=== PATIENT | female | born 1975 | race Caucasian/White ===

== ENCOUNTER 2016-07-06 14:49 | Emergency (ER) | payer MEDICARE, MEDICAID ==
[~2016-07-06] VITALS: Ht 157.5 cm; Wt 67.6 kg
[~2016-07-06 14:49] MED LIST: ULTRAM50 MG PO
[2016-07-06] MEDS ORDERED: FLUOXETINE HCL40 MG PO (14:57)
[2016-07-06] MEDS ORDERED: VALACYCLOVIR H500 M1 PO (14:57)
[2016-07-06 15:31] LABS: HEMOGLOBIN 11.9 g/dL (12.2-16.2); LYMPH # 1.5 K/mm3 (0.7-4.5); LYMPH % 21.1 % (10-50.0)
--- OUTSIDE RECORDS SUMMARY | 2016-07-06 16:18 | External Medical Summary Rpt ---
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 MG 06 TA 12 BL 0 ET OX 00 03 03 12 30 CV 83 SH Ac YC 60 -1 -1 0. S 46 EA ti OD 34 1- 1- 00 PH 61 RE ve ON 99 20 20 0 AR R E 12 10 10 MA G HC 1 CY A L # 15 06 MG 12 0 TA BL ET VA 00 09 02 02 30 30 CV 51 VE Ac LT 17 -0 -2 .0 S 48 RA ti RE 30 4- 6- 00 PH 52 X ve X 93 20 20 AR II 50 30 09 10 MA I 0 8 CY WI MG LL #5 IA CA [address] 7 J ET LE 00 10 02 03 30 30 CV 51 SH Ac VO 37 -3 -2 .0 S 18 EA ti TH 81 0- 6- 00 PH 66 RE ve YR 80 20 20 AR R OX 50 09 10 MA G IN 1 CY A E 75 #5 43 MC 7 G TA BL ET CL 00 02 02 00 12 30 CV 82 SH Ac ON 09 -1 -2 0. S 97 EA ti AZ 30 1 6- 00 PH 26 RE ve EP 83 20 20 0 AR R AM 30 10 10 MA G 1 1 CY A MG #6 12 TA 0 BL ET OX 00 02 02 00 12 30 CV 82 SH Ac YC 60 -1 -2 0. S 97 EA ti OD 34 1- 6- 00 PH 25 RE ve ON 99 20 20 0 AR R E 12 10 10 MA G HC 1 CY A L 15 #6 12 MG 0 TA BL ET FL 00 09 02 03 30 30 CV 51 SH Ac UO 09 -0 -2 .0 S 10 EA ti XE 37 4- 6- 00 PH 18 RE ve TI 19 20 20 AR R NE 85 09 10 MA G 6 CY A HC L #5 40 43 7 MG CA PS UL E FL 00 09 01 02 30 30 CV 51 SH Ac UO 09 -0 -2 .0 S 10 EA ti XE 37 4- 8- 00 PH 18 RE ve TI 19 20 20 AR R NE 85 09 10 MA G 6 CY A HC L #5 40 43 7 MG CA PS UL E CL 00 01 00 12 30 CV 82 SH Ac ON 09 -1 -2 0. S 42 EA ti AZ 30 1- 8- 00 PH 71 RE ve EP 83 20 20 0 AR R AM 30 10 10 MA G 1 1 CY A MG #6 12 TA 0 BL ET 10 01 01 00 20 10 CV 51 SH Ac 12 -1 -2 .0 S 85 EA ti 20 1- 8- 00 PH 42 RE ve 65 20 20 AR R 02 10 10 MA G 0 CY A #5 43 7 LE 00 10 01 02 30 30 CV 51 SH Ac VO 37 -3 -2 .0 S 18 EA ti TH 81 0- 8- 00 PH 66 RE ve YR 80 20 20 AR R OX 50 09 10 MA G IN 1 CY A E 75 #5 43 MC 7 G TA BL ET OX 00 01 01 00 12 30 CV 82 SH Ac YC 60 -1 -2 0. S 42 EA ti OD 34 1- 8- 00 PH 72 RE ve ON 99 20 20 0 AR R E 12 10 10 MA G HC 1 CY A L 15 #6 12 MG 0 TA BL ET 67 01 01 00 7. 7 CV 51 SH Ac 70 -1 -2 00 S 85 EA ti 70 1- 8- 0 PH 41 RE ve 32 20 20 AR R 00 10 10 MA G 7 CY A #5 43 7 VA 00 09 01 01 30 30 CV 51 VE Ac LT 17 -0 -2 .0 S 48 RA ti RE 30 4- 8- 00 PH 52 X ve X 93 20 20 AR II 50 30 09 10 MA I 0 8 CY WI MG LL #5 IA CA [address] 7 J ET VA 00 09 12 00 30 30 CV 51 VE Ac LT 17 -0 -1 .0 S 48 RA ti RE 30 4- 7- 00 PH 52 X ve X 93 20 20 AR II 50 30 09 09 MA I 0 8 CY WI MG LL #5 IA CA [address] 7 J ET LE 00 10 12 01 30 30 CV 51 SH Ac VO 37 -3 -1 .0 S 18 EA ti TH 81 0- 7- 00 PH 66 RE ve YR 80 20 20 AR R OX 50 09 09 MA G IN 1 CY A E 75 #5 43 MC 7 G TA BL ET FL 00 09 12 01 30 30 CV 51 SH Ac UO 09 -0 -1 .0 S 10 EA ti XE 37 4- 7- 00 PH 18 RE ve TI 19 20 20 AR R NE 85 09 09 MA G 6 CY A HC L #5 40 43 7 MG CA PS UL E CL 00 12 12 00 12 30 CV 81 SH Ac ON 09 -1 -1 0. S 93 EA ti AZ 30 0- 7- 00 PH 55 RE ve EP 83 20 20 0 AR R AM 30 09 09 MA G 1 1 CY A MG #6 12 TA 0 BL ET OX 00 12 12 00 12 30 CV 81 SH Ac YC 60 -1 -1 0. S 93 EA ti OD 34 0- 7- 00 PH 56 RE ve ON 99 20 20 0 AR R E 12 09 09 MA G HC 1 CY A L 15 #6 12 MG 0 TA BL ET FL 00 09 11 00 30 30 CV 51 SH Ac UO 09 -0 -1 .0 S 10 EA ti XE 37 4- 9- 00 PH 18 RE ve TI 19 20 20 AR R NE 85 09 09 MA G 6 CY A HC L #5 40 43 7 MG CA PS UL E OX 00 11 11 00 12 30 CV 81 SH Ac YC 60 -1 -1 0. S 44 EA ti OD 34 0- 9- 00 PH 34 RE ve ON 99 20 20 0 AR R E 12 09 09 MA G HC 1 CY A L 15 #6 12 MG 0 TA BL ET CL 00 11 11 00 12 30 CV 81 SH Ac ON 09 -1 -1 0. S 44 EA ti AZ 30 0- 9- 00 PH 35 RE ve EP 83 20 20 0 AR R AM 30 09 09 MA G 1 1 CY A MG #6 12 TA 0 BL ET LE 00 10 11 00 30 30 CV 51 SH Ac VO 37 -3 -1 .0 S 18 EA ti TH 81 0- 9- 00 PH 66 RE ve YR 80 20 20 AR R OX 50 09 09 MA G IN 1 CY A E 75 #5 43 MC 7 G TA BL ET VA 00 07 11 04 [address] Ac LT 17 -0 -1 .0 S 88 ER ti RE 30 6- 9- 00 PH 43 NE ve X 93 20 20 AR BE 50 30 09 09 MA RG [address] #5 EV CA [address] 7 B ET DI 00 10 11 00 12 30 CV 81 SH Ac AZ 37 -3 -0 0. S 27 EA ti EP 80 0- 5- 00 PH 07 RE ve AM 47 20 20 0 AR R 70 09 09 MA G 10 1 CY A MG #6 12 TA 0 BL ET 00 10 11 00 12 30 CV 81 SH Ac 59 -3 -0 0. S 27 EA ti 10 0- 5- 00 PH 08 RE ve 82 20 20 0 AR R 50 09 09 MA G 1 CY A #6 12 0 FL 00 08 10 01 [address] Ac UO 09 -3 -2 .0 S 40 ER ti XE 37 1- 2- 00 PH 89 NE ve TI 19 20 20 AR BE NE 85 09 09 MA RG [address] L #5 EV 40 43 EN 7 B MG CA PS UL E VA 00 07 10 03 [address] Ac LT 17 -0 -2 .0 S 88 ER ti RE 30 6- 2- 00 PH 43 NE ve X 93 20 20 AR BE 50 30 09 09 MA RG [address] #5 EV CA [address] 7 B ET 00 10 10 00 12 30 CV 80 SH Ac 59 -0 -0 0. S 79 EA ti 10 2- 8- 00 PH 56 RE ve 82 20 20 0 AR R 50 09 09 MA G 1 CY A #6 12 0 AZ 59 10 10 00 6. 5 CV 80 SH Ac IT 76 -0 -0 00 S 79 EA ti HR 23 2- 8- 0 PH 58 RE ve OM 06 20 20 AR R YC 00 09 09 MA G IN 1 CY A 25 #6 0 12 MG 0 TA BL ET 66 10 10 00 20 10 CV 80 SH Ac 99 -0 -0 .0 S 79 EA ti 30 2- 8- 00 PH 59 RE ve 53 20 20 AR R 40 09 09 MA G 2 CY A #6 12 0 DI 00 10 10 00 12 30 CV 80 SH Ac AZ 37 -0 -0 0. S 79 EA ti EP 80 2- 8- 00 PH 57 RE ve AM 47 20 20 0 AR R 70 09 09 MA G 10 1 CY A MG #6 12 TA 0 BL ET LE 00 07 10 02 [address] Ac VO 37 -2 -0 .0 S 07 ER ti TH 81 5- 8- 00 PH 25 NE ve YR 80 20 20 AR BE OX 50 09 09 MA RG IN [address] 75 #5 EV 43 EN MC 7 B G TA BL ET LE 00 07 09 01 [address] Ac VO 37 -2 -1 .0 S 07 ER ti TH 81 5- 0- 00 PH 25 NE ve YR 80 20 20 AR BE OX 50 09 09 MA RG IN [address] 75 #5 EV 43 EN MC 7 B G TA BL ET 00 09 09 00 12 30 CV 50 SH Ac 59 -0 -1 0. S 47 EA ti 10 4- 0- 00 PH 77 RE ve 82 20 20 0 AR R 50 09 09 MA G 1 CY A #5 43 7 FL 00 08 09 00 [address] Ac UO 09 -3 -1 .0 S 40 ER ti XE 37 1- 0- 00 PH 89 NE ve TI 19 20 20 AR BE NE 85 09 09 MA RG [address] L #5 EV 40 43 EN 7 B MG CA PS UL E VA 00 07 09 02 [address] Ac LT 17 -0 -1 .0 S 88 ER ti RE 30 6- 0- 00 PH 43 NE ve X 93 20 20 AR BE 50 30 09 09 MA RG [address] #5 EV CA [address] 7 B ET DI 00 09 09 00 [address] Ac AZ 37 -0 -1 0. S 47 ER ti EP 80 4- 0- 00 PH 79 NE ve AM 47 20 20 0 AR BE 70 09 09 MA RG [address] MG #5 EV 43 EN TA 7 B BL ET 00 08 08 00 12 30 CV 50 SH Ac 59 -0 -2 0. S 16 EA ti 10 3- 7- 00 PH 57 RE ve 82 20 20 0 AR R 50 09 09 MA G 1 CY A #5 43 7 FL 00 01 08 06 [address] Ac UO 09 -2 -1 .0 S 17 ER ti XE 37 1- 3- 00 PH 54 NE ve TI 19 20 20 AR BE NE 85 09 09 MA RG [address] L #5 EV 40 43 EN 7 B MG CA PS UL E LE 00 07 08 00 [address] Ac VO 37 -2 -1 .0 S 07 ER ti TH 81 5- 3- 00 PH 25 NE ve YR 80 20 20 AR BE OX 50 09 09 MA RG IN [address] 75 #5 EV 43 EN MC 7 B G TA BL ET DI 00 08 08 00 [address] Ac AZ 37 -0 -1 .0 S 15 ER ti EP 80 3- 3- 00 PH 58 NE ve AM 47 20 20 AR BE 70 09 09 MA RG [address] MG #5 EV 43 EN TA 7 B BL ET VA 00 07 08 01 [address] Ac LT 17 -0 -1 .0 S 88 ER ti RE 30 6- 3- 00 PH 43 NE ve X 93 20 20 AR BE 50 30 09 09 MA RG [address] #5 EV CA [address] 7 B ET VA 00 07 07 00 [address] Ac LT 17 -0 -1 .0 S 88 ER ti RE 30 6- 6- 00 PH 43 NE ve X 93 20 20 AR BE 50 30 09 09 MA RG [address] #5 EV CA [address] 7 B ET DI 00 07 07 00 [address] Ac AZ 37 -0 -1 .0 S 86 ER ti EP 80 3- 6- 00 PH 31 NE ve AM 47 20 20 AR BE 70 09 09 MA RG [address] MG #5 EV 43 EN TA 7 B BL ET 00 07 07 00 18 6 CV 49 STEPHEN Ac 59 -0 -1 .0 S 90 NS ti 10 7- 6- 00 PH 46 EN ve 82 20 20 AR 40 09 09 MA KE 1 CY ND AL #5 L 43 E 7 LE 00 03 07 03 [address] Ac VO 37 -2 -0 .0 S 81 ER ti TH 81 3- 2- 00 PH 62 NE ve YR 80 20 20 AR BE OX 50 09 09 MA RG IN [address] 75 #5 EV 43 EN MC 7 B G TA BL ET FL 00 01 07 05 [address] Ac UO 09 -2 -0 .0 S 17 ER ti XE 37 1- 2- 00 PH 54 NE ve TI 19 20 20 AR BE NE 85 09 09 MA RG [address] L #5 EV 40 43 EN 7 B MG CA PS UL E DI 00 05 06 01 [address] Ac AZ 37 -0 -1 .0 S 27 ER ti EP 80 4- 8- 00 PH 40 NE ve AM 47 20 20 AR BE 70 09 09 MA RG [address] MG #5 EV 43 EN TA 7 B BL ET VA 00 03 06 02 [address] Ac LT 17 -3 -1 .0 S 90 ER ti RE 30 1 8- PH 49 NE ve X 93 20 20 AR BE 50 30 09 09 MA RG [address] #5 EV CA [address] 7 B ET FL 00 01 06 04 [address] Ac UO 09 -2 -0 .0 S 17 ER ti XE 37 1- 4- 00 PH 54 NE ve TI 19 20 20 AR BE NE 85 09 09 MA RG [address] L #5 EV 40 43 EN 7 B MG CA PS UL E LE 00 03 06 02 [address] Ac VO 37 -2 -0 .0 S 81 ER ti TH 81 3- 4- 00 PH 62 NE ve YR 80 20 20 AR BE OX 50 09 09 MA RG IN [address] 75 #5 EV 43 EN MC 7 B G TA BL ET NE 00 05 05 00 [address] Ac OM 78 -0 -2 .0 S 27 ER ti ET 11 - 1- 00 PH 39 NE ve STEPHEN 83 20 20 AR BE ZI 00 09 09 MA RG NE [address] 25 #5 EV 43 EN MG 7 B TA BL ET DI 00 05 05 00 [address] Ac AZ 37 -0 -2 .0 S 27 ER ti EP 80 4- 1- 00 PH 40 NE ve AM 47 20 20 AR BE 70 09 09 MA RG [address] MG #5 EV 43 EN TA 7 B BL ET FL 00 01 05 03 [address] Ac UO 09 -2 -0 .0 S 17 ER ti XE 37 1- 7- 00 PH 54 NE ve TI 19 20 20 AR BE NE 85 09 09 MA RG [address] L #5 EV 40 43 EN 7 B MG CA PS UL E VA 00 03 05 01 [address] Ac LT 17 -3 -0 .0 S 90 ER ti RE 30 1 7- 00 PH 49 NE ve X 93 20 20 AR BE 50 30 09 09 MA RG [address] #5 EV CA [address] 7 B ET LE 00 03 05 01 [address] Ac VO 37 -2 -0 .0 S 81 ER ti TH 81 3- 7- 00 PH 62 NE ve YR 80 20 20 AR BE OX 50 09 09 MA RG IN [address] 75 #5 EV 43 EN MC 7 B G TA BL ET DI 00 04 04 00 [address] Ac AZ 37 -0 -2 .0 S 96 ER ti EP 80 6- 3- 00 PH 48 NE ve AM 47 20 20 AR BE 70 09 09 MA RG [address] MG #5 EV 43 EN TA 7 B BL ET FL 00 01 04 02 [address] Ac UO 09 -2 -0 .0 S 17 ER ti XE 37 1- 9- 00 PH 54 NE ve TI 19 20 20 AR BE NE 85 09 09 MA RG [address] L #5 EV 40 43 EN 7 B MG CA PS UL E PH 65 03 04 00 9. [address] Ac EN 16 -2 -0 00 S 83 ER ti AZ 20 3- 9- 0 PH 27 NE ve OP 52 20 20 AR BE YR 01 09 09 MA RG ID [address] E #5 EV 20 43 EN 0 7 B MG TA B OV 51 03 04 00 59 2 CV 48 PA Ac ID 67 -3 -0 .0 S 89 TE ti E 25 0- 9- 00 PH 57 L ve 0. 27 20 20 AR 5% 60 09 09 MA RA 4 CY L LO TI #5 ON 43 7 VA 00 03 04 00 [address] Ac LT 17 -3 -0 .0 S 90 ER ti RE 30 1- 9- 00 PH 49 NE ve X 93 20 20 AR BE 50 30 09 09 MA RG [address] #5 EV CA [address] 7 B ET LE 00 03 04 00 [address] Ac VO 37 -2 -0 .0 S 81 ER ti TH 81 3- 9- 00 PH 62 NE ve YR 80 20 20 AR BE OX 50 09 09 MA RG IN [address] 75 #5 EV 43 EN MC 7 B G TA BL ET VA 00 09 03 05 [address] Ac LT 17 -0 -1 .0 S 08 ER ti RE 30 9- 2- PH 78 NE ve X 93 20 20 AR BE 50 30 08 09 MA RG [address] #5 EV CA [address] 7 B ET DI 00 03 03 00 [address] Ac AZ 37 -0 -1 .0 S 63 ER ti EP 80 6- 2- 00 PH 21 NE ve AM 47 20 20 AR BE 70 09 09 MA RG [address] MG #5 EV 43 EN TA 7 B BL ET FL 00 01 02 01 [address] Ac UO 09 -2 -2 .0 S 17 ER ti XE 37 1- 6- PH 54 NE ve TI 19 20 20 AR BE NE 85 09 09 MA RG [address] L #5 EV 40 43 EN 7 B MG CA PS UL E LE 00 09 02 05 [address] Ac VO 37 -0 -2 .0 S 95 ER ti TH 81 9- 6- 00 PH 24 NE ve YR 80 20 20 AR BE OX 50 08 09 MA RG IN [address] 75 #5 EV 43 EN MC 7 B G TA BL ET DI 00 01 02 01 [address] Ac AZ 37 -0 -1 .0 S 03 ER ti EP 80 7- 2- 00 PH 90 NE ve AM 47 20 20 AR BE 70 09 09 MA RG [address] MG #5 EV 43 EN TA 7 B BL ET VA 00 09 02 04 [address] Ac LT 17 -0 -1 .0 S 08 ER ti RE 30 9- 2- 00 PH 78 NE ve X 93 20 20 AR BE 50 30 08 09 MA RG [address] #5 EV CA [address] 7 B ET LE 00 09 01 04 [address] Ac VO 37 -0 -3 .0 S 95 ER ti TH 81 9- 0- 00 PH 24 NE ve YR 80 20 20 AR BE OX 50 08 09 MA RG IN [address] 75 #5 EV 43 EN MC 7 B G TA BL ET FL 00 01 01 00 [address] Ac UO 09 -2 -3 .0 S 17 ER ti XE 37 1- 0- 00 PH 54 NE ve TI 19 20 20 AR BE NE 85 09 09 MA RG [address] L #5 EV 40 43 EN 7 B MG CA PS UL E LO 00 01 01 00 [address] Ac RA 78 -0 -1 .0 S 03 ER ti TA 15 7- 5- 00 PH 74 NE ve DI 07 20 20 AR BE NE 70 09 09 MA RG [address] #5 EV MG 43 EN 7 B TA BL ET VA 00 09 01 03 [address] Ac LT 17 -0 -1 .0 S 08 ER ti RE 30 9- 5- 00 PH 78 NE ve X 93 20 20 AR BE 50 30 08 09 MA RG [address] #5 EV CA [address] 7 B ET DI 00 01 01 00 [address] Ac AZ 37 -0 -1 .0 S 03 ER ti EP 80 7- 5- 00 PH 90 NE ve AM 47 20 20 AR BE 70 09 09 MA RG [address] MG #5 EV 43 EN TA 7 B BL ET FL 00 12 01 00 [address] Ac UO 09 -2 -0 .0 S 90 ER ti XE 37 3- 1- 00 PH 90 NE ve TI 19 20 20 AR BE NE 85 08 09 MA RG [address] L #5 EV 40 43 EN 7 B MG CA PS UL E LE 00 09 01 03 [address] Ac VO 37 -0 -0 .0 S 95 ER ti TH 81 9- 1- 00 PH 24 NE ve YR 80 20 20 AR BE OX 50 08 09 MA RG IN [address] 75 #5 EV 43 EN MC 7 B G TA BL ET FL 68 12 12 00 1[address] Ac UC 46 -1 -1 00 S 79 ER ti ON 20 2- 8- 0 PH 75 NE ve AZ 10 20 20 AR BE OL 34 08 08 MA RG E [address] 0 #5 EV MG 43 EN 7 B TA BL ET DI 00 12 12 00 [address] Ac AZ 37 -0 -1 .0 S 74 ER ti EP 80 8- 8- 00 PH 48 NE ve AM 47 20 20 AR BE 70 08 08 MA RG [address] MG #5 EV 43 EN TA 7 B BL ET CE 00 12 12 00 [address] Ac PH 09 -0 -1 .0 S 74 ER ti AL 33 8- 8- 00 PH 47 NE ve EX 14 20 20 AR BE IN 50 08 08 MA RG [address] 0 #5 EV MG 43 EN 7 B CA PS UL E VA 00 09 12 02 [address] Ac LT 17 -0 -0 .0 S 08 ER ti RE 30 9- 4- 00 PH 78 NE ve X 93 20 20 AR BE 50 30 08 08 MA RG [address] #5 EV CA [address] 7 B ET FL 00 09 11 02 [address] Ac UO 09 -2 -2 .0 S 95 ER ti XE 37 0- 0- 00 PH 25 NE ve TI 19 20 20 AR BE NE 85 08 08 MA RG [address] L #5 EV 40 43 EN 7 B MG CA PS UL E DI 00 11 11 00 [address] Ac AZ 37 -0 -2 .0 S 43 ER ti EP 80 6- 0- 00 PH 78 NE ve AM 47 20 20 AR BE 70 08 08 MA RG [address] MG #5 EV 43 EN TA 7 B BL ET LE 00 09 11 02 [address] Ac VO 37 -0 -2 .0 S 95 ER ti TH 81 9- 0- 00 PH 24 NE ve YR 80 20 20 AR BE OX 50 08 08 MA RG IN [address] 75 #5 EV 43 EN MC 7 B G TA BL ET FL 00 09 11 01 [address] Ac UO 09 -2 -0 .0 S 95 ER ti XE 37 0- 7- 00 PH 25 NE ve TI 19 20 20 AR BE NE 85 08 08 MA RG [address] L #5 EV 40 43 EN 7 B MG CA PS UL E VA 00 09 11 01 [address] Ac LT 17 -0 -0 .0 S 08 ER ti RE 30 9- 7- 00 PH 78 NE ve X 93 20 20 AR BE 50 30 08 08 MA RG [address] #5 EV CA [address] 7 B ET LE 00 09 11 01 [address] Ac VO 37 -0 -0 .0 S 95 ER ti TH 81 9- 7- 00 PH 24 NE ve YR 80 20 20 AR BE OX 50 08 08 MA RG IN [address] 75 #5 EV 43 EN MC 7 B G TA BL ET DI 00 09 10 01 [address] Ac AZ 37 -0 -2 .0 S 84 ER ti EP 80 9- 3- 00 PH 25 NE ve AM 47 20 20 AR BE 70 08 08 MA RG [address] MG #5 EV 43 EN TA 7 B BL ET FL 00 09 10 00 [address] Ac UO 09 -2 -0 .0 S 95 ER ti XE 37 0- 9- 00 PH 25 NE ve TI 19 20 20 AR BE NE 85 08 08 MA RG [address] L #5 EV 40 43 EN 7 B MG CA PS UL E LE 00 09 10 00 [address] Ac VO 37 -0 -0 .0 S 95 ER ti TH 81 9- 9- 00 PH 24 NE ve YR 80 20 20 AR BE OX 50 08 08 MA RG IN [address] 75 #5 EV 43 EN MC 7 B G TA BL ET VA 00 09 10 00 [address] Ac LT 17 -0 -0 .0 S 08 ER ti RE 30 9- 9- 00 PH 78 NE ve X 93 20 20 AR BE 50 30 08 08 MA RG [address] #5 EV CA [address] 7 B ET DI 00 09 09 00 [address] Ac AZ 37 -0 -2 .0 S 84 ER ti EP 80 9- 6- 00 PH 25 NE ve AM 47 20 20 AR BE 70 08 08 MA RG [address] MG #5 EV 43 EN TA 7 B BL ET VA 00 07 09 01 30 30 CV 46 PA Ac LT 17 -2 -1 .0 S 44 TE ti RE 30 9- 1- 00 PH 20 L ve X 93 20 20 AR 50 30 08 08 MA RA 0 8 CY L MG #[address] 7 ET LE 00 08 08 00 30 30 CV 46 PA Ac VO 37 -1 -2 .0 S 61 TE ti TH 81 8- 8- 00 PH 58 L ve YR 80 20 20 AR OX 50 08 08 MA RA IN 1 CY L E 75 #5 43 MC 7 G TA BL ET FL 00 01 08 05 30 30 CV 44 QU Ac UO 09 -2 -2 .0 S 67 AT ti XE 37 9- 8- 00 PH 34 KE ve TI 19 20 20 AR ME NE 85 08 08 MA YE 6 CY R HC BR L #5 AD [address] MG A CA PS UL E VA 00 07 08 00 30 30 CV 46 PA Ac LT 17 -2 -1 .0 S 44 TE ti RE 30 9- 4- 00 PH 20 L ve X 93 20 20 AR 50 30 08 08 MA RA 0 8 CY L MG #[address] 7 ET LE 00 04 08 01 30 30 CV 45 PA Ac VO 37 -3 -0 .0 S 63 TE ti TH 81 0- 1- 00 PH 26 L ve YR 80 20 20 AR OX 50 08 08 MA RA IN 1 CY L E 75 #5 43 MC 7 G TA BL ET FL 00 01 08 04 30 30 CV 44 QU Ac UO 09 -2 -0 .0 S 67 AT ti XE 37 9- 1- 00 PH 34 KE ve TI 19 20 20 AR ME NE 85 08 08 MA YE 6 CY R HC BR L #5 AD [address] MG A CA PS UL E FL 00 01 07 03 30 30 CV 44 QU Ac UO 09 -2 -0 .0 S 67 AT ti XE 37 9- 3- 00 PH 34 KE ve TI 19 20 20 AR ME NE 85 08 08 MA YE 6 CY R HC BR L #5 AD [address] MG A CA PS UL E VA 00 06 07 00 30 30 CV 46 QU Ac LT 17 -1 -0 .0 S 05 AT ti RE 30 5- 3- 00 PH 75 KE ve X 93 20 20 AR ME 50 30 08 08 MA YE 0 8 CY R MG BR #5 AD CA [address] ET A DI 00 06 07 00 60 30 SA 69 No Ac AZ 59 -2 -0 .0 VE 83 t ti EP 15 5- 3- 00 22 Av ve AM 62 20 20 DI ai 01 08 08 SC la 10 0 OU bl NT e MG DR TA UG BL S ET 00 05 06 00 60 30 SA 69 No Ac 40 -2 -0 .0 VE 54 t ti 60 3- 5- 00 86 Av ve 58 20 20 DI ai 20 08 08 SC la 1 OU bl NT e DR UG S VA 00 05 06 00 30 30 CV 45 QU Ac LT 17 -2 -0 .0 S 85 AT ti RE 30 2- 5- 00 PH 36 KE ve X 93 20 20 AR ME 50 30 08 08 MA YE 0 8 CY R MG BR #5 AD CA [address] ET A DI 00 05 06 00 60 30 CV 45 PA Ac AZ 37 -2 -0 .0 S 90 TE ti EP 80 3- 5- 00 PH 01 L ve AM 47 20 20 AR 70 08 08 MA RA 10 1 CY L MG #5 43 TA 7 BL ET AZ 59 05 05 00 6. 1 CV 45 No Ac IT 76 -0 -2 00 S 69 t ti HR 23 6- 2- 0 PH 17 Av ve OM 06 20 20 AR ai YC 00 08 08 MA la IN 1 CY bl e 25 #5 0 43 MG 7 TA BL ET FL 00 01 05 02 30 30 CV 44 No Ac UO 09 -2 -2 .0 S 67 t ti XE 37 9- 2- 00 PH 34 Av ve TI 19 20 20 AR ai NE 85 08 08 MA la 6 CY bl HC e L #5 40 43 7 MG CA PS UL E FL 68 05 05 00 1. 1 CV 45 No Ac UC 46 -0 -2 00 S 69 t ti ON 20 6- 2- 0 PH 18 Av ve AZ 10 20 20 AR ai OL 34 08 08 MA la E 0 CY bl 15 e 0 #5 MG 43 7 TA BL ET VA 00 04 05 00 30 30 CV 45 No Ac LT 17 -2 -0 .0 S 53 t ti RE 30 1- 8- 00 PH 96 Av ve X 93 20 20 AR ai 50 30 08 08 MA la 0 8 CY bl MG e #[address] 7 ET DI 00 04 05 00 80 27 SA 69 No Ac AZ 59 -2 -0 .0 VE 32 t ti EP 15 9- 8- 00 65 Av ve AM 62 20 20 DI ai 01 08 08 SC la 10 0 OU bl NT e MG TA UG BL S ET LE 00 04 05 00 30 30 CV 45 No Ac VO 37 -3 -0 .0 S 63 t ti TH 81 0- 8- 00 PH 26 Av ve YR 80 20 20 AR ai OX 50 08 08 MA la IN 1 CY bl E e 75 #5 43 MC 7 G TA BL ET 00 04 05 00 55 28 SA 69 No Ac 40 -2 -0 .0 VE 32 t ti 60 9- 8- 00 66 Av ve 58 20 20 DI ai 20 08 08 SC la 1 OU bl NT e DR UG S LE 00 01 04 02 30 30 CV 44 No Ac VO 37 -0 -2 .0 S 65 t ti TH 81 7- 4- 00 PH 24 Av ve YR 80 20 20 AR ai OX 90 08 08 MA la IN 1 CY bl E e 10 #5 0 43 MC 7 G TA BL ET DI 00 04 04 00 90 30 SA 69 No Ac AZ 59 -0 -1 .0 VE 11 t ti EP 15 3- 0- 00 19 Av ve AM 62 20 20 DI ai 01 08 08 SC la 10 0 OU bl NT e MG DR TA UG BL S ET 00 04 04 00 55 28 SA 69 No Ac 40 -0 -1 .0 VE 11 t ti 60 3- 0- 00 18 Av ve 58 20 20 DI ai 20 08 08 SC la 1 OU bl NT e DR UG S VA 00 03 04 00 30 30 CV 45 No Ac LT 17 -2 -1 .0 S 24 t ti RE 30 2- 0- 00 PH 42 Av ve X 93 20 20 AR ai 50 30 08 08 MA la 0 8 CY bl MG e #[address] 7 ET LE 00 01 04 01 30 30 CV 44 No Ac VO 37 -0 -0 .0 S 65 t ti TH 81 7- 7- 00 PH 24 Av ve YR 80 20 20 AR ai OX 90 08 08 MA la IN 1 CY bl E e 10 #5 0 43 MC 7 G TA BL ET FL 00 01 04 01 30 30 CV 44 No Ac UO 09 -2 -0 .0 S 67 t ti XE 37 9- 7- 00 PH 34 Av ve TI 19 20 20 AR ai NE 85 08 08 MA la 6 CY bl HC e L #5 40 43 7 MG CA PS UL E DI 00 02 04 01 90 30 SA 68 No Ac AZ 59 -0 -0 .0 VE 61 t ti EP 15 5- 7- 00 42 Av ve AM 62 20 20 DI ai 01 08 08 SC la 10 0 OU bl NT e MG DR TA UG BL S ET OV 51 02 04 00 59 1 CV 45 No Ac ID 67 -2 -0 .0 S 00 t ti E 25 8- 7- 00 PH 36 Av ve 0. 27 20 20 AR ai 5% 60 08 08 MA la 4 CY bl LO e TI #5 ON 43 7 LE 00 01 03 00 30 30 CV 44 No Ac VO 37 -0 -2 .0 S 65 t ti TH 81 7- 6- 00 PH 24 Av ve YR 80 20 20 AR ai OX 90 08 08 MA la IN 1 CY bl E e 10 #5 0 43 MC 7 G TA BL ET FL 00 01 03 00 30 30 CV 44 No Ac UO 09 -2 -2 .0 S 67 t ti XE 37 9- 6- 00 PH 34 Av ve TI 19 20 20 AR ai NE 85 08 08 MA la 6 CY bl HC e L #5 40 43 7 MG CA PS UL E DI 00 02 03 00 90 30 SA 68 No Ac AZ 59 -0 -2 .0 VE 61 t ti EP 15 5- 6- 00 42 Av ve AM 62 20 20 DI ai 01 08 08 SC la 10 0 OU bl NT e MG DR TA UG BL S ET 00 02 03 00 55 28 SA 68 No Ac 40 -0 -2 .0 VE 61 t ti 60 5- 6- 00 41 Av ve 58 20 20 DI ai 20 08 08 SC la 1 OU bl NT e DR UG S VA 00 02 03 00 30 30 CV 44 No Ac LT 17 -1 -2 .0 S 90 t ti RE 30 9- 6- 00 PH 48 Av ve X 93 20 20 AR ai 50 30 08 08 MA la 0 8 CY bl MG e #[address] ET VA 00 03 00 30 30 CV 44 No Ac LT 17 -2 -2 .0 S 60 t ti RE 30 2- 5- 00 PH 59 Av ve X 93 20 20 AR ai 50 30 08 08 MA la 0 8 CY bl MG e #[address] ET AZ 59 01 03 00 6. 5 CV 44 No Ac IT 76 -2 -2 00 S 60 t ti HR 23 2- 5- 0 PH 58 Av ve OM 06 20 20 AR ai YC 00 08 08 MA la IN 1 CY bl e 25 #5 0 43 MG 7 TA BL ET Immunization Name Date Route CVX Reacti Commen Provid Is Given on t er Refuse d TDAP ST. No VACCIN 2014 ELIZAB E 7 ETH YRS/> ERICK IM Procedures Procedure DOS Code Location Performer Comment MAMMOGRAP [address] HY 5 ARLENE ARLENE BILATERAL FT FT [facility] US BREAST 90667 RADIOLOGY REINOSO UNI REAL 5 NAHOMY TIME ASSOCIATE WITH S OF [facility] IMAGE LIMITED TDAP [address] VACCINE 7 5 ARLENE JACOBS YRS/> IM ERICK ERICK SIMPLE 53869 [facility] REPAIR 5 EMERGENCY EMERGENCY SCALP/NEC K/AX/TRACY PHYSICIAN PHYSICIAN T/TRUNK S S 2.5CM/< INCISION [address] & 5 ARLENE JACOBS DRAINAGE ERICK ERICK ABSCESS SIMPLE/SI NGLE NEEDLE [address] EMG EA 5 ARLENE JACOBS EXTREMTY MED CTR MED CTR W/PARASPI BOAT GARNISHER ST BOAT GARNISHER ST NL AREA COMPLETE NERVE [address] ST [place] DEVIN CONDUCTIO 5 ARLENE N STUDIES 9-10 PHYSICIAN STUDIES S WRIST L3908 [facility] HAND 5 LTH LTH ORTHOSIS ORTHOPAED ORTHOPAED EXT IC CTR IC CTR CONTROL COCK-UP PREFAB NONEMERGE A0100 LKLP CAC BENNETTS NCY 3 INC TRANSPORT TRANSPORT REGION 9 ATFORMERLY [facility] CO ATION; L TAXI COLLECTIO 31869 [facility]. N VENOUS 3 [facility]ERMAN ARLENE BLOOD ERICK ERICK VENIPUNCT URE BLOOD 32807 [facility]. COUNT 3 [facility] COMPLETE ERICK ERICK AUTO&AUTO DIFRNTL WBC COLLECTIO 00991 [facility]. N VENOUS 3 [facility] BLOOD ERICK ERICK VENIPUNCT URE HEPATIC 41636 [facility]. FUNCTION 3 [facility] ERICK BLOOD 06558 [facility]. COUNT 3 [facility] COM[facility] ERICK ERICK AUTO&AUTO DIFRNTL WBC IADNA 54491 [facility]. HEPATITIS 3 [facility] C QUANT ERICK ERICK & REVERSE TRANSCRIP TION NONEMERGE A0100 LKLP CAC BENNETTS NCY 3 INC TRANSPORT TRANSPORT REGION 9 ATION CO ATION; L TAXI HEPATIC 94781 [facility] FUNCTION 3 [facility] CENTER COLLECTIO 56587 [facility] VENOUS 3 ARLENE JACOBS BLOOD [facility] MEDICAL VENIPUNCT CENTER CENTER URE BLOOD 54422 [facility] COUNT 3 ARLENE LEYTH COMPLETE [facility] AUTO&AUTO CENTER CENTER DIFRNTL WBC BLOOD 96916 [facility]. COUNT 3 ARLENEROSEMARIE JACOBS COMPLETE ERICK ERICK AUTO&AUTO DIFRNTL WBC COLLECTIO 75330 [facility]. N VENOUS 3 ARLENEROSEMARIE JOLLEYBETH BLOOD ERICK ERICK VENIPUNCT URE HEPATIC 16801 [facility] FUNCTION 3 ARLENEROSEMARIE LEYTH PANEL ERICK ERICK IADNA 32239 [facility] HEPATITIS 3 ARLENE JACOBS C QUANT ERICK ERICK & REVERSE TRANSCRIP TION HEPATIC 75936 [facility] FUNCTION 3 ARLENE JACOBS PANEL FT FT [facility] BLOOD 34729 [facility] COUNT 3 ARLENE LEYTH COMPLETE FT FT AUTO&AUTO [facility] DIFRNTL WBC COLLECTIO 44888 [facility] VENOUS 3 ARLENE JACOBS BLOOD FT FT VENIPUNCT HIMA HIMA URE NONEMERGE A0100 LKLP CAC DIANAS NCY 3 INC TRANSPORT TRANSPORT REGION 9 ATION CO ATION; L TAXI COLLECTIO 12812 [facility] N VENOUS 3 ARLENE JACOBS BLOOD FT FT VENIPUNCT HIMA RABAGO URE NFCT AGNT 46521 [facility] GENOTYP 3 ARLENE HUGGINSZABETH NUCLEIC FT FT ACID [facility] HEPATITIS C VIRUS IADNA 35981 [facility] HEPATITIS 3 ARLENE HUGGINSZABETH C QUANT FT FT & REVERSE HIMA HIMA TRANSCRIP TION LOCM Q9965 DOERGEMarilyn DOMARSR 100-199 3 KIR KIR MG/ML IODINE CONCENTRA TION PER ML INJ J0702 DOERGER DOERGER BETAMETHA 3 KIR KIR SONE ACETATE & PHOSPHATE 3 MG NJX 58324 DOERGEMarilyn DOERGER DX/THER 3 KIR KIR SBST EPIDURAL/ SUBRACH CERV/THOR ACIC FLUOR 74100 DOERGER DOERGER NEEDLE/CA 3 KIR KIR TH SPINE/PAR ASPINAL DX/THER ADDON RADIOLOGI 47534 GRUNKEMEY GRUNKEMEY C 3 ER MAT ER MAT EXAMINATI ON TIBIA & FIBULA 2 VIEWS RADEX 88472 GRUNK[facility]EY GRUNKEMEY SPINE 3 ER MAT ER MAT CERVICAL 2 OR 3 VIEWS RADEX 60301 GRUNKEMEY GRUNKEMEY FOREARM 2 3 ER MAT ER MAT VIEWS COLLECTIO 13794 THE THE N VENOUS [address] [place] [address] VENIPUNCT URE IADNA 57210 THE THE HEPATITIS [address] [place] [address] & REVERSE TRANSCRIP TION COMPREHEN 83092 THE THE SIVE [address] [place] [address] [place] [address] THE THE FREE [address] [place] [address] [place] [address] THE THE THYROID [address] [place] [address] NG HORMONE TSH NONEMERGE A0100 LKLP BENNETTS NCY 2 COMMUNITY TRANSPORT TRANSPORT ACTION ATION CO ATION; L TAXI NONEMERGE A0100 LKLP BENNETTS NCY 2 COMMUNITY TRANSPORT TRANSPORT ACTION [place]ION CO [place]; [place] [address] THE THE ABDOMINAL [address] [place] [address] TIME W/IMAGE LIMITED MRI [address] SPINAL 2 ARLENE ARLENE CANAL ERICK ERICK THORACIC W/O CONTRAST MATRL MRI [address] SPIN[facility] 2 ARLENE ARLENE CANAL ERICK ERICK LUMBAR W/O CONTRAST MATERIAL MRI [address] SPINAL 2 ARLENE ARLENE CANAL ERICK ERICK CERVICAL W/O CONTRAST MATRL INJECTION 30665 BINDU G BINDU G 2 SINGLE/ML T TRIGGER POINT 3/> MUSCLES RADEX 72075 [facility] ANKLE 1 PHYSICIAN PHYSICIAN COMPLETE S S MINIMUM 3 VIEWS RADEX 22771 [facility] FOREARM 2 1 PHYSICIAN PHYSICIAN VIEWS S S RADIOLOGI 06322 [facility] C 1 PHYSICIAN PHYSICIAN EXAMINATI S S ON TIBIA & FIBULA 2 VIEWS RADIOLOGI 28730 [facility] LINDA C 1 PHYSICIAN EXAMINATI S ON TIBIA & FIBULA 2 VIEWS RADEX 09764 [facility] 2 1 PHYSICIAN VIEWS S DUP-SCAN 12701 [facility] XTR VEINS 1 PHYSICIAN S UNILATERA L/LIMITED STUDY SBSQ 81899 [facility] 1 PHYSICIAN II JAM CARE/DAY S 15 MINUTES SBSQ 19755 [facility] 1 PHYSICIAN KRI CARE/DAY S 35 MINUTES REPAIR 01752 [facility] PHYSICIAN N BETTINA SCALP/ARM S /LEG 2.6-7.5 CM INITIAL 20112 [facility] INPATIENT 1 PHYSICIAN II JAM CONSULT S NEW/ESTAB PT 55 MIN ANES 39829 [facility] OPEN/SURG 1 PHYSICIAN S ARTHROSCO PIC PROC KNEE JOINT NOS RADEX 64208 [facility] 2 1 PHYSICIAN VIRGINIA VIEWS S RADIOLOGI 46258 [facility] C 1 PHYSICIAN SEA EXAMINATI S ON CHEST SINGLE VIEW FRONTAL RADEX 28183 [facility] ANKLE 1 PHYSICIAN SEA COMPLETE S MINIMUM 3 [place] [address] [facility] RADIAL&UL 1 PHYSICIAN N BETTINA MAYA SHAFT S FX W/FIXJ RADIUS&UL NA ARTHRT 20340 [facility] KNE 1 PHYSICIAN N BETTINA W/EXPL S DRG/RMVL FB RADIOLOGI 64052 [facility] C 1 PHYSICIAN SEA EXAMINATI S ON TIBIA & FIBULA 2 VIEWS REPAIR 15204 [facility] COMPLEX 1 PHYSICIAN N BETTINA SCALP/ARM S /LEG EA ADDL 5 CM/< [place] [address] [facility] ABDOMEN & 1 PHYSICIAN SEA PELVIS S W/CONTRAS T MATERIAL CT LUMBAR 82550 [facility] SPINE 1 PHYSICIAN SEA W/O S CONTRAST MATERIAL RADEX 89645 [facility] ELBOW 2 1 PHYSICIAN PHYSICIAN VIEWS S S AMB A0431 [facility]ICE 1 CONVNTION HELICOPTE HELICOPTE AIR SRVC RS INC RS INC TRANSP[place] [address] [place] [address] [facility] HEAD/BRAI 1 PHYSICIAN SEA N W/O S CONTRAST MATERIAL RADIOLOGI 48116 [facility] 1 PHYSICIAN KALEN EXAMINATI S ON CHEST SINGLE VIEW FRONTAL CT THORAX 18341 [facility] 1 PHYSICIAN [place] [address] [facility] THORACIC 1 PHYSICIAN SEA SPINE W/O S CONTRAST MATERIAL RADIOLOGI 08220 [facility] 1 PHYSICIAN SEA EXAMINATI S ON KNEE 1/2 VIEWS RADIOLOGI 35127 [facility] 1 PHYSICIAN SEA EXAMINATI [place] [address] [place] [address] [facility] CERVICAL 1 PHYSICIAN SEA SPINE W/O S CONTRAST MATERIAL RADEX 03679 [facility] FOREARM 2 1 PHYSICIAN SEA VIEWS S RADEX 58587 [facility] WRIST 1 PHYSICIAN SEA COMPLETE S MINIMUM 3 VIEWS INITIAL 68058 [facility] INPATIENT 1 PHYSICIAN KRI CONSULT S NEW/ESTAB PT 55 MIN RADIOLOGI 89505 [facility] 1 PHYSICIAN KALEN EXAMINATI S ON PELVIS 1/2 VIEWS AFO TIB L2116 [facility] FX 1 PROSTH PROSTH ORTHOTIC ORTHO ORTHO RIGID CTRINC CTRINC PRFAB W/FIT & ADJ ADD LOW L2840 [facility] NICHOL EXTREM 1 PROSTH PROSTH ORTHOTIC ORTHO ORTHO TIB CTRINC CTRINC LENGTH SOCK FX/= EA SBSQ 28103 [facility] 1 PHYSICIAN CARE/DAY S 35 MINUTES RADIOLOGI 31998 RADHA SOTO- C EXAM 1 PHYSICIAN CHEST 2 S VIEWS FRONTAL&L ATERAL SBSQ 61928 [facility] 1 PHYSICIAN CARE/DAY S 35 MINUTES DUP-SCAN 53832 [facility] XTR VEINS 1 PHYSICIAN KYLAH COMPLETE S BILATERAL STUDY RADIOLOGI 62082 [facility] 1 PHYSICIAN KALEN EXAMINATI S ON KNEE 1/2 VIEWS SBSQ 03391 [facility] 1 PHYSICIAN KRI CARE/DAY S 35 MINUTES SBSQ 91392 [facility] 1 PHYSICIAN CARE/DAY S 25 MINUTES ANES OPEN 06811 [facility] 1 PHYSICIAN GRE OSTEOTOMY S /OSTEOPLA STY TIBIA&/FI BULA TX TIBL 44667 [facility] SHFT FX 1 PHYSICIAN N BETTINA IMED S IMPLT W/WO SCREWS&/C ERCLA OPEN 7936 [facility] 1 Y Y FRACTURE [facility] INC. INC. TIBIA&FIB W/INTERNA L FIX RADIOLOGI 13235 [facility] 1 PHYSICIAN KALNE EXAMINATI S ON TIBIA & FIBULA [address] LUMBAR 45402 [facility] SPINE 1 PHYSICIAN ASKILL W/O S MAR CONTRAST MATERIAL RADIOLOGI 43611 [facility] 1 PHYSICIAN RAL EXAMINATI S ON TIBIA & [place] [address] [place] [address] [facility] ABDOMEN & 1 PHYSICIAN RAL PELVIS S W/CONTRAS T MATERIAL AMB A0431 [facility] 1 Y Y [facility] AIR SRVC INC [place] TRAN[place] [address] [place] [address] [facility] CERVICAL 1 PHYSICIAN ASKILL SPINE W/O S MAR CONTRAST MATERIAL RADIOLOGI 41287 [facility] C 1 PHYSICIAN RAL EXAMINATI S ON KNEE 1/[address] [place] [address] [facility] THORACIC 1 PHYSICIAN ASKILL SPINE W/O S MAR CONTRAST MATERIAL CT THORAX 84693 [facility] 1 PHYSICIAN RAL W/CONTRAS S T MATERIAL RADIOLOGI 42658 [facility] C 1 PHYSICIAN RAL EXAMINATI [place] [address] [facility] HEAD/BRAI 1 PHYSICIAN ASKILL N W/O S MAR CONTRAST MATERIAL RADEX 90575 [facility] ANKLE 1 PHYSICIAN RAL COMPLETE S MINIMUM 3 VIEWS RADEX 61132 [facility] SHOULDER 1 PHYSICIAN RAL COMPLETE S MINIMUM 2 VIEWS INITIAL 83175 [facility] 1 PHYSICIAN KATIE CARE/DAY S 70 MINUTES AMBULANCE A0429 [facility] 1 LINNETTE ANGLIN S FIRE DIS FIRE DIS EMERGENCY TRANSPORT GROUND A0425 [facility] 1 LINNETTE ANGLIN PER FIRE DIS FIRE DIS STATUTE MILE GROUND A0425 [facility] MILEAGE 1 FIRE DEPT FIRE DEPT PER STATUTE AMBULANCE AMBULANCE MILE AMB A0427 [facility] SERVICE 1 FIRE DEPT FIRE DEPT ALS EMERGENCY AMBULANCE AMBULANCE TRANSPORT LEVEL 1 INJECTION 39626 WILLIE RUANO G 1 LINWOOD RUANO MD [place] [address] RADIOLOGY JOPPA HEAD/BRAI 0 DEVIN N W/O ASSOCIATE CONTRAST S PSC MATERIAL THERAPEUT 46288 [facility] IC 0 [facility] TIC/DX INJECTION SUBQ/IM IM ADM 57936 [facility] PRQ ID 0 [facility] NJXS 1 VACCINE GROUND A0425 RO RO MILEAGE 0 CO CO PER AMBULANCE AMBULANCE STATUTE TAXIN TAXIN MILE RADEX 32192 RADIOLOGY JOPPA SPINE 0 DEVIN CERVICAL ASSOCIATE 4 OR 5 S PSC VIEWS AMBULANCE A0429 [place] SERVICE 0 CO CO BLS AMBULANCE AMBULANCE EMERGENCY TAXIN TAXIN TRANSPORT RADEX 01927 [place] CHARISSA, FOOT 0 MEDICAL [place] COMPLETE IMAGING MINIMUM 3 ASSOCIATE VIEWS S RADEX 14322 ANDR[facility]J ANDRZEJ ANKLE 0 [facility] COMPLETE INC INC MINIMUM 3 VIEWS RADEX 12267 RADIOLOGY HENRRY, ANKLE 0 MIGUE M COMPLETE ASSOCIATE MINIMUM 3 S PSC VIEWS INJECTION 48397 WILLIE RUANO, 0 Melissa RUANO SINGLE/ML MD WING T TRIGGER POINT 3/> MUSCLES THERAPEUT 83405 WILLIE RUANO IC 0 Melissa RUANO MD TIC/DX INJECTION SUBQ/IM INJECTION 84174 Augustus JAMES G A [facility] C [facility] NRV INJECTION 71618 WILLIE RUANO 9 Melissa RUANO MD C [facility] NRV ARTHROCEN 19111 LISA JAMES 9 Melissa RUANO ASPIR&/IN MD WING J MAJOR JT/BURSA W/O US INJECTION 23229 WILLIE RUANO, Melissa MORSE SINGLE/ML MD WING T TRIGGER POINT 3/> MUSCLES INJECTION 65054 WILLIE RUANO, DAVIDETI [facility] C [facility] NRV INJECTION 69854 Nicki JAMES G A ANESTHETI [facility] C [facility] NRV INJECTION 07913 Nicki JAMES G A SINGLE/ML MD WING T TRIGGER POINT 3/> MUSCLES NJX 28614 SHEYLA STAPLETON, ANES&/STR 9 Nguyen. NANE-MARIE Negron D JT NRV MDPLC CRV/THRC 1 LVL NJX 64540 SHEYLA STAPLETON, ANES&/STR 9 Nguyen. ANNE-MARIE Guardado JT NRV MDPLC CRV/THRC EA LVL FLUOR 63614 SHEYLA STAPLETON, NEEDLE/CA 9 E. ANNE-MARIE Negron TH MDPLC SPINE/PAR ASPINAL DX/THER ADDON FLUOR 09644 SHEYLA STAPLETON, NEEDLE/CA 9 E. ANNE-MARIE Negron TH MDPLC SPINE/PAR ASPINAL DX/THER ADDON DSTRJ 41182 HIRAL SEBASTIAN 9 Nguyen. ANNE-MARIE Negron PVRT MDPLC FACET JT NRV CRV/THRC 1 LVL DSTRJ 81574 HIRAL SEBASTIAN 9 Nguyen. ANNE-MARIE Negron PVRT MDPLC FACET JT NRV CRV/THRC EA LVL DSTRJ 49444 HIRAL SEBASTIAN 9 Nguyen. ANNE-MARIE Negron PVRT MDPLC FACET JT NRV CRV/THRC EA LVL DSTRJ 08139 HIRAL SEBASTIAN 9 Nguyen. ANNE-MARIE Negron PVRT MDPLC FACET JT NRV CRV/THRC 1 LVL INJECTION 41859 SHEYLA STAPLETON, 9 Ely Negron ANESTHETI MDPLC C [facility] NRV MODERATE 21786 JOY SEBASTIANATJ 9 Ely Negron SAME MDPLC PHYS/QHP 5/>YRS INIT 30 MIN MODERATE 46777 JOY SEBASTIANATLaura 9 Nguyen. ANNE-MARIE Negron SAME MDPLC PHYS/QHP EACH ADDL 15 MIN FLUOR 47786 SHEYLA STAPLETON, NEEDLE/CA 9 Nguyen. ANNE-MARIE KO Jamil TH MDPLC SPINE/PAR ASPINAL DX/THER ADDON FLUOR 37548 SHEYLA STAPLETON, NEEDLE/CA 9 Ely KO Jamil TH MDPLC SPINE/PAR ASPINAL DX/THER ADDON MODERATE 83535 JOY SEBASTIANATJ 9 Ely KO Jamil SAME MDPLC PHYS/QHP 5/>YRS INIT 30 MIN INJECTION 37229 SHEYLA STAPLETON 9 Ely Negron ANESTHETI MDPLC C [facility] NRV NJX 95503 ANN SEBASTIAN&/STR 9 Ely Guardado JT NRV MDPLC CRV/THRC EA LVL NJX 37005 ANN SEBASTIAN&/STR 9 Ely Guardado JT NRV MDPLC CRV/THRC 1 LVL BLOOD 71250 [facility] COUNT 9 MEDICAL G, SUE COMPLETE GROUP B AUTO&[place]BC NJX 32131 ANN RIVERA&/STR 9 Ely SanchezT NRV MDPLC CRV/THRC EA LVL MODERATE 60538 RADHA RIVERA 9 Ely Cedillo SAME MDPLC PHYS/QHP 5/>YRS INIT 30 MIN NJX 35332 ANN RIVERA&/STR 9 Ely Guardado JT NRV MDPLC CRV/THRC 1 LVL FLUOR 69024 LAMONTE RIVERA/CA 9 Ely EDGAR MDPLC SPINE/PAR ASPINAL DX/THER ADDON RADEX 10321 ANDRZEJ DONNELLY SPINE 9 [facility] THORACIC INC INC 3 VIEWS RADEX 42601 [place], SPINE 9 MEDICAL CHRISTINE Powell LUMBOSACR IMAGING AL ASSOCIATE MINIMUM 4 S VIEWS DSTRJ 91518 HIRAL SEBASTIAN 8 Ely Negron PVRT MDPLC FACET JT NRV CRV/THRC 1 LVL DSTRJ 97331 HIRAL SEBASTIAN 8 Ely Negron PVRT MDPLC FACET JT NRV CRV/THRC EA LVL FLUOR 18078 SHEYLA STAPLETON, NEEDLE/CA 8 Ely Negron TH MDPLC SPINE/PAR ASPINAL DX/THER ADDON BLOOD 24327 [facility]AUTO MEDICALCE MEDICALCE [place] [address] [facility] THYROID 8 [facility] STIMULATI NG MEDICALCE MEDICAL[place] [address] [facility] FREE [facility] THYROXINE MEDICALCE [place] NJX [address]69 VÍCTOR SEBASTIANS&/STR 8 Ely Guardado JT NRV MDPLC CRV/THRC EA LVL NJX 07301 VÍCTOR SEBASTIANS&/STR 8 Ely Guardado JT NRV MDPLC CRV/THRC 1 LVL FLUOR 47495 SHEYLA STAPLETON NEEDLE/CA 8 Ely Negron TH MDPLC SPINE/PAR ASPINAL DX/THER ADDON FLUOR 46805 SHEYLA XIE NEEDLE/CA 8 Ely EDGAR MDPLC SPINE/PAR ASPINAL DX/THER ADDON NJX 29692 ANN RIVERA&/STR 8 Ely SanchezT NRV MDPLC CRV/THRC 1 LVL NJX 34688 ANN RIVERA&/STR 8 Ely Guardado JT NRV MDPLC CRV/THRC EA LVL DSTRJ 74825 HIRAL RIVERA 8 Ely CARRION Nguyen PVRT MDPLC FACET JT NRV CRV/THRC EA LVL DSTRJ 49823 HIRAL RIVERA 8 NguyenNichole ANNE-MARIE CARRION Nguyen PVRT MDPLC FACET JT NRV CRV/THRC 1 LVL FLUOR 59434 SHEYAL XIE NEEDLE/CA 8 NguyenNichole ANNE-MARIE CARRION E TH MDPLC SPINE/PAR ASPINAL DX/THER ADDON RADIOLOGI 11915 [facility] C EXAM 8 [facility] CHEST 2 EAST EAST VIEWS FRONTAL&L [place]TERAL NJX 50180 SHEYLA STAPLETON, ANES&/STR 8 Ely Guardado JT NRV MDPLC CRV/THRC 1 LVL NJX 35864 SHEYLA STAPLETON, ANES&/STR 8 Ely Guardado JT NRV MDPLC CRV/THRC EA LVL FLUOR 50576 SHEYLA SAMPSONON, NEEDLE/CA 8 Ely KO T TH MDPLC SPINE/PAR ASPINAL DX/THER ADDON FLUOR 53657 SHEYLA STAPLETON, NEEDLE/CA 8 NguyenNichole ANNE-MARIE KO T TH MDPLC SPINE/PAR ASPINAL DX/THER [place]ON NJX 32473 SHEYLA SAMPSONON, ANES&/STR 8 Ely Guardado JT NRV MDPLC CRV/THRC [place] LVL NJX 65164 SHEYLA STAPLETON, ANES&/STR 8 Ely Guardado JT NRV MDPLC CRV/THRC 1 LVL RADEX 55564 [place] BAL[place], NASAL 8 MEDICAL CHRISTINE P BONES IMAGING COMPLETE ASSOCIATE MINIMUM 3 S VIEWS COLLECTIO 48622 Larry DRUMMOND VENOUS 8 MEDICAL VIRAL B[place] [address] THYROID 8 ARLENE JACOBS STIMULATI NG MEDICALCE MEDICALCE HORMONE NTER NTER TSH RADEX 13734 [place], SHOULDER 8 MEDICAL CHRITSINE P COMPLETE IMAGING MINIMUM 2 ASSOCIATE VIEWS S ORTHOPANT 99068 GRZEGORZ LEDESMA, OGRAM 8 CARMEN Powell IMAGING ASSOCIATE S RADEX 68679 ANDRZEJ DONNELLY SPINE 8 [facility] CERVICAL INC INC 6 OR MORE VIEWS Encounters Encounter Start End Date Code Location Performer Type Date OFFICE 23452 [facility] 7 7 A[place]ENE T VISIT 15 PHYSICIAN MINUTES [facility]OSPITAL [facility] - 7 7 [facility] T EMERGENCY 39444 THE 7 7 [facility] T VISIT LOW/MODER SEVERITY OFFICE 63867 [facility] 7 7 ARLENE T VISIT 25 PHYSICIAN MINUTES OFFICE 30376 [facility] 6 6 ARLENE ALEX T VISIT 15 PHYSICIAN MINUTES OFFICE 00675 [facility] 6 6 ARLENE T VISIT 25 PHYSICIAN MINUTES S EMERGENCY 71059 TAMMI MCCRAY 6 6 EMERGENCY [facility] VISIT PHYSICIAN MODERATE S SEVERITY [facility]OSPITAL ST - 5 5 [facility] HIMA EMERGENCY 79513 [facility] 5 5 ARLENE [facility] VISIT MODERATE SEVERITY [facility] - 5 5 [facility] 39437 . 5 5 ARLENE [facility] VISIT MODERATE SEVERITY HOSPITAL ST[facility] 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 - 3 [facility] - 3 3 [facility] ST - 3 3 [facility] OFFICE 18991 LARYUSSLER SCHUSSLER OUTPATIEN 3 3 THO THO T VISIT [address] - 3 3 [facility] ST - 3 3 [facility] OFFICE 40256 STEPHANIE GEORGELER OUTPATIEN 3 3 THO THO T VISIT [address] - 3 3 [facility] OFF[facility] 18767 [facility] 3 3 DI MAR MAURICIO MAR T VISIT 25 MINUTES OFFICE 97367 GRUNKEMEY GR[facility]EY [facility] 3 3 ER MAT ER [facility] 45 MINUTES HOSPITAL THE - 2 2 [facility] - 2 2 [facility] - 2 2 [facility] 38910 [facility] 2 2 [facility] T VISIT MODERATE SEVERITY OFFICE 08900 BINDU G BINDU G OUTPATIEN 2 2 T VISIT 25 MINUTES OFFICE 89734 BINDU G BINDU G OUTPATIEN 1 1 T VISIT 25 MINUTES OFFICE 47576 [facility] 1 Y T VISIT HOSP[facility] 10 [facility] - 1 [facility] OFFICE 34581 BINDU Torres OUTPATIEN 1 1 T VISIT 15 MINUTES EMERGENCY 80991 [facility] 1 1 PHYSICIAN [facility]USA [facility] S T VISIT HIGH/URGE NT SEVERITY OFFICE 27701 [facility] 1 1 Y T VISIT HOSPITAL 10 [facility] 39475 EMERGENCY [facility] 1 1 CARE BETTINA [facility] PHYS T VISIT [facility] HIGH/URGE NT SEVERITY OFFICE 67771 WILLIE Torres [facility] 1 1 Jamil RUANO VISIT MD WING 15 MINUTES HOSPITAL UNIVERSIT - 1 1 Y INPATIENT HOSPITAL INC. EMERGENCY 06803 EMERGENCY [facility] DEPT 1 1 CARE VISIT PHYS [facility] SEVERITY& THREAT [facility] ST - 0 0 [facility] EMERG[facility] 28031 [facility] ADAM 0 0 [facility] T VISIT HIGH/URGE NT SEVERITY OFFICE 45829 WILLIE Torres OUTPATIEN 0 0 Jamil RUANO VISIT MD WING 25 MINUTES OFFICE 79919 ZAIDA JAMES 0 0 Melissa RUANO T VISIT MD WING 15 MINUTES HOSPITAL ANDRZEJ - 0 0 [facility] T OFFICE 77950 ZAIDA JAMES 0 0 Melissa RUANO T VISIT MD WING [address] - 0 0 [facility] T EMERGENCY 71473 [facility], 0 0 ARLENE Guardado [facility] MED CTR T VISIT HIGH/URGE NT SEVERITY OFFICE 80902 WILLIE RUANO OUTPATIEN 9 9 Melissa RUANO A T VISIT MD WING 15 MINUTES OFFICE 44409 WILLIE Torres OUTPATIEN 9 9 BINDU, T VISIT [facility] 25 MINUTES OFFICE 19532 WILLIE RUANO OUTPATIEN 9 9 BINDU G A T VISIT [facility] 25 MINUTES OFFICE 68503 [facility] OUTPATIEN 9 9 MEDICAL GSUE T VISIT GROUP B 25 MINUTES OFFICE 43399 [facility] DIANELYS OUTPATI[facility] 9 9 MEDICAL G, SUE T VISIT GROUP B 15 MINUTES HOSPITAL ANDRZEJ - 9 9 [facility] OUTPATIEN INC T OFFICE 70044 ZAIDA SEBASTIAN 9 9 Ely ANNE-MARIE KO T T VISIT MDPLC [address] - 8 8 [place] CERDA T MEDICALCE NTER OFFICE 23558 [facility] 8 8 MEDICAL SUE Torres T VISIT GROUP B 25 MINUTES HOSPITAL [facility] 8 [facility] 99133 ZAIDA SEBASTIAN 8 8 Ely ANNE-MARIE Negron T NEW 30 MDPLC MINUTES EMERGENCY 53063 ANDRZEJ 8 8 [facility] INC T VISIT MODERATE SEVERITY HOSPITAL ANDRZEJ - 8 8 [facility] OUTPATIEN INC T EMERGENCY 99109 ANDRZEJ VALENTINO, 8 8 [facility] T VISIT PROF SERV LOW/MODER SEVERITY OFFICE 24578 [facility] ZAIDA GERBER 8 8 MEDICAL VIRAL T VISIT GROUP 15 MINUTES OFFICE 49698 [facility] ZAIDA [facility] 8 8 MEDICAL VIRAL T VISIT GROUP 25 MINUTES HOSPITAL - 8 8 [facility] 8 [facility] OUTPATIEN INC T OFFICE 87281 [facility] ZAIDA [facility]ER[facility] 8 8 MEDICAL VIRAL T VISIT GROUP 15 MINUTES HOSPITAL [facility] - 8 8 [facility] OUTPATIEN INC T OFFICE 06088 [facility] ZAIDA GERBER 8 8 MEDICAL VIRAL T VISIT GROUP 25 MINUTES
--- OUTSIDE RECORDS SUMMARY | 2016-07-06 16:18 | External Medical Summary Rpt ---
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 27167 WILLIE RUANO IC 0 Melissa RUANO MD TIC/DX INJECTION SUBQ/IM INJECTION 63084 Augustus JAMES G A [facility] NRV INJECTION 24359 WILLIE RUANO 9 Melissa RUANO MD C [facility] NRV ARTHROCEN 46144 LISA JAMES 9 Melissa RUANO ASPIR&/IN MD WING J MAJOR JT/BURSA W/O US INJECTION 36424 WILLIE RUANO, Melissa MORSE SINGLE/ML MD WING T TRIGGER POINT 3/> MUSCLES INJECTION 26548 WILLIE RUANO, DAVIDETI [facility] C [facility] NRV INJECTION 13497 Nicki JAMES G A ANESTHETI [facility] C [facility] NRV INJECTION 70650 Nicki JAMES G A SINGLE/ML MD WING T TRIGGER POINT 3/> MUSCLES NJX 93959 SHEYLA STAPLETON, ANES&/STR 9 Nguyen. ANNE-MARIE Negron D JT NRV MDPLC CRV/THRC 1 LVL NJX 67041 SHEYLA STAPLETON, ANES&/STR 9 Nguyen. ANNE-MARIE Guardado JT NRV MDPLC CRV/THRC EA LVL FLUOR 34158 SHEYLA STAPLETON, NEEDLE/CA 9 E. ANNE-MARIE Negron TH MDPLC SPINE/PAR ASPINAL DX/THER ADDON FLUOR 03741 SHEYLA STAPLETON, NEEDLE/CA 9 E. ANNE-MARIE Negron TH MDPLC SPINE/PAR ASPINAL DX/THER ADDON DSTRJ 60550 HIRAL SEBASTIAN 9 Nguyen. ANN-EMARIE Negron PVRT MDPLC FACET JT NRV CRV/THRC 1 LVL DSTRJ 03383 HIRAL SEBASTIAN 9 Nguyen. ANNE-MARIE Negron PVRT MDPLC FACET JT NRV CRV/THRC EA LVL DSTRJ 25108 HIRAL SEBASTIAN 9 Nguyen. ANNE-MARIE Negron PVRT MDPLC FACET JT NRV CRV/THRC EA LVL DSTRJ 24525 HIRAL SEBASTIAN 9 Nguyen. ANNE-MARIE Negron PVRT MDPLC FACET JT NRV CRV/THRC 1 LVL INJECTION 01417 SHEYLA STAPLETON, 9 Ely Negron ANESTHETI MDPLC C [facility] NRV MODERATE 57895 JOY SEBASTIANATJ 9 Ely Negron SAME MDPLC PHYS/QHP 5/>YRS INIT 30 MIN MODERATE 95284 JOY SEBASTIANATLaura 9 Nguyen. ANNE-MARIE Negron SAME MDPLC PHYS/QHP EACH ADDL 15 MIN FLUOR 27579 SHEYLA STAPLETON, NEEDLE/CA 9 Nguyen. ANNE-MARIE KO Jamil TH MDPLC SPINE/PAR ASPINAL DX/THER ADDON FLUOR 15946 SHEYLA STAPLETON, NEEDLE/CA 9 Ely KO Jamil TH MDPLC SPINE/PAR ASPINAL DX/THER ADDON MODERATE 85846 JOY SEBASTIANATJ 9 Ely KO Jamil SAME MDPLC PHYS/QHP 5/>YRS INIT 30 MIN INJECTION 08190 SHEYLA STAPLETON 9 Ely Negron ANESTHETI MDPLC C [facility] [place]X 70923 ANN SEBASTIAN&/STR 9 Ely Guardado JT NRV MDPLC CRV/THRC EA LVL NJX 11767 ANN SEBASTIAN&/STR 9 Ely Guardado JT NRV MDPLC CRV/THRC 1 LVL BLOOD 43620 [facility] COUNT 9 MEDICAL G, SUE COMPLETE GROUP B AUTO&[place]IFRNTL WBC NJX 87037 ANN RIVERA&/STR 9 Ely SanchezT NRV MDPLC CRV/THRC EA LVL MODERATE 21994 RADHA RIVERA 9 Ely Cedillo SAME MDPLC PHYS/QHP 5/>YRS INIT 30 MIN NJX 36181 ANN RIVERA&/STR 9 Ely Guardado JT NRV MDPLC CRV/THRC 1 LVL FLUOR 84324 LAMONTE RIVERA/CA 9 Ely EDGAR MDPLC SPINE/PAR ASPINAL DX/THER ADDON RADEX 02617 ANDRZEJ DONNELLY SPINE 9 [facility] THORACIC INC INC 3 VIEWS RADEX 67839 [place] BALTAZAR, SPINE 9 MEDICAL CHRISTINE Powell LUMBOSACR IMAGING AL ASSOCIATE MINIMUM 4 S VIEWS DSTRJ 28834 HIRAL SEBASTIAN 8 Ely Negron PVRT MDPLC FACET JT NRV CRV/THRC 1 LVL DSTRJ 55389 HIRAL SEBASTIAN 8 Ely Negron PVRT MDPLC FACET JT NRV CRV/THRC EA LVL FLUOR 42236 SHEYLA STAPLETON, NEEDLE/CA 8 Ely Negron TH MDPLC SPINE/PAR ASPINAL DX/THER ADDON BLOOD 80786 [facility] COUNT 8 [facility] COMPLETE AUTO&AUTO MEDICALCE MEDICAL[place] [address] [facility] THYROID 8 [facility] STIMULATI NG MEDICALCE MEDICAL[place] [address] [facility] FREE 8 [facility] THYROXINE MEDICALCE MEDICALCE [place]TER [place]TER NJX 04330 VÍCTOR SEBASTIANS&/STR 8 Ely Guardado JT NRV MDPLC CRV/THRC EA LVL NJX 87707 VÍCTOR SEBASTIANS&/STR 8 Ely Guardado JT NRV MDPLC CRV/THRC 1 LVL FLUOR 58072 SHEYLA STAPLETON NEEDLE/CA 8 Ely Negron TH MDPLC SPINE/PAR ASPINAL DX/THER ADDON FLUOR 22756 SHEYLA XIE NEEDLE/CA 8 Ely EDGAR MDPLC SPINE/PAR ASPINAL DX/THER ADDON NJX 61486 ANN RIVERA&/STR 8 Ely SanchezT NRV MDPLC CRV/THRC 1 LVL NJX 99292 ANN RIVERA&/STR 8 Ely Guardado JT NRV MDPLC CRV/THRC EA LVL DSTRJ 10974 HIRAL RIVERA 8 Ely CARRION Nguyen PVRT MDPLC FACET JT NRV CRV/THRC EA LVL DSTRJ 01670 HIRAL RIVERA 8 NguyenNichole ANNE-MARIE CARRION Nguyen PVRT MDPLC FACET JT NRV CRV/THRC 1 LVL FLUOR 49503 SHEYLA XIE NEEDLE/CA 8 NguyenNichole ANNE-MARIE CARRION E TH MDPLC SPINE/PAR ASPINAL DX/THER ADDON RADIOLOGI [address] [facility] C EXAM 8 [facility] CHEST 2 EAST EAST VIEWS FRONTAL&[place] NJX 26867 SHEYLA STAPLETON, ANES&/STR 8 Ely Guardado JT NRV MDPLC CRV/THRC 1 LVL NJX 41539 SHEYLA STAPLETON, ANES&/STR 8 Ely Guardado JT NRV MDPLC CRV/THRC EA LVL FLUOR 76936 SHEYLA SAMPSONON, NEEDLE/CA 8 Ely KO T TH MDPLC SPINE/PAR ASPINAL DX/THER ADDON FLUOR 92776 SHEYLA STAPLETON, NEEDLE/CA 8 NguyenNichole ANNE-MARIE KO T TH MDPLC SPINE/PAR ASPINAL DX/[place] NJX 86261 SHEYLA SAMPSONON, ANES&/STR 8 Ely Guardado JT NRV MDPLC CRV/THRC EA LVL NJX 05798 SHEYLA STAPLETON, ANES&/STR 8 Ely Guardado JT NRV MDPLC CRV/THRC 1 LVL RADEX 02485 [place] BALTAZAR, NASAL 8 MEDICAL CHRISTINE P BONES IMAGING COMPLETE ASSOCIATE MINIMUM 3 S VIEWS COLLECTIO 16442 Larry DRUMMOND VENOUS 8 MEDICAL VIR[place] B[place] [address] THYROID 8 [place] JACOBS STIMULATI NG MEDICALCE MEDICALCE HORMONE NTER NTER TSH RADEX 48811 [place] BALTAZAR, SHOULDER 8 MEDICAL CHRISTINE P COMPLETE IMAGING MINIMUM 2 ASSOCIATE VIEWS S ORTHOPANT 56177 GRZEGORZ LEDESMA, OGRAM 8 CARMEN Powell IMAGING ASSOCIATE S RADEX 54220 ANDRZEJ DONNELLY SPINE 8 [facility] CERVICAL INC INC 6 OR MORE VIEWS Encounters Encounter Start End Date Code Location Performer Type Date OFFICE 12830 [facility] 7 7 [place] T VISIT 15 PHYSICIAN MINUTES [facility]OSPITAL [facility] - 7 7 [facility] T EMERGENCY 08053 THE 7 7 [facility] T VISIT LOW/MODER SEVERITY OFFICE 83152 [facility] 7 7 [place] T VISIT 25 PHYSICIAN MINUTES OFFICE 11562 [facility] 6 6 [place] ALEX T VISIT 15 PHYSICIAN MINUTES OFFICE 61164 [facility] 6 6 [place] T VISIT 25 PHYSICIAN MINUTES S EMERGENCY 57567 TAMMI MCCRAY 6 6 EMERGENCY [facility] VISIT PHYSICIAN MODERATE S SEVERITY [facility]PITAL ST - 5 5 [place] [facility] 99916 [facility] 5 5 [place] [facility] VISIT MODERATE SEVERITY [facility] - 5 5 [facility] [facility] . 5 5 [place] [facility] VISIT MODERATE SEVERITY [facility] - 5 5 [place] [facility] - 5 5 [place] [facility] T SMOCKER OFFICE 09869 SHAILA COLLINS [facility] 5 5 H T NEW 30 ORTHOPAE MINUTES EMERGENCY 95853 [facility]BERT PRICE 3 3 MANUEL MANUEL [facility] T VISIT MODERATE SEVERITY OFFICE 09197 STEPHANIE SCHUSSLER OUTPATIEN 3 3 THO THO T VISIT [address] [facility] [address] [facility] [address] - 3 3 [facility] OFFICE 37535 LARYUSSLER SCHUSSLER OUTPATIEN 3 3 THO THO T VISIT [address] - [address] [facility] [address] - 3 3 [facility] OFFICE 44383 STEPHANIE GEORGELER OUTPATIEN 3 3 THO THO T VISIT [address] [facility] 22053 [place] [facility] 3 3 DI MAR MAURICIO MAR T VISIT 25 MINUTES OFFICE 99775 [facility] 3 3 ER MAT ER MAT [facility] 45 MINUTES HOSPITAL THE - 2 2 [facility] - 2 2 [facility]ENC[facility] [address] [facility] MAN[facility]EL 2 [facility] MODERATE SEVERITY OFFICE 02460 B[facility]U G BINDU G OUTPATIEN 2 2 T VISIT 25 MINUTES OFFICE 00267 BINDU G BINDU G OUTPATIEN 1 1 T VISIT 25 MINUTES OFFICE 53441 [facility] 1 1 Y T VISIT HOSPITAL 10 INC. [facility] - [facility] OFF[facility] 08669 BINDU Torres OUTPATIEN 1 1 T VISIT 15 MINUTES EMERGENCY 16572 [facility] 1 1 PHYSICIAN MUSA [facility] S T VISIT HIGH/URGE NT SEVERITY OFFICE 94680 [facility] 1 1 Y T VISIT HOSPITAL 10 INC. [facility]ENC[facility] 02208 [facility] 1 1 CARE BETTINA [facility] PHYS T VISIT [facility] HIGH/URGE NT SEVERITY OFFICE 69548 WILLIE [facility] 1 1 Jamil RUANO VISIT MD WING 15 MINUTES HOSPITAL UNIVERSIT - 1 1 Y INPATIENT HOSPITAL INC. EMERGENCY 93035 EMER[facility]ENCY [facility] DEPT 1 1 CARE VISIT PHYS [facility]IGH [facility] SEVERITY& THREAT [facility] ST - 0 0 [facility] EMERGENCY 81176 [facility] ADAM 0 0 [facility] T VISIT HIGH/URGE NT SEVERITY OFFICE 85620 WILLIE Torres OUTPATIEN 0 0 Jamil RUANO VISIT MD WING 25 MINUTES OFFICE 43653 ZAIDA JAMES 0 0 Melissa RUANO T VISIT MD WING 15 MINUTES HOSPITAL ANDRZEJ - 0 0 [facility] T OFFICE 13619 ZAIDA JAMES 0 0 Melissa RUANO T VISIT MD WING [address] - 0 0 [facility] T EMERGENCY 12012 [facility], 0 0 [place] Guardado [facility] MED CTR T VISIT HIGH/URGE NT SEVERITY OFFICE 49939 WILLIE RUANO OUTPATIEN 9 9 Melissa RUANO A T VISIT MD WING 15 MINUTES OFFICE 50521 WILLIE Torres OUTPATIEN 9 9 BINDU, T VISIT [facility] 25 MINUTES OFFICE 48966 WILLIE RUANO OUTPATIEN 9 9 BINDU G A T VISIT [facility] 25 MINUTES OFFICE 95307 [facility] STERNEBER OUTPATIEN 9 9 MEDICAL GSUE T VISIT GROUP B 25 MINUTES OFFICE 40391 [facility] DIANELYS OUTPATI[facility] 9 9 MEDICAL G, SUE T VISIT GROUP B 15 MINUTES HOSPITAL ANDRZEJ - 9 9 [facility] OUTPATIEN INC T OFFICE 73315 ZAIDA SEBASTIAN 9 9 Ely ANNE-MARIE KO T T VISIT MDPLC [address] - 8 8 [place] CERDA T MEDICALCE NTER OFFICE 18925 [facility] 8 8 MEDICAL SUE Torres T VISIT GROUP B [address] [facility] 8 8 [facility] 41673 ZAIDA SEBASTIAN 8 8 Ely ANNE-MARIE Negron T NEW 30 MDPLC MINUTES EMERGENCY 02508 ANDRZEJ 8 8 [facility] INC T VISIT MODERATE SEVERITY HOSPITAL ANDRZEJ - 8 8 [facility] OUTPATIEN INC T EMERGENCY 50270 ANDRZEJ VALENTINO, 8 8 [facility] T VISIT PROF SERV LOW/MODER SEVERITY OFFICE 45236 [facility] ZAIDA GERBER 8 8 MEDICAL VIRAL T VISIT GROUP 15 MINUTES OFFICE 38192 [facility] ZAIDA [facility]ER[facility] 8 8 MEDICAL VIRAL T VISIT GROUP 25 MINUTES HOSPITAL - 8 8 [place] [facility] OUTPATI[facility] INC T OFFICE 11913 [facility] ZAIDA [facility]ER[facility] 8 8 MEDICAL VIRAL T VISIT GROUP 15 MINUTES HOSPITAL JOAQUIN - 8 8 [facility] OUTPATIEN INC T OFFICE 91058 [facility] ZAIDA GERBER 8 8 MEDICAL VIRAL T VISIT GROUP 25 MINUTES
--- OUTSIDE RECORDS SUMMARY | 2016-07-06 16:28 | External Medical Summary Rpt ---
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 BE OL 34 08 08 MA RG E [address] 0 #5 EV MG 43 EN 7 B TA BL ET CE 00 12 12 00 [address] Ac PH 09 -0 -1 .0 S 74 ER ti AL 33 8- 8- 00 PH 47 NE ve EX 14 20 20 AR BE IN 50 08 08 MA RG [address] 0 #5 EV MG 43 EN 7 B CA PS UL E DI 00 12 12 00 [address] Ac AZ 37 -0 -1 .0 S 74 ER ti EP 80 8- 8- 00 PH 48 NE ve AM 47 20 20 AR BE 70 08 08 MA RG [address] MG #5 EV 43 EN TA 7 B BL ET VA 00 09 12 02 [address] Ac LT 17 -0 -0 .0 S 08 ER ti RE 30 9- 4- 00 PH 78 NE ve X 93 20 20 AR BE 50 30 08 08 MA RG [address] #5 EV CA [address] 7 B ET LE 00 09 11 02 [address] Ac VO 37 -0 -2 .0 S 95 ER ti TH 81 9- 0- 00 PH 24 NE ve YR 80 20 20 AR BE OX 50 08 08 MA RG IN [address] 75 #5 EV 43 EN MC 7 B G TA BL ET DI 00 11 11 00 [address] Ac AZ 37 -0 -2 .0 S 43 ER ti EP 80 6- 0- 00 PH 78 NE ve AM 47 20 20 AR BE 70 08 08 MA RG [address] MG #5 EV 43 EN TA 7 B BL ET FL 00 09 11 02 30 [...] MG CA PS UL E DI 00 09 10 01 [address] Ac AZ 37 -0 -2 .0 S 84 ER ti EP 80 9- 3- 00 PH 25 NE ve AM 47 20 20 AR BE 70 08 08 MA RG [address] MG #5 EV 43 EN TA 7 B BL ET VA 00 09 10 00 [address] Ac LT 17 -0 -0 .0 S 08 ER ti RE 30 9- 9- 00 PH 78 NE ve X 93 20 20 AR BE 50 30 08 08 MA RG [address] #5 EV CA [address] 7 B ET LE 00 09 10 00 [address] Ac VO 37 -0 -0 .0 S 95 ER ti TH 81 9- 9- 00 PH 24 NE ve YR 80 20 20 AR BE OX 50 08 08 MA RG IN [address] 75 #5 EV 43 EN MC 7 B G TA BL ET FL 00 09 10 00 [address] Ac UO 09 -2 -0 .0 S 95 ER ti XE 37 0- 9- 00 PH 25 NE ve TI 19 20 20 AR BE NE 85 08 08 MA RG [address] L #5 EV 40 43 EN 7 B MG CA PS UL E DI 00 09 09 00 90 30 [...] [address] ET A FL 00 01 07 03 30 30 CV 44 QU Ac UO 09 -2 -0 .0 S 67 AT ti XE 37 9- 3- 00 PH 34 KE ve TI 19 20 20 AR ME NE 85 08 08 MA YE 6 CY R HC BR L #5 AD [address] MG A CA PS UL E DI 00 06 07 00 60 30 [...] MG #5 43 TA 7 BL ET FL 00 01 05 02 [...] #5 MG 43 7 TA BL ET AZ 59 05 05 00 6. 1 CV 45 No Ac IT 76 -0 -2 00 S 69 t ti HR 23 6- 2- 0 PH 17 Av ve OM 06 20 20 AR ai YC 00 08 08 MA la IN 1 CY bl e 25 #5 0 43 MG 7 TA BL ET VA 00 04 05 00 30 30 CV 45 No Ac LT 17 -2 -0 .0 S 53 t ti RE 30 1- 8- 00 PH 96 Av ve X 93 20 20 AR ai 50 30 08 08 MA la 0 8 CY bl MG e #[address] 7 ET 00 04 05 00 55 28 SA 69 No Ac 40 -2 -0 .0 VE 32 t ti 60 9- 8- 00 66 Av ve 58 20 20 DI ai 20 08 08 SC la 1 OU bl NT e DR UG S DI 00 04 05 00 80 27 SA 69 No Ac AZ 59 -2 -0 .0 VE 32 t ti EP 15 9- 8- 00 65 Av ve AM 62 20 20 DI ai 01 08 08 SC la 10 0 OU bl NT e MG DR TA UG BL S ET LE 00 04 05 00 30 30 CV 45 No Ac VO 37 -3 -0 .0 S 63 t ti TH 81 0- 8- 00 PH 26 Av ve YR 80 20 20 AR ai OX 50 08 08 MA la IN 1 CY bl E e 75 #5 43 MC 7 G TA BL ET LE 00 01 04 02 30 30 CV 44 No Ac VO 37 -0 -2 .0 S 65 t ti TH 81 7- 4- 00 PH 24 Av ve YR 80 20 20 AR ai OX 90 08 08 MA la IN 1 CY bl E e 10 #5 0 43 MC 7 G TA BL ET 00 04 04 00 55 28 SA 69 No Ac 40 -0 -1 .0 VE 11 t ti 60 3- 0- 00 18 Av ve 58 20 20 DI ai 20 08 08 SC la 1 OU bl NT e DR UG S DI 00 04 04 00 90 30 SA 69 No Ac AZ 59 -0 -1 .0 VE 11 t ti EP 15 3- 0- 00 19 Av ve AM 62 20 20 DI ai 01 08 08 SC la 10 0 OU bl NT e MG DR TA UG BL S ET VA 00 03 04 00 30 30 [...] LO e TI #5 ON 43 7 FL 00 01 03 00 30 30 CV 44 No Ac UO 09 -2 -2 .0 S 67 t ti XE 37 9- 6- 00 PH 34 Av ve TI 19 20 20 AR ai NE 85 08 08 MA la 6 CY bl HC e L #5 40 43 7 MG CA PS UL E LE 00 01 03 00 30 30 CV 44 No Ac VO 37 -0 -2 .0 S 65 t ti TH 81 7- 6- 00 PH 24 Av ve YR 80 20 20 AR ai OX 90 08 08 MA la IN 1 CY bl E e 10 #5 0 43 MC 7 G TA BL ET DI 00 02 03 00 90 30 [...] 0 43 MG 7 TA BL ET VA 00 03 00 30 30 CV 44 No Ac LT 17 -2 -2 .0 S 60 t ti RE 30 2- 5- 00 PH 59 Av ve X 93 20 20 AR ai 50 30 08 08 MA la 0 8 CY bl MG e #[address] 7 ET Immunization Name Date Route CVX Reacti Commen Provid Is Given on t er Refuse d TDAP ST. No VACCIN 2014 ELIZAB E 7 ETH YRS/> ERICK IM Procedures Procedure DOS Code Location Performer Comment MAMMOGRAP [address] HY 5 ARLENE ARLENE BILATERAL FT FT [facility] US BREAST 12373 RADIOLOGY REINOSO UNI REAL 5 NAHOMY TIME ASSOCIATE WITH S OF [facility] IMAGE LIMITED SIMPLE [address] REPAIR 5 ARLENEHERVE JACOBS SCALP/NEC ERICK ERICK K/AX/TRACY T/TRUNK 2.5CM/< TDAP 7[address] [facility] VACCINE 7 5 ARLENETRISHA JACOBS YRS/> IM ERICK ERICK INCISION [address] & 5 ARLENE ARLENE DRAINAGE ERICK ERICK ABSCESS SIMPLE/SI NGLE NEEDLE [address] ST ST EMG EA 5 ARLENE JACOBS EXTREMTY MED CTR MED CTR W/PARASPI IN HOME CAREGIVER ST IN HOME CAREGIVER ST NL AREA COMPLETE NERVE 22894 ST [facility] DEVIN CONDUCTIO 5 ARLENE N STUDIES 9-10 PHYSICIAN STUDIES S WRIST L3908 [facility] HAND 5 LTH LTH ORTHOSIS ORTHOPAED ORTHOPAED EXT IC CTR IC CTR CONTROL COCK-UP PREFAB NONEMERGE A0100 LKLP CAC BENNETTS NCY 3 INC TRANSPORT TRANSPORT REGION 9 [facility] ATION; L TAXI COLLECTIO 32298 [facility] N VENOUS 3 [facility] BLOOD ERICK ERICK VENIPUNCT URE BLOOD 40542 [facility]. COUNT 3 [facility] COMPLETE ERICK ERICK AUTO&AUTO DIFRNTL WBC BLOOD 59973 [facility]. COUNT 3 [facility] COMPLETE ERICK ERICK AUTO&AUTO DIFRNTL WBC COLLECTIO 97225 [facility]. N VENOUS 3 [facility] BLOOD ERICK ERICK VENIPUNCT URE IADNA 28634 [facility]. HEPATITIS 3 [facility] C QUANT ERICK ERICK & REVERSE TRANSCRIP TION HEPATIC 96138 [facility]. FUNCTION 3 [facility] PANEL ERICK ERICK NONEMERGE A0100 LKLP CAC BENNETTS NCY 3 INC [facility]SPORT [facility]; L TAXI HEPATIC 71737 [facility] FUNCTION 3 [facility] COLLECTIO 56904 [facility] N VENOUS 3 [facility] 2001 V[facility]CT CENTER CENTER URE BLOOD 26751 [facility] COUNT 3 [facility] 2001 AUTO&AUTO CENTER CENTER DIFRNTL WBC BLOOD 06136 [facility]. COUNT 3 ARLENEROSEMARIE LEYTH COMPLETE ERICK ERICK AUTO&AUTO DIFRNTL WBC COLLECTIO [address] [facility] [address] N VENOUS 3 ARLENEROSEMARIE JOLLEYBETH BLOOD ERICK ERICK VENIPUNCT URE IADNA 94350 [facility]. HEPATITIS 3 ARLENE ARLENE C QUANT ERICK ERICK & REVERSE TRANSCRIP TION HEPATIC 28087 [facility]. FUNCTION 3 ARLENE HUGGINSZABETH PANEL ERICK ERICK HEPATIC 48026 [facility] FUNCTION 3 ARLENE ARLENE PANEL FT FT HIMA HIMA BLOOD 87264 [facility] COUNT 3 ARLENE ARLENE COMPLETE FT FT AUTO&AUTO [facility] DIFRNTL WBC COLLECTIO 11995 [facility]) N VENOUS 3 ARLENE HUGGINSZABETH BLOOD FT FT VENIPUNCT HIMA HIMA URE NONEMERGE A0100 LKLP CAC GADIEL NCY 3 [facility] TRANSPORT TRANSPORT REGION 9 ATION CO ATION; L TAXI COLLECTIO 43425 [facility] N VENOUS 3 ARLENE ARLENE BLOOD FT FT VENIPUNCT HIMA RABAGO URE IADNA 30126 [facility]) HEPATITIS 3 ARLENE ARLENE C QUANT FT FT & REVERSE HIMA HIMA TRANSCRIP TION NFCT AGNT 90875 [facility] GENOTYP 3 ARLENE ARLENE NUCLEIC FT FT ACID HIMA HIMA HEPATITIS C VIRUS LOCM Q9965 TOM SANTOS 100-199 3 KIR KIR MG/ML IODINE CONCENTRA TION PER ML FLUOR 90851 TOM SANTOS NEEDLE/CA 3 KIR KIR TH SPINE/PAR ASPINAL DX/[place] NJX 34558 DOPIPO DOERGER DX/THER 3 KIR KIR SBST EPIDURAL/ SUBRACH CERV/THOR ACIC INJ J0702 DOERGER DOERGER BETAMETHA 3 KIR KIR SONE ACETATE & PHOSPHATE 3 MG RADEX 12533 GRUNKEMEY GRUNKEMEY SPINE 3 ER MAT ER MAT CERVICAL 2 OR 3 VIEWS RADEX 36494 GRUNKEMEY GRUNKEMEY FOREARM 2 3 ER MAT ER MAT VIEWS RADIOLOGI 24269 GRUNKEMEY GRUNKEMEY C 3 ER MAT ER MAT EXAMINATI ON TIBIA & FIBUL[place] 2 [place] [address] [facility] THYROID [address] [place] [address] NG HORMONE TSH IADNA [address] [facility] HEPATITIS [address] [place] [address] & [place] [address] [facility] FREE [address] [place] [address] COLLECTIO 68213 THE THE N VENOUS [address] [place] [address] VENIPUNCT URE COMPREHEN 12448 THE THE SIVE [address] [place] [address] PANEL NONEMERGE A0100 LKLP BENNETTS NCY 2 [facility] TRANSPORT TRANSPORT ACTION ATION CO ATION; L TAXI NONEMERGE A0100 LKLP BENNETTS NCY 2 COMMUNITY TRANSPORT TRANSPORT ACTION [place]; [place] [address] NAZARIO DIOP ABDOMINAL 2 NAL JAM REAL RADIOLOGY TIME INC. W/IMAGE LIMITED MRI 00440 RADIOLOGY WILL SPINAL 2 MAR CANAL ASSOCIATE CERVICAL S OF [facility] W/O CONTRAST MATRL MRI 46870 RADIOLOGY HENRRY SPINAL 2 KYLAH CANAL ASSOCIATE THORACIC S OF NOTH W/O CONTRAST MATRL MRI 12398 RADIOLOGY GILBERT SPINAL 2 KYLAH CANAL ASSOCIATE LUMBAR S OF [facility] W/O CONTRAST MATERIAL INJECTION 60337 BINDU G BINDU G 2 SINGLE/ML T TRIGGER POINT 3/> MUSCLES RADEX 37704 [facility] ANKLE 1 Y Y COMPLETE [facility] MINIMUM 3 INC. INC. VIEWS RADIOLOGI 01787 [facility] 1 Y Y EXAMINATI [facility] ON TIBIA INC. INC. & FIBULA 2 VIEWS RADEX 06009 [facility] 2 1 Y Y VIEWS [facility] INC. INC. RADEX 52141 [facility] FOREARM 2 1 PHYSICIAN VIEWS S RADIOLOGI 39827 [facility] C 1 PHYSICIAN EXAMINATI S ON TIBIA & FIBULA 2 VIEWS DUP-SCAN 84405 [facility] KYLAH XTR VEINS 1 PHYSICIAN S UNILATERA L/LIMITED STUDY SBSQ 99628 [facility] 1 PHYSICIAN II JAM CARE/DAY S 15 MINUTES SBSQ 20731 [facility] 1 PHYSICIAN KRI CARE/DAY S 35 MINUTES INITIAL 11521 [facility] INPATIENT 1 PHYSICIAN II JAM CONSULT S NEW/ESTAB PT 55 MIN REPAIR 38483 [facility] COMPLEX 1 PHYSICIAN N BETTINA SCALP/ARM S /LEG 2.6-7.5 CM REPAIR 13503 [facility] COMPLEX 1 PHYSICIAN N BETTINA SCALP/ARM S /LEG EA ADDL 5 CM/< ANES 45869 [facility] OPEN/SURG 1 PHYSICIAN S ARTHROSCO PIC PROC KNEE JOINT NOS RADIOLOGI 88377 [facility] C 1 PHYSICIAN SEA EXAMINATI S ON TIBIA & FIBULA 2 VIEWS RADEX 36291 [facility] 2 1 PHYSICIAN VIRGINIA VIEWS S RADEX 19434 [facility] ANKLE 1 PHYSICIAN SEA COMPLETE S MINIMUM 3 VIEWS RADIOLOGI 01616 [facility] C 1 PHYSICIAN SEA EXAMINATI S [place] [address] [facility] RADIAL&UL 1 PHYSICIAN N BETTINA MAYA SHAFT S FX W/FIXJ RADIUS&UL NA ARTHRT 61962 [facility] PHYSICIAN N BETTINA W/EXPL S DRG/RMVL FB RADIOLOGI 66207 [facility] C 1 PHYSICIAN KALEN EXAMINATI S ON CHEST SINGLE VIEW FRONTAL CT THORAX 66820 [facility] 1 PHYSICIAN [place] [address] [facility] HEAD/BRAI 1 PHYSICIAN SEA N W/O S CONTRAST MATERIAL RADEX 50821 [facility] WRIST 1 PHYSICIAN SEA COMPLETE S MINIMUM 3 VIEWS RADEX 79066 [facility] FOREARM 2 1 PHYSICIAN SEA VIEWS S RADIOLOGI 63463 [facility] C 1 PHYSICIAN SEA EXAMINATI S ON KNEE 1/[address] [place] [address] [facility] THORACIC 1 PHYSICIAN SEA SPINE W/O S CONTRAST MATERIAL CT LUMBAR 63734 [facility] SPINE 1 PHYSICIAN SEA W/[place] [address] [facility] CERVICAL 1 PHYSICIAN SEA SPINE W/O S CONTRAST MATERIAL RADIOLOGI 76703 [facility] C 1 PHYSICIAN SEA EXAMINATI S ON FEMUR 2 VIEWS RADIOLOGI 7[address]87 [facility] 1 PHYSICIAN KALEN EXAMINATI S ON PELVIS 1/2 VIEWS RADEX 85862 [facility] ELBOW 2 1 PHYSICIAN PHYSICIAN VIEWS S S AMB A0431 [facility] 1 CONVNTION HELICOPTE HELICOPTE AIR SRVC RS INC RS INC TRANSPORT [address] INITIAL 65734 [facility] INPATIENT 1 PHYSICIAN KRI CONSULT S NEW/ESTAB [place] [address] [place] [address] [facility] ABDOMEN & 1 PHYSICIAN SEA PELVIS S W/CONTRAS T MATERIAL AFO TIB L2116 [facility] FX 1 [facility]OST[facility]THOTIC ORTHO ORTHO RIGID CTRINC CTRINC PRFAB W/FIT & ADJ ADD LOW L2840 [facility]ICH[facility] EXTREM 1 PROSTH PROSTH ORTHOTIC ORTHO ORTHO TIB CTRINC CTRINC LENGTH SOCK FX/= EA SBSQ 63483 [facility] 1 PHYSICIAN CARE/DAY S 35 MINUTES SBSQ 45795 [facility] 1 PHYSICIAN CARE/DAY S 35 MINUTES RADIOLOGI 03956 [facility] SOTO- C EXAM 1 PHYSICIAN CHEST 2 S VIEWS FRONTAL&L ATERAL DUP-SCAN 49164 [facility] XTR VEINS 1 PHYSICIAN KYLAH COMPLETE S BILATERAL STUDY RADIOLOGI [address] [facility] 1 PHYSICIAN KALEN EXAMINATI S ON KNEE 1/2 VIEWS SBSQ 99615 [facility] 1 PHYSICIAN KRI CARE/DAY S 35 MINUTES RADIOLOGI [address] [facility] 1 PHYSICIAN KALEN EXAMINATI S ON TIBIA & FIBULA 2 VIEWS SBSQ 04140 [facility] 1 PHYSICIAN CARE/DAY S 25 MINUTES ANES OPEN 89657 [facility] 1 PHYSICIAN GRE OSTEOTOMY S /OSTEOPLA STY TIBIA&/FI BULA OPEN 7936 [facility] 1 Y Y FRACTURE [facility] INC. INC. TIBIA&FIB W/INTERNA L FIX TX TIBL 70214 [facility] SHFT FX 1 PHYSICIAN N BETTINA IMED S IMPLT W/WO SCREWS&/C ERCLA RADIOLOGI 47520 [facility] 1 PHYSICIAN RAL EXAMINATI [place] [address] [facility] HEAD/BRAI 1 PHYSICIAN ASKILL N W/O S MAR CONTRAST MATERIAL CT THORAX 24469 [facility] 1 PHYSICIAN RAL W/CONTRAS S T MATERIAL RADIOLOGI 25034 [facility] 1 PHYSICIAN RAL EXAMINATI S ON KNEE 1/[address] [place] [address] [facility] THORACIC 1 PHYSICIAN ASKILL SPINE W/O S MAR CONTRAST MATERIAL RADIOLOGI 24796 [facility] [place] 1 PHYSICIAN RAL EXAMINATI S ON TIBIA & FIBULA 2 VIEWS RADEX 37235 [facility] 1 PHYSICIAN RAL COMPLETE S MINIMUM 2 VIEWS AMB A0431 [facility] 1 Y Y [facility] TRANSPORT [address] INITIAL 69136 [facility] 1 PHYSICIAN KATIE CARE/DAY S [address] LUMBAR 08302 [facility] SPINE 1 PHYSICIAN ASKILL W/O S MAR CONTRAST MATERIAL RADEX 93940 [facility] ANKLE 1 PHYSICIAN RAL COMPLETE [place] [address] [place] [address] [facility] CERVICAL 1 PHYSICIAN ASKILL SPINE W/[place] [address] [facility] ABDOMEN & 1 PHYSICIAN RAL PELVIS S W/CONTRAS T MATERIAL GROUND A0425 [facility] 1 LINNETTE ANGLIN PER FIRE DIS FIRE DIS STATUTE MILE AMBULANCE A0429 [facility] 1 LINNETTE ANGLIN BLS FIRE DIS FIRE DIS EMERGENCY TRANSPORT GROUND A0425 [facility] MILEAGE 1 FIRE DEPT FIRE DEPT PER STATUTE AMBULANCE AMBULANCE MILE AMB A0427 [facility] SERVICE 1 FIRE DEPT FIRE DEPT ALS EMERGENCY AMBULANCE AMBULANCE TRANSPORT LEVEL 1 INJECTION 78362 WILLIE RUANO G 1 LINWOOD RUANO MD C [facility] NRV AMBULANCE A0429 RO RO SERVICE 0 CO CO BLS AMBULANCE AMBULANCE EMERGENCY TAXIN TAXIN TRANSPORT GROUND A0425 RO RO MILEAGE 0 CO CO PER AMBULANCE AMBULANCE STATUTE TAXIN TAXIN MILE RADEX 60030 [facility]) SPINE 0 [facility] 4 OR 5 VIEWS THERAPEUT 53272 [facility] IC 0 [facility] TIC/DX INJECTION SUBQ/[place] [address] [facility] HEAD/BRAI 0 [facility] W/O [facility] CONTRAST MATERIAL IM ADM 39175 [facility] PRQ ID 0 [facility] SUBQ/[facility] NJXS 1 VACCINE RADEX 71886 [place] CHARISSA, FOOT 0 MEDICAL [facility] COMPLETE IMAGING MINIMUM 3 ASSOCIATE VIEWS S RADEX 75887 [facility] CHARISSA, ANKLE 0 MEDICAL [place] COMPLETE IMAGING MINIMUM 3 ASSOCIATE VIEWS S RADEX 54910 RADIOLOGY HENRRY, ANKLE 0 MIGUE M COMPLETE ASSOCIATE MINIMUM 3 S PSC VIEWS INJECTION 38170 WILLIE RUANO, 0 Melissa RUANO SINGLE/ML MD WING T TRIGGER POINT 3/> MUSCLES THERAPEUT 88009 WILLIE RUANO IC 0 Melissa RUANO MD TIC/DX INJECTION SUBQ/IM INJECTION 95020 WILLIE RUANO, 0 Melissa RUANO MD C [facility] NRV INJECTION 39375 WILLIE RUANO, 9 Melissa RUANO MD C [facility] NRV ARTHROCEN 21220 LISA JAMES 9 Melissa RUANO ASPIR&/IN MD WING J MAJOR JT/BURSA W/O US INJECTION 69045 WILLIE RUANO, Melissa MORSE SINGLE/ML MD WING T TRIGGER POINT 3/> MUSCLES INJECTION 78058 LINWOOD TRUJILLO MD C [facility] NRV INJECTION 94795 Nicki JAMES G A ANESTHEMA WING C [facility] NRV INJECTION 82248 Nicki JAMES G A SINGLE/ML MD WNIG T TRIGGER POINT 3/> MUSCLES NJX 42877 SHEYLA STAPLETON, ANES&/STR 9 Ely ANNE-MARIE Guardado JT NRV MDPLC CRV/THRC EA LVL NJX 22182 SHEYLA STAPLETON, ANES&/STR 9 Ely ANNE-MARIE Negron D JT NRV MDPLC CRV/THRC 1 LVL FLUOR 41518 SHEYLA STAPLETON, NEEDLE/CA 9 Ely ANNE-MARIE Negron TH MDPLC SPINE/PAR ASPINAL DX/THER ADDON FLUOR 54870 SHEYLA SAMPSONON, NEEDLE/CA 9 Ely ANNE-MARIE Negron TH MDPLC SPINE/PAR ASPINAL DX/THER ADDON DSTRJ 38198 HIRAL SEBASTIAN 9 Ely ANNE-MARIE Negron PVRT MDPLC FACET JT NRV CRV/THRC 1 LVL DSTRJ 54827 HIRAL SEBASTIAN 9 Ely ANNE-MARIE Negron PVRT MDPLC FACET JT NRV CRV/THRC EA LVL DSTRJ 66129 HIRAL SEBASTIAN 9 Ely ANNE-MARIE Negron PVRT MDPLC FACET JT NRV CRV/THRC EA LVL DSTRJ 85931 HIRAL SEBASTIAN 9 Ely ANNE-MARIE Negron PVRT MDPLC FACET JT NRV CRV/THRC 1 LVL MODERATE 04-17-200 34782 JOY SEBASTIANATLaura 9 Nguyen. ANNE-MARIE Negron SAME MDPLC PHYS/QHP 5/>YRS INIT 30 MIN FLUOR 42149 SHEYLA STAPLETON NEEDLE/CA 9 Nguyen. ANNE-MARIE Negron TH MDPLC SPINE/PAR ASPINAL DX/THER ADDON MODERATE 40280 JOY SEBASTIANATLaura 9 Nguyen. ANNE-MARIE Negron SAME MDPLC PHYS/QHP EACH ADDL 15 MIN INJECTION 21583 SHEYLA STAPLETON, 9 Ely Negron ANESTHETI MDPLC C [facility] NRV INJECTION 95852 SHEYLA STAPLETON 9 Ely Negron ANESTHETI MDPLC C [facility] NRV NJX 65704 VÍCTOR SEBASTIANS&/STR 9 Ely Guardado JT NRV MDPLC CRV/THRC EA LVL FLUOR 18076 SHEYLA STAPLETON NEEDLE/CA 9 Ely Negron TH MDPLC SPINE/PAR ASPINAL DX/THER ADDON MODERATE 41771 RADHA SEBASTIAN 9 Ely Negron SAME MDPLC PHYS/QHP 5/>YRS INIT 30 MIN NJX 25938 VÍCTOR SEBASTIANS&/STR 9 Ely Guardado JT NRV MDPLC CRV/THRC 1 LVL BLOOD 61753 [facility] 9 MEDICAL G, SUE COMPLETE GROUP B AUTO&AUTO DIFRNTL WBC NJX 10504 ANN RIVERA&/STR 9 Ely Guardado JT NRV MDPLC CRV/THRC EA LVL NJX 33211 ANN RIVERA&/STR 9 Ely Guardado JT NRV MDPLC CRV/THRC 1 LVL FLUOR 94966 LAMONTE RIVERA/CA 9 Ely EDGAR MDPLC SPINE/PAR ASPINAL DX/THER ADDON MODERATE 13230 RADHA RIVERA 9 Ely Cedillo SAME MDPLC PHYS/QHP 5/>YRS INIT 30 MIN RADEX 70753 ANDRZEJ DONNELLY SPINE 9 [facility] MINIMUM 4 VIEWS RADEX 32608 STEVENALIYAHAbril BALTAZAR, SPINE 9 MEDICAL CHRISTINE Powell THORACIC IMAGING 3 VIEWS ASSOCIATE S DSTRJ 97955 HIRAL SEBASTIAN 8 Ely Negron PVRT MDPLC FACET JT NRV CRV/THRC 1 LVL DSTRJ 16762 HIRAL SEBASTIAN 8 Ely Negron PVRT MDPLC FACET JT NRV CRV/THRC EA LVL FLUOR 48372 HSEYLA STAPLETON, NEEDLE/CA 8 Ely Negron TH MDPLC SPINE/PAR ASPIN[place] [address] [facility] TH[facility]RO[facility] 8 [facility] STIMULATI NG MEDICALCE MEDICAL[place] [address] [facility] NTER NTER BLOOD 9[address]24 [facility] COUNT 8 [facility] COMPLETE AUTO&AUTO MEDICALCE MEDICALCE DIFRNTL NTER NTER WBC FLUOR 59836 SHEYLA STAPLETON, NEEDLE/CA 8 Ely EDGAR MDPLC SPINE/PAR ASPINAL DX/THER ADDON NJX 93837 VÍCTOR SEBASTIANS&/STR 8 Ely Guardado JT NRV MDPLC CRV/THRC [place] LVL NJX 19528 VÍCTOR SEBASTIANS&/STR 8 Ely SanchezT NRV MDPLC CRV/THRC 1 LVL NJX 53855 ANN RIVERA&/STR 8 Ely SanchezT NRV MDPLC CRV/THRC 1 LVL NJX 18643 ANN RIVERA&/STR 8 Ely SanchezT NRV MDPLC CRV/THRC EA LVL FLUOR 39364 SHEYLA XIE NEEDLE/CA 8 Ely ANNE-MARIE CARRION E TH MDPLC SPINE/PAR ASPINAL DX/THER ADDON FLUOR 93389 SHEYLA XIE NEEDLE/CA 8 Ely ANNE-MARIE CARRION E TH MDPLC SPINE/PAR ASPINAL DX/THER ADDON DSTRJ 42648 HIRAL RIVERA 8 Ely ANNE-MARIE CARRION Nguyen PVRT MDPLC FACET JT NRV CRV/THRC EA LVL DSTRJ 97457 HIRAL RIVERA 8 Ely ANNE-MARIE CARRION Nguyen PVRT MDPLC FACET JT NRV CRV/THRC 1 LVL RADIOLOGI 27665 RADIOLOGY LUBBERS, C EXAM 8 YELITZA CHEST 2 ASSOCIATE VIEWS S PSC FRONTAL&L ATERAL NJX 54223 SHEYLA STAPLETON, ANES&/STR 8 Ely ANNE-MARIE Guardado JT NRV MDPLC CRV/THRC 1 LVL NJX 17533 SHEYLA SAMPSONON, ANES&/STR 8 Ely ANNE-MARIE Guardado JT NRV MDPLC CRV/THRC EA LVL FLUOR 33579 SHEYLA SAMPSONON, NEEDLE/CA 8 Ely ANNE-MARIE KO T TH MDPLC SPINE/PAR ASPINAL DX/THER ADDON FLUOR 84305 SHEYLA RISON, NEEDLE/CA 8 Ely ANNE-MARIE KO T TH MDPLC SPINE/PAR ASPINAL DX/[place] NJX 88747 SHEYLA SAMPSONON, ANES&/STR 8 Ely ANNE-MARIE Guardado JT NRV MDPLC CRV/THRC 1 LVL NJX 33357 SHEYLA SAMPSONON, ANES&/STR 8 Ely ANNE-MARIE Guardado JT NRV MDPLC CRV/THRC EA LVL RADEX 95381 GRZEGORZ BALTAZAR, NASAL 8 MEDICAL CHRISTINE P BONES IMAGING COMPLETE ASSOCIATE MINIMUM 3 S VIEWS COLLECTIO 52711 [facility], N VENOUS 8 MEDICAL V[place] [address] THYROID 8 [place] STIMULATI NG MEDICALCE MEDICALCE HORMONE NTER NTER TSH RADEX 17685 ANDRZEJ DONNELLY SHOULDER 8 [facility] COMPLETE INC INC MINIMUM 2 VIEWS ORTHOPANT 57857 ANDRZEJ DONNELLY OGRAM 8 [facility] INC RADEX [address]1518 [place] BALTAZAR, SPINE 8 MEDICAL CHRISTINE P CERVICAL IMAGING 6 OR MORE ASSOCIATE VIEWS S Encounters Encounter Start End Date Code Location Performer Type Date OFFICE 53260 [facility] 7 7 [place] T VISIT 15 PHYSICIAN MINUTES S EMERGENCY 84670 THE 7 7 [facility] T VISIT LOW/MODER SEVERITY HOSPITAL THE - 7 7 [facility] T OFFICE 66538 [facility] 7 7 [place] T VISIT 25 PHYSICIAN MINUTES S OFFICE 80937 [facility] 6 [place] A[facility] T VISIT 15 PHYSICIAN MINUTES S OFFICE [address] [facility] 6 6 [place] T VISIT 25 PHYSICIAN MINUTES S EMERGENCY 53629 [facility] 6 6 EMERGENCY [facility] T VISIT PHYSICIAN MODERATE S SEVERITY [facility] ST - 5 5 [place] [facility] EMERGENCY 28492 [facility] 5 5 [place] [facility] T [facility]ISIT MODERATE [facility]VERITY [facility] 5 5 [place] [facility] 41650 [facility] 5 5 [place] [facility] T VISIT MODERATE [facility]VERITY [facility] - 5 5 [place] [facility] 5 [facility] T IN HOME [facility] OFFICE 62617 [facility] 5 5 LTH T NEW 30 ORTHOPAE MINUTES EMERGENCY 11-03-201 11-03-201 [id number] ALBERT WOOD [address] [facility] T VISIT MODERATE SEVERITY OFFICE 54086 STEPHANIE SCHUSSLER OUTPATIEN 3 3 THO THO T VISIT [address] [facility] 3 [facility] [address] [facility] 08967 LARYUSSJUSTIN GEORGELER OUTPATIEN 3 3 THO THO T VISIT [address] - [address] [facility] 92563 STEPHANIE BARTHUSSLER OUTPATIEN 3 3 THO THO T VISIT [address] [facility] 99079 [facility] 3 3 DI MAR DI MAR T VISIT 25 MINUTES OFFICE 55774 GRUNKEMEY GRUNKEMEY OUTPATIEN 3 3 ER MAT ER MAT T NEW 45 MINUTES HOSPITAL THE - [address] [facility] - [address] [facility] ST[facility] - 2 2 [facility] [address] [facility] 2 2 [facility] T VISIT MODERATE SEVERITY OFFICE 81292 BINDU G BINDU G OUTPATIEN 2 2 T VISIT 25 MINUTES OFFICE 17374 BINDU G BINDU G OUTPATIEN 1 1 T VISIT 25 MINUTES HOSPITAL UNIVERSIT - 1 1 Y [facility] T INC. OFFICE 05849 [facility] 1 1 Y T VISIT HOSPITAL 10 INC. MINUTES OFFICE 62114 BINDU Torres OUTPATIEN 1 1 T VISIT 15 MINUTES EMERGENCY 08199 [facility] [address] [facility] S T VISIT HIGH/URGE NT SEVERITY OFFICE 97073 [facility] 1 1 Y T VISIT HOSPITAL 10 INC. MINUTES HOSPITAL UNIVERSIT - 1 1 Y [facility] T INC. EMERGENCY 14190 EMERGENCY [facility] [address] PHYS T VISIT [facility] HIGH/URGE NT SEVERITY OFFICE 38285 WILLIE Torres [facility] 1 1 Jamil RUANO VISIT MD WING 15 MINUTES HOSPITAL UNIVERSIT - 1 1 Y INPATIENT HOSPITAL INC. EMERGENCY 98870 [facility] 1 1 CARE VISIT PHYS HIGH [facility]& [facility]RE[facility] [facility] 0 0 [facility] T VISIT HIGH/URGE NT SEVERITY [facility]PITAL ST - 0 0 [facility] T OFFICE 79540 WILLIE Torres OUTPATIEN 0 0 Jamil RUANO VISIT MD WING 25 MINUTES OFFICE 83214 ZAIDA JAMES 0 0 Melissa RUANO VISIT MD WING 15 MINUTES HOSPITAL ANDRZEJ - 0 0 [facility] T OFFICE 96994 ZAIDA JAMES 0 0 Melissa RUANO T VISIT MD WING [address] - 0 0 [facility] T EMERGENCY 94800 [facility], 0 0 [facility] T VISIT HIGH/URGE NT SEVERITY OFFICE 54187 WILLIE RUANO OUTPATIEN 9 9 Melissa RUANO A T VISIT [facility] 15 MINUTES OFFICE 47684 WILLIE Torres OUTPATIEN 9 9 BINDU, T VISIT [facility] 25 MINUTES OFFICE 47935 WILLIE RUANO OUTPATIEN 9 9 Melissa RUANO A T VISIT [facility] 25 MINUTES OFFICE 77333 [facility] 9 9 MEDICAL SUE Torres T VISIT GROUP B 25 MINUTES OFFICE 14475 [facility] 9 9 MEDICAL SUE Torres T VISIT GROUP B 15 MINUTES HOSPITAL ANDRZEJ - 9 9 [facility] INC T OFFICE 77938 ZAIDA SEBASTIAN 9 9 Ely KO T T VISIT [facility] [address] - 8 8 [facility] MEDICALCE NTER OFFICE 52800 [facility] 8 8 MEDICAL MelissaSUE T VISIT GROUP B 25 MINUTES [facility] - 8 8 [facility] 30844 ZAIDA SEBASTIAN 8 8 Ely Negron T NEW 30 MDPLC MINUTES EMERGENCY 25310 ANDRZEJ 8 8 [facility] INC T VISIT MODERATE SEVERITY EMERGENCY 83294 ANDRZEJ VALENTINO, [address] [facility] T VISIT PROF SERV LOW/MODER SEVERITY [facility]OSPITAL ANDRZEJ - 8 8 [facility] T OFFICE 67521 [facility] ZAIDA GERBER 8 8 MEDICAL VIRAL T VISIT GROUP 15 MINUTES OFFICE 78064 [facility]ISH[facility] 8 8 MEDICAL VIRAL T VISIT GROUP 25 MINUTES HOSPITAL - 8 8 [facility] 8 8 [facility] T OFFICE 53069 [facility] 8 8 MEDICAL VIRAL T VISIT GROUP 15 MINUTES [facility]OSP[facility] 8 8 [facility] T OFF[facility] 09852 [facility] OUTYURIY 8 8 MEDICAL VIRAL T VISIT GROUP 25 MINUTES
--- OUTSIDE RECORDS SUMMARY | 2016-07-06 16:28 | External Medical Summary Rpt ---
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 S RADEX 93763 RADIOLOGY HENRRY, ANKLE 0 MIGUE M COMPLETE ASSOCIATE MINIMUM 3 S PSC VIEWS INJECTION 95895 WILLIE RUANO, 0 Melissa RUANO SINGLE/ML MD WING T TRIGGER POINT 3/> MUSCLES THERAPEUT 44935 WILLIE RUANO IC 0 Melissa RUANO MD TIC/DX INJECTION SUBQ/IM INJECTION 30036 WILLIE RUANO, 0 Melissa RUANO MD C [facility] NRV INJECTION 96580 WILLIE RUANO, 9 Melissa RUANO MD C [facility] NRV ARTHROCEN 64618 LISA JAMES 9 Melissa RUANO ASPIR&/IN MD WING J MAJOR JT/BURSA W/O US INJECTION 76216 WILLIE RUANO, Melissa MORSE SINGLE/ML MD WING T TRIGGER POINT 3/> MUSCLES INJECTION 43812 LINWOOD TRUJILLO MD C [facility] NRV INJECTION 19251 Nicki JAMES G A ANESTHEMA IWNG C [facility] NRV INJECTION 32920 Nicki JAMES G A SINGLE/ML MD WING T TRIGGER POINT 3/> MUSCLES NJX 51314 SHEYLA STALPETON, ANES&/STR 9 Ely ANNE-MARIE Guardado JT NRV MDPLC CRV/THRC [place] LVL NJX 14201 SHEYLA STAPLETON, ANES&/STR 9 Ely ANNE-MARIE Negron D JT NRV MDPLC CRV/THRC 1 LVL FLUOR 18763 SHEYLA STAPLETON, NEEDLE/CA 9 Ely ANNE-MARIE Negron TH MDPLC SPINE/PAR ASPINAL DX/THER ADDON FLUOR 73098 SHEYLA SAMPSONON, NEEDLE/CA 9 Ely ANNE-MARIE Negron TH MDPLC SPINE/PAR ASPINAL DX/THER ADDON DSTRJ 78812 HIRAL SEBASTIAN 9 Ely ANNE-MARIE Negron PVRT MDPLC FACET JT NRV CRV/THRC 1 LVL DSTRJ 75487 HIRAL SEBASTIAN 9 Ely ANNE-MARIE Negron PVRT MDPLC FACET JT NRV CRV/THRC EA LVL DSTRJ 15543 HIRAL SEBASTIAN 9 Ely ANNE-MARIE Negron PVRT MDPLC FACET JT NRV CRV/THRC EA LVL DSTRJ 23188 HIRAL SEBASTIAN 9 Ely ANNE-MARIE Negron PVRT MDPLC FACET JT NRV CRV/THRC 1 LVL MODERATE 04-17-200 52732 JOY SEBASTIANATLaura 9 Nguyen. ANNE-MARIE Negron SAME MDPLC PHYS/QHP 5/>YRS INIT 30 MIN FLUOR 68732 SHEYLA STAPLETON NEEDLE/CA 9 Nguyen. ANNE-MARIE Negron TH MDPLC SPINE/PAR ASPINAL DX/THER ADDON MODERATE 07660 JOY SEBASTIANATLaura 9 Nguyen. ANNE-MARIE Negron SAME MDPLC PHYS/QHP EACH ADDL 15 MIN INJECTION 39086 SHEYLA STAPLETON, 9 Ely Negron ANESTHETI MDPLC C [facility] NRV INJECTION 26073 SHEYLA STAPLETON 9 Ely Negron ANESTHETI MDPLC C [facility] NRV NJX 95533 VÍCTOR SEBASTIANS&/STR 9 Eyl Guardado JT NRV MDPLC CRV/THRC EA LVL FLUOR 96095 SHEYLA STAPLETON NEEDLE/CA 9 Ely Negron TH MDPLC SPINE/PAR ASPINAL DX/THER ADDON MODERATE 33797 RADHA SEBASTIAN 9 Ely Negron SAME MDPLC PHYS/QHP 5/>YRS INIT 30 MIN NJX 00513 VÍCTOR SEBASTIANS&/STR 9 Ely Guardado JT NRV MDPLC CRV/THRC 1 LVL BLOOD 92401 [facility] COUNT 9 MEDICAL G, SUE COMPLETE GROUP B AUTO&AUTO DIFRNTL WBC NJX 67737 ANN RIVERA&/STR 9 Ely Guardado JT NRV MDPLC CRV/THRC EA LVL NJX 76926 ANN RIVERA&/STR 9 Ely Guardado JT NRV MDPLC CRV/THRC 1 LVL FLUOR 63505 LAMONTE RIVERA/CA 9 Ely EDGAR MDPLC SPINE/PAR ASPINAL DX/THER ADDON MODERATE 88441 RADHA RIVERA 9 Ely Cedillo SAME MDPLC PHYS/QHP 5/>YRS INIT 30 MIN RADEX 36141 ANDRZEJ DONNELLY SPINE 9 [facility] INC AL MINIMUM 4 VIEWS RADEX 64244 STEVENALIYAHAbril BALTAZAR, SPINE 9 MEDICAL CHRISTINE Powell THORACIC IMAGING 3 VIEWS ASSOCIATE S DSTRJ 65049 HIRAL SEBASTIAN 8 Ely Negron PVRT MDPLC FACET JT NRV CRV/THRC 1 LVL DSTRJ 97839 HIRAL SEBASTIAN 8 Ely Negron PVRT MDPLC FACET JT NRV CRV/THRC EA LVL FLUOR 84249 SHEYLA STAPLETON, NEEDLE/CA 8 Ely Negron TH MDPLC SPINE/PAR ASPINAL DX/[place] [address] [facility] THYROID 8 [facility] STIMULAT[facility] NG MEDICALCE MEDICAL[place] [address] [facility] TH[facility]ICALCE NTER NTER BLOOD 26925 [facility] COUNT 8 [facility] COMPLETE AUTO&AUTO MEDICALCE MEDICALCE DIFRNTL NTER NTER WBC FLUOR 02471 SHEYLA STAPLETON, NEEDLE/CA 8 Ely EDGAR MDPLC SPINE/PAR ASPINAL DX/[place] NJX 32482 VÍCTOR SEBASTIANS&/STR 8 Ely Guardado JT NRV MDPLC CRV/THRC EA LVL NJX 30358 VÍCTOR SEBASTIANS&/STR 8 Ely SanchezT NRV MDPLC CRV/THRC 1 LVL NJX 09452 ANN RIVERA&/STR 8 Ely SanchezT NRV MDPLC CRV/THRC 1 LVL NJX 67914 ANN RIVERA&/STR 8 Ely SanchezT NRV MDPLC CRV/THRC EA LVL FLUOR 55800 SHEYLA XIE NEEDLE/CA 8 Ely ANNE-MARIE CARRION E TH MDPLC SPINE/PAR ASPINAL DX/THER ADDON FLUOR 93338 SHEYLA XIE NEEDLE/CA 8 Ely ANNE-MARIE CARRION E TH MDPLC SPINE/PAR ASPINAL DX/THER ADDON DSTRJ 25435 HIRAL RIVERA 8 Ely ANNE-MARIE CARRION Nguyen PVRT MDPLC FACET JT NRV CRV/THRC EA LVL DSTRJ 57719 HIRAL RIVERA 8 Ely ANNE-MARIE CARRION Nguyen PVRT MDPLC FACET JT NRV CRV/THRC 1 LVL RADIOLOGI 49397 RADIOLOGY LUBBERS, C EXAM 8 YELITZA CHEST 2 ASSOCIATE VIEWS S PSC FRONTAL&L ATERAL NJX 65844 SHEYLA STAPLETON, ANES&/STR 8 Ely ANNE-MARIE Guardado JT NRV MDPLC CRV/THRC 1 LVL NJX 21652 SHEYLA SAMPSONON, ANES&/STR 8 Ely ANNE-MARIE Guardado JT NRV MDPLC CRV/THRC EA LVL FLUOR 34784 SHEYLA SAMPSONON, NEEDLE/CA 8 Ely ANNE-MARIE KO T TH MDPLC SPINE/PAR ASPINAL DX/THER ADDON FLUOR 45575 SHEYLA RISON, NEEDLE/CA 8 Ely ANNE-MARIE KO T TH MDPLC SPINE/PAR ASPINAL DX/[place] NJX 53419 SHEYLA SAMPSONON, ANES&/STR 8 Ely ANNE-MARIE Guardado JT NRV MDPLC CRV/THRC 1 LVL NJX 30724 SHEYLA SAMPSONON, ANES&/STR 8 Ely ANNE-MARIE Guardado JT NRV MDPLC CRV/THRC EA LVL RADEX 41590 GRZEGORZ BALTAZAR, NASAL 8 MEDICAL CHRISTINE P BONES IMAGING COMPLETE ASSOCIATE MINIMUM 3 S VIEWS COLLECTIO 72312 [facility], N VENOUS 8 MEDICAL VIRAL [place] [address] THYROID 8 [facility] [facility] STIMULATI NG MEDICALCE MEDICALCE HORMONE NTER NTER TSH RADEX 90170 ANDRZEJ DONNELLY SHOULDER 8 [facility] COMPLETE INC INC MINIMUM 2 VIEWS ORTHOPANT 59480 ANDRZEJ DONNELLY OGRAM 8 [facility] INC INC RADEX 02340 [place] BALTAZAR, SPINE 8 MEDICAL CHRISTINE P CERVICAL IMAGING 6 OR MORE ASSOCIATE VIEWS S Encounters Encounter Start End Date Code Location Performer Type Date OFFICE 86673 [facility] 7 7 [place] T VISIT 15 PHYSICIAN MINUTES S EMERGENCY 85123 [facility] 7 7 [facility] T VISIT LOW/MODER SEVERITY [facility] - 7 7 [facility] T OFFICE 29781 [facility] 7 7 [place] T VISIT 25 PHYSICIAN MINUTES S OFFICE 04504 [facility] 6 [place] ALEX T VISIT 15 PHYSICIAN MINUTES S OFFICE 15109 [facility] 6 6 [place] T VISIT 25 PHYSICIAN MINUTES S EMERGENCY 89235 TAMMI MCCRAY 6 6 EMERGENCY [facility] T VISIT PHYSICIAN MODERATE S SEVERITY [facility] ST - 5 5 [place] [facility] EMERGENCY 65931 [facility] 5 5 [place] [facility] T VISIT MODERATE [facility]VERITY [facility] - 5 5 [facility] 66154 [facility] 5 5 [place] [facility] VISIT MODERATE SEVERITY [facility] - 5 5 [place] - 5 5 [place] [facility] MED CTR T CONTINUOUS IMPROVEMENT INTERN ST OFFICE 81568 SHAILA COLLINS [facility] 5 5 LTH T NEW 30 ORTHOPAE MINUTES EMERGENCY 11-03-201 11-03-201 66841 ALBERT WOOD 3 3 MANUEL MANUEL [facility] T VISIT MODERATE SEVERITY OFFICE 00086 STEPHANIE SCHUSSLER OUTPATIEN 3 3 THO THO T VISIT [address] - [facility] 3 3 [facility] 3 [facility] 61728 LARYUSSJUSTIN GEORGELER OUTPATIEN 3 3 THO THO T VISIT [address] - 3 3 [facility] 89640 STEPHANIE BARTHUSSLER OUTPATIEN 3 3 THO THO T VISIT [address] - 3 3 [facility] 78001 [facility] OUTPSYCHIATRIC 3 3 DI MAR DI MAR T VISIT 25 MINUTES OFFICE 62124 GRUNKEMEY GRUNKEMEY OUTPATIEN 3 3 ER MAT ER MAT T NEW 45 MINUTES HOSPITAL THE - 2 2 [facility] THE - 2 2 [facility] ST. - 2 2 [facility] [address] [facility] MANUEL 2 2 [place] T VISIT MODERATE SEVERITY OFFICE 95760 [facility] G [facility] G OUTPATIEN 2 2 T VISIT 25 MINUTES OFFICE 22086 BINDU G BINDU G OUTPATIEN 1 1 T VISIT 25 MINUTES HOSPITAL UNIVERSIT - 1 1 Y [facility] HOSPITAL T INC. OFFICE 99923 [facility] 1 1 Y T VISIT HOSPITAL 10 INC. MINUTES OFFICE 29055 BINDU Torrse OUTPATIEN 1 1 T VISIT 15 MINUTES EMERGENCY 50532 [facility] 1 1 PHYSICIAN [facility]USA [facility] S T VISIT HIGH/URGE NT SEVERITY OFFICE 42543 [facility] OUTPSYCHIATRIC 1 1 Y T VISIT HOSPITAL 10 INC. MINUTES HOSPITAL UNIVERSIT - 1 1 Y [facility] T INC. EMERGENCY 22557 EMERGENCY [facility] 1 1 CARE BETTINA [facility] PHYS T VISIT [facility] HIGH/URGE NT SEVERITY OFFICE 72380 WILLIE Torres [facility] 1 1 Jamil RUANO VISIT MD WING 15 MINUTES HOSPITAL UNIVERSIT - 1 1 Y INPATIENT HOSPITAL INC. EMERGENCY 87355 EMERGENCY [facility] DEPT 1 1 CARE VISIT PHYS HIGH [facility] SEVERITY& THREAT [facility] EMERGENCY [address] 0 0 [facility] T VISIT HIGH/URGE NT SEVERITY [facility]PITAL ST - 0 0 [facility] T OFFICE 83368 WILLIE Torres OUTPATIEN 0 0 Jamil RUANO VISIT MD WING 25 MINUTES OFFICE 25727 ZAIDA JAMES 0 0 Melissa RUANO VISIT MD WING 15 MINUTES HOSPITAL ANDRZEJ - 0 0 [facility] T OFFICE 88484 ZAIDA JAMES 0 0 Melissa RUANO T VISIT MD WING [address] - 0 0 [facility] T EMERGENCY 96260 [facility], 0 0 [facility] MED CTR T VISIT HIGH/URGE NT SEVERITY OFFICE 09477 WILLIE RUANO OUTPATIEN 9 9 Melissa RUANO A T VISIT [facility] 15 MINUTES OFFICE 09992 WILLIE Torres OUTPATIEN 9 9 BINDU, T VISIT [facility] 25 MINUTES OFFICE 66910 WILLIE RUANO OUTPATIEN 9 9 Melissa RUANO A T VISIT [facility] 25 MINUTES OFFICE 45403 [facility] OUT[facility] 9 9 MEDICAL SUE Torres T VISIT GROUP B 25 MINUTES OFFICE 58193 [facility] 9 9 MEDICAL SUE Torres T VISIT GROUP B 15 MINUTES HOSPITAL ANDRZEJ - 9 9 [facility] OUTPATIEN INC T OFFICE 71543 ZAIDA SEBASTIAN 9 9 Ely KO T T VISIT MDPLC [address] - 8 8 [facility] MED[facility] NTER OFFICE 35444 [facility] 8 8 MEDICAL MelissaSUE T VISIT GROUP B 25 MINUTES HOSPITAL [facility] - 8 8 [facility] 06206 ZAIDA SEBASTIAN 8 8 Ely Negron T NEW 30 MDPLC MINUTES EMERGENCY 08949 ANDRZEJ 8 8 [facility] HOS[facility] INC T VISIT MODERATE SEVERITY EMERGENCY 52319 ANDRZEJ VALENTINO, 8 8 [facility] T VISIT PROF SERV LOW/MODER SEVERITY HOSPITAL ANDRZEJ - 8 8 [facility] OUTPATIEN INC T OFFICE 28979 [facility] ZAIDA GERBER 8 8 MEDICAL VIRAL T VISIT GROUP 15 MINUTES OFFICE 54756 [facility] BUZZ OUTPATISHON 8 8 MEDICAL VIRAL T VISIT GROUP 25 MINUTES HOSPITAL - 8 8 [place] OUT[facility]IEN T [facility] TA[facility] - 8 8 [facility] OUTPATIEN INC T OFFICE 88323 [facility] ZAIDA GERBER 8 8 MEDICAL VIRAL T VISIT GROUP 15 MINUTES HOSPITAL TAFT - 8 8 [facility] OUTPATIEN INC T OFFICE 56165 [facility] BU[facility] OUTYURIY 8 8 MEDICAL VIRAL T VISIT GROUP 25 MINUTES
--- OUTSIDE RECORDS SUMMARY | 2016-07-06 16:30 | External Medical Summary Rpt ---
Demographics Preferred Language Divehi Marital Status Unknown Hinduism Affiliation Unknown Race Unknown Ethnic Group Unknown Author Author , Organization [employer] Address Unknown Phone Unavailable Purpose Continuity of Care Document - through 2016 Immunization No patient found.
--- OUTSIDE RECORDS SUMMARY | 2016-07-06 16:30 | External Medical Summary Rpt ---
Demographics Preferred Language Occitan Marital Status Unknown Sikh Affiliation Unknown Race Unknown Ethnic Group Unknown Author Author , Organization [employer] Address Unknown Phone Unavailable Purpose Continuity of Care Document - through 2016 Immunization No patient found.
--- OUTSIDE RECORDS SUMMARY | 2016-07-06 16:32 | External Medical Summary Rpt ---
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 Jun 17 hils informa informa informa 2013 [#/volu tion in tion in tion in 3:15 PM me] in source source source Blood data data data by Automat ed count Lymphoc 32.3 No % No No Jun 17 ytes informa informa informa 2013 [#/volu tion in tion in tion in 3:15 PM me] in source source source Blood data data data by Automat ed count Monocyt 5.0 No % No No Jun 17 es informa informa informa 2013 [#/volu tion in tion in tion in 3:15 PM me] in source source source Blood data data data by Automat ed count Eos 2.5 No % No No Jun 14 Percent informa informa informa 2013 tion in tion in tion in 3:15 PM source source source data data data Baso 0.6 No % No No Apr 14 Percent informa informa informa 2014 tion in tion in tion in 3:15 PM source source source data data data Neut# 2.2 1.8 - x10(3)/ No No Apr 14 7.7 mcL informa informa 2014 tion in tion in 3:15 PM source source data data Lymph# 1.2 0.6 - x10(3)/ No No Apr 14 4.8 mcL informa informa 2014 tion in tion in 3:15 PM source source data data [place]# 0.2 0.0 - x10(3)/ No No Apr 14 1.3 mcL informa informa 2014 tion in tion in 3:15 PM source source data data Eos# 0.1 0.0 - x10(3)/ No No Apr 14 0.5 mcL informa informa 2013 tion in tion in 3:15 PM source source data data Baso# 0.0 0.0 - x10(3)/ No No Apr 14 0.2 mcL informa informa 2013 tion in tion in 3:15 PM source source data data CBC Observa Value Referen Units Interpr Notes Date tion ce etation Range LEUKOCY 3.7 4.0 - x10(3)/ Low No Apr 14 GHASSAN 11.0 mcL informa 2013 tion in 3:15 PM source data Erythro 4.33 3.80 - x10(6)/ No No Apr 14 cytes 5.10 mcL informa informa 2013 [#/volu tion in tion in 3:15 PM me] in source source Blood data data by Automat ed count Hemoglo 10.4 12.0 - gm/dL Low No Apr 14 bin 15.6 informa 2013 [Mass/v tion in 3:15 PM olume] source in data Blood Hematoc 32.7 35.7 - % Low No Apr 14 rit 45.9 informa 2013 [Volume tion in 3:15 PM source Fractio data n] of Blood by Automat ed count Erythro 75.5 82.5 - fL Low No Apr 14 cyte 99.8 informa 2013 mean tion in 3:15 PM corpusc source ular data volume [Entiti c volume] by Automat ed count Erythro 23.9 27.0 - pg Low No Jun 17 cyte 34.3 informa 2013 mean tion in 3:15 PM corpusc source ular data hemoglo bin [Entiti c mass] by Automat ed count Erythro 31.7 32.1 - gm/dL Low No Jun 17 cyte 35.3 informa 2013 mean tion in 3:15 PM corpusc source ular data hemoglo bin concent ration [Mass/v olume] by Automat ed count Erythro 16.3 11.5 - % High No Jun 17 cyte 15.0 informa 2013 distrib tion in 3:15 PM ution source width data [Ratio] by Automat ed count Platele 235 144 - x10(3)/ No No Jun 14 ts 423 mcL informa informa 2013 [#/volu tion in tion in 3:15 PM me] in source source Blood data data by Automat ed count MPV 7.9 6.8 - fL No No Jun 17 10.8 informa informa 2013 tion in tion in 3:15 PM source source data data Diff Observa Value Referen Units Interpr Notes Date tion ce etation Range Neutrop 3 0 - 10 % No No Feb 28 hils.ba informa informa 2012 nd tion in tion in 11:59 form/10 source source AM 0 data data leukocy ghassan in Blood by Manual count Anisocy Slight No No No No Feb 28 tosis informa informa informa informa 2012 [Presen tion in tion in tion in tion in 11:59 ce] in source source source source AM Blood data data data data Polychr Slight No No No No Feb 28 omasia informa informa informa informa 2012 [Presen tion in tion in tion in tion in 11:59 ce] in source source source source AM Blood data data data data by Light microsc opy Ovalocy Occasio No No No No Feb 28 ghassan nal informa informa informa informa 2012 [Presen tion in tion in tion in tion in 11:59 ce] in source source source source AM Blood data data data data by Light microsc opy Auto Diff Observa Value Referen Units Interpr Notes Date tion ce etation Range Neutrop 59.8 No % No Feb 28 hils informa informa informa 2012 [#/volu tion in tion in tion in 11:59 me] in source source source AM Blood data data data by Automat ed count Lymphoc 30.2 No % No Feb 28 ytes informa informa informa 2012 [#/volu tion in tion in tion in 11:59 me] in source source source AM Blood data data data by Automat ed count Monocyt 8.3 No % No Feb 28 es informa informa informa 2012 [#/volu tion in tion in tion in 11:59 me] in source source source AM Blood data data data by Automat ed count Eos 1.4 No % No Feb 28 Percent informa informa informa 2013 tion in tion in tion in 11:59 source source source AM data data data Baso 0.3 No % No Feb 28 Percent informa informa informa 2013 tion in tion in tion in 11:59 source source source AM data data data Neutrop 2.2 1.8 - x10(3)/ No Feb 28 hils 7.7 mcL informa informa 2012 [#/volu tion in tion in 11:59 me] in source source AM Blood data data Lymphoc 1.1 0.6 - x10(3)/ No Feb 28 ytes 4.8 mcL informa informa 2012 [#/volu tion in tion in 11:59 me] in source source AM Blood data data Monocyt 0.3 0.0 - x10(3)/ No Feb 28 es 1.3 mcL informa informa 2012 [#/volu tion in tion in 11:59 me] in source source AM Blood data data Eosinop 0.1 0.0 - x10(3)/ No Feb 28 hils 0.5 mcL informa informa 2012 [#/volu tion in tion in 11:59 me] in source source AM Blood data data Basophi 0.0 0.0 - x10(3)/ No Feb 28 ls 0.2 mcL informa informa 2012 [#/volu tion in tion in 11:59 me] in source source AM Blood data data CBC Observa Value Referen Units Interpr Notes Date tion ce etation Range LEUKOCY 3.7 4.0 - x10(3)/ Low No Feb 28 GHASSAN 11.0 mcL informa 2012 tion in 11:59 source AM data Erythro 3.79 3.80 - x10(6)/ Low No Feb 28 cytes 5.10 mcL informa 2012 [#/volu tion in 11:59 me] in source AM Blood data by Automat ed count Hemoglo 11.4 12.0 - gm/dL Low No Feb 28 bin 15.6 informa 2013 [Mass/v tion in 11:59 olume] source AM in data Blood Hematoc 34.1 35.7 - % Low No Feb 28 rit 45.9 informa 2012 [Volume tion in 11:59 source AM Fractio data n] of Blood by Automat ed count Erythro 90.0 82.5 - fL No Feb 28 cyte 99.8 informa informa 2013 mean tion in tion in 11:59 corpusc source source AM ular data data volume [Entiti c volume] by Automat ed count Erythro 30.0 27.0 - pg No Feb 28 cyte 34.3 informa informa 2013 mean tion in tion in 11:59 corpusc source source AM ular data data hemoglo bin [Entiti c mass] by Automat ed count Erythro 33.3 32.1 - gm/dL No Feb 28 cyte 35.3 informa informa 2013 mean tion in tion in 11:59 corpusc source source AM ular data data hemoglo bin concent ration [Mass/v olume] by Automat ed count Erythro 14.2 11.5 - % No Feb 28 cyte 15.0 informa informa 2012 distrib tion in tion in 11:59 ution source source AM width data data [Ratio] by Automat ed count Platele 175 144 - x10(3)/ No No Feb 28 ts 423 mcL informa informa 2012 [#/volu tion in tion in 11:59 me] in source source AM Blood data data by Automat ed count Platele 8.3 6.8 - fL No Feb 28 t mean 10.8 informa informa 2013 volume tion in tion in 11:59 [Entiti source source AM c data data volume] in Blood XR CHEST PA AND LATERAL Observa Value Referen Units Interpr Notes Date tion ce etation Range XR No No No No Dec 2 CHEST informa informa informa informa 2013 PA AND tion in tion in tion in tion in 11:51 LATERAL source source source source AM data data data data 02/05/20 13\\.br\\ \\.br\\HI STORY: Cough and congest ion\\.br \\\\.br\\C OMPARIS ON: July 2010\\.b r\\\\.br\\ Lungs are clear. The heart and mediast inum are normal. \\.br\\\\. br\\IMPR ESSION: No active disease . Auto Diff Observa Value Referen Units Interpr Notes Date tion ce etation Range Neutrop 46.4 No % No No Sep 30 hils informa informa informa 2012 [#/volu tion in tion in tion in 2:01 PM me] in source source source Blood data data data by Automat ed count Lymphoc 42.8 No % No No Sep 30 ytes informa informa informa 2012 [#/volu tion in tion in tion in 2:01 PM me] in source source source Blood data data data by Automat ed count Monocyt 8.0 No % No No Sep 30 es informa informa informa 2012 [#/volu tion in tion in tion in 2:01 PM me] in source source source Blood data data data by Automat ed count Eos 2.5 No % No No Sep 30 Percent informa informa informa 2012 tion in tion in tion in 2:01 PM source source source data data data Baso 0.3 No % No No Sep 30 Percent informa informa informa 2012 tion in tion in tion in 2:01 PM source source source data data data Neut# 1.1 1.8 - x10(3)/ Low No Sep 30 7.7 mcL informa 2012 tion in 2:01 PM source data Lymph# 1.0 1.0 - x10(3)/ No No Sep 30 4.8 mcL informa informa 2013 tion in tion in 2:01 PM source source data data [place]# 0.2 0.0 - x10(3)/ No No Sep 30 1.3 mcL informa informa 2013 tion in tion in 2:01 PM source source data data Eos# 0.1 0.1 - x10(3)/ No No Sep 30 0.5 mcL informa informa 2013 tion in tion in 2:01 PM source source data data Baso# 0.0 0.0 - x10(3)/ No No Sep 30 0.2 mcL informa informa 2013 tion in tion in 2:01 PM source source data data Diff Observa Value Referen Units Interpr Notes Date tion ce etation Range Neutrop 2 0 - 10 % No No Sep 30 hils.ba informa informa 2013 nd tion in tion in 2:01 PM form/10 source source 0 data data leukocy ghassan in Blood by Manual count RBC Normal No No No No Sep 30 Morph informa informa informa informa 2013 tion in tion in tion in tion in 2:01 PM source source source source data data data data Aniso Slight No No No No Sep 30 informa informa informa informa 2013 tion in tion in tion in tion in 2:01 PM source source source source data data data data Polychr Slight No No No No Sep 30 om informa informa informa informa 2013 tion in tion in tion in tion in 2:01 PM source source source source data data data data Ovalocy Occasio No No No No Sep 30 te nal informa informa informa informa 2013 tion in tion in tion in tion in 2:01 PM source source source source data data data data Teardro Occasio No No No No Sep 30 p Cell nal informa informa informa informa 2013 tion in tion in tion in tion in 2:01 PM source source source source data data data data CBC Observa Value Referen Units Interpr Notes Date tion ce etation Range LEUKOCY 2.3 4.0 - x10(3)/ Low No Sep 30 GHASSAN 11.0 mcL informa 2012 tion in 1:52 PM source data Erythro 3.65 4.00 - x10(6)/ Low No Sep 30 cytes 5.10 mcL informa 2012 [#/volu tion in 1:52 PM me] in source Blood data by Automat ed count Hemoglo 11.0 12.0 - gm/dL Low No Sep 30 bin 15.7 informa 2012 [Mass/v tion in 1:52 PM olume] source in data Blood Hematoc 33.2 36.0 - % Low No Nov 30 rit 45.9 informa 2012 [Volume tion in 1:52 PM source Fractio data n] of Blood by Automat ed count Erythro 91.1 80.0 - fL No No Dec 03 cyte 95.8 informa informa 2012 mean tion in tion in 1:52 PM corpusc source source ular data data volume [Entiti c volume] by Automat ed count Erythro 30.1 27.0 - pg No No Dec 03 cyte 33.2 informa informa 2012 mean tion in tion in 1:52 PM corpusc source source ular data data hemoglo bin [Entiti c mass] by Automat ed count Erythro 33.1 33.0 - gm/dL No No Dec 03 cyte 36.0 informa informa 2012 mean tion in tion in 1:52 PM corpusc source source ular data data hemoglo bin concent ration [Mass/v olume] by Automat ed count Erythro 17.0 11.5 - % High No Dec 03 cyte 14.5 informa 2012 distrib tion in 1:52 PM ution source width data [Ratio] by Automat ed count Platele 110 150 - x10(3)/ Low No Nov 30 ts 400 mcL informa 2012 [#/volu tion in 1:52 PM me] in source Blood data by Automat ed count MPV 8.2 7.0 - fL No No Dec 03 12.0 informa informa 2012 tion in tion in 1:52 PM source source data data HepC Qnt-[facility] Observa Value Referen Units Interpr Notes Date tion ce etation Range Hepatit <1.6 No log_IU No INTERPR Sep 18 is C informa informa ETIVE 2013 RNA tion in tion in INFORMA 9:59 PM source source TION: data data Hepatit is C Virus RNA\\.br \\Quanti tative Real-Ti me PCR(log IU/mL)\\ .br\\\\.b r\\The quantit ative range of this assay is 1.6 - 7.8 log IU/mL\\. br\\(43- 69,000, 000 IU/mL). \\.br\\Th e limit of detecti on (LOD) of this assay for all\\.br \\genoty pes is 18 IU/mL (1.2 log IU/mL). \\.br\\Th e limit of detecti on (LOD) of this assay for genotyp e I\\.br\\i s 7.1 IU/mL (0.85 log IU/mL). \\.br\\Th tabitha LOD values do not apply to diluted specime ns.\\.br \\An interpr etation of "Not Detecte d" does not rule out the\\.br \\presen ce of PCR inhibit ors in the patient specime n or\\.br\\ hepatit is C virus RNA concent rations below the level of\\.br\\ detecti on of the test. Care should be taken when\\.b r\\inter preting any single viral load determi nation. \\.br\\Th is test should not be used for blood donor screeni ng,\\.br \\associ ated re-entr y protoco ls, or for screeni ng Human Cell,\\. br\\Tiss ues and Cellula r Tissue- Based Product s (HCT/P) . HCV <43 No IU/mL No No Sep 18 IU-[facility] informa informa informa 2012 tion in tion in tion in 9:59 PM source source source data data data HCV RNA Not Not No No No Sep 18 Detecte Detecte informa informa informa 2013 Interpr d d tion in tion in tion in 9:59 PM etation source source source data data data EER HCV See No No No To Sep 18 RNA Note informa informa informa downloa 2013 Quant tion in tion in tion in d an 9:59 PM RT-PCR- source source source enhance [facility] data data data d report for this test go to:\\.br \\https: //erpt. [employer]\\.b r\\UserN allen=8n* YT7\\.br \\Passwo rd=4Ck? !7Kj Auto Diff Observa Value Referen Units Interpr Notes Date tion ce etation Range Neutrop 40.6 No % No No Sep 16 hils informa informa informa 2012 [#/volu tion in tion in tion in 3:00 PM me] in source source source Blood data data data by Automat ed count Lymphoc 49.7 No % No No Sep 16 ytes informa informa informa 2012 [#/volu tion in tion in tion in 3:00 PM me] in source source source Blood data data data by Automat ed count Monocyt 7.1 No % No No Sep 16 es informa informa informa 2012 [#/volu tion in tion in tion in 3:00 PM me] in source source source Blood data data data by Automat ed count Eos 1.9 No % No No Sep 16 Percent informa informa informa 2012 tion in tion in tion in 3:00 PM source source source data data data Baso 0.7 No % No No Sep 16 Percent informa informa informa 2012 tion in tion in tion in 3:00 PM source source source data data data Neut# 0.9 1.8 - x10(3)/ Low No Sep 16 7.7 mcL informa 2012 tion in 3:00 PM source data Lymph# 1.1 0.6 - x10(3)/ No No Sep 16 4.8 mcL informa informa 2012 tion in tion in 3:00 PM source source data data [place]# 0.2 0.0 - x10(3)/ No No Sep 16 1.3 mcL informa informa 2012 tion in tion in 3:00 PM source source data data Eos# 0.0 0.0 - x10(3)/ No No Sep 16 0.5 mcL informa informa 2012 tion in tion in 3:00 PM source source data data Baso# 0.0 0.0 - x10(3)/ No No Sep 16 0.2 mcL informa informa 2012 tion in tion in 3:00 PM source source data data Diff Observa Value Referen Units Interpr Notes Date tion ce etation Range Neutrop 3 0 - 10 % No No Sep 16 hils.ba informa informa 2013 nd tion in tion in 3:00 PM form/10 source source 0 data data leukocy ghassan in Blood by Manual count Atyp 6 0 - 5 % High No Sep 16 Lymph informa 2012 tion in 3:00 PM source data RBC Normal No No No No Sep 16 Morph informa informa informa informa 2013 tion in tion in tion in tion in 3:00 PM source source source source data data data data Aniso Slight No No No No Sep 16 informa informa informa informa 2013 tion in tion in tion in tion in 3:00 PM source source source source data data data data Poik Moderat No No No No Sep 16 e informa informa informa informa 2013 tion in tion in tion in tion in 3:00 PM source source source source data data data data Polychr Slight No No No No Sep 16 om informa informa informa informa 2013 tion in tion in tion in tion in 3:00 PM source source source source data data data data Hypochr Moderat No No No No Sep 16 om e informa informa informa informa 2013 tion in tion in tion in tion in 3:00 PM source source source source data data data data Ovalocy Moderat No No No No Sep 16 te e informa informa informa informa 2013 tion in tion in tion in tion in 3:00 PM source source source source data data data data Hepatic Pa Observa Value Referen Units Interpr Notes Date tion ce etation Range Protein 7.7 6.0 - gm/dL No No Sep 16 8.2 informa informa 2013 [Mass/v tion in tion in 1:21 PM olume] source source in data data Serum or Plasma Albumin 4.3 3.5 - gm/dL No No Sep 16 4.5 informa informa 2013 [Mass/v tion in tion in 1:21 PM olume] source source in data data Serum or Plasma Bilirub 0.0 0.0 - mg/dL No No Sep 16 in.dire 0.4 informa informa 2013 ct tion in tion in 1:21 PM [Mass/v source source olume] data data in Serum or Plasma Bilirub 0.7 0.1 - mg/dL No No Sep 16 in.tota 1.3 informa informa 2013 l tion in tion in 1:21 PM [Mass/v source source olume] data data in Serum or Plasma ASPARTA 39 14 - 36 IU/L High No Sep 16 TE informa 2013 AMINOTR tion in 1:21 PM ANSFERA source SE data Alanine 34 6 - 60 IU/L No No Sep 16 informa informa 2013 aminotr tion in tion in 1:21 PM ansfera source source se data data [Enzyma tic activit y/volum e] in Serum or Plasma Alkalin 107 41 - IU/L No No Sep 16 e 119 informa informa 2013 phospha tion in tion in 1:21 PM tase source source [Enzyma data data tic activit y/volum e] in Serum or Plasma CBC Observa Value Referen Units Interpr Notes Date tion ce etation Range LEUKOCY 2.3 4.0 - x10(3)/ Low No Sep 16 GHASSAN 11.0 mcL informa 2013 tion in 1:13 PM source data Erythro 3.91 3.80 - x10(6)/ No No Sep 16 cytes 5.10 mcL informa informa 2013 [#/volu tion in tion in 1:13 PM me] in source source Blood data data by Automat ed count Hemoglo 11.7 12.0 - gm/dL Low No Sep 16 bin 15.6 informa 2013 [Mass/v tion in 1:13 PM olume] source in data Blood Hematoc 35.3 35.7 - % Low No Sep 16 rit 45.9 informa 2013 [Volume tion in 1:13 PM source Fractio data n] of Blood by Automat ed count Erythro 90.1 82.5 - fL No No Sep 16 cyte 99.8 informa informa 2013 mean tion in tion in 1:13 PM corpusc source source ular data data volume [Entiti c volume] by Automat ed count Erythro 29.9 27.0 - pg No No Sep 16 cyte 34.3 informa informa 2013 mean tion in tion in 1:13 PM corpusc source source ular data data hemoglo bin [Entiti c mass] by Automat ed count Erythro 33.2 32.1 - gm/dL No No Sep 16 cyte 35.3 informa informa 2013 mean tion in tion in 1:13 PM corpusc source source ular data data hemoglo bin concent ration [Mass/v olume] by Automat ed count Erythro 19.0 11.5 - % High No Sep 16 cyte 15.0 informa 2013 distrib tion in 1:13 PM ution source width data [Ratio] by Automat ed count Platele 145 144 - x10(3)/ No No Sep 16 ts 423 mcL informa informa 2012 [#/volu tion in tion in 1:13 PM me] in source source Blood data data by Automat ed count MPV 7.8 6.8 - fL No No Sep 16 10.8 informa informa 2012 tion in tion in 1:13 PM source source data data Auto Diff Observa Value Referen Units Interpr Notes Date tion ce etation Range Neutrop 52.4 No % No No Sep 3 hils informa informa informa 2012 [#/volu tion in tion in tion in 2:19 PM me] in source source source Blood data data data by Automat ed count Lymphoc 37.9 No % No No Sep 3 ytes informa informa informa 2012 [#/volu tion in tion in tion in 2:19 PM me] in source source source Blood data data data by Automat ed count Monocyt 7.6 No % No No Sep 3 es informa informa informa 2012 [#/volu tion in tion in tion in 2:19 PM me] in source source source Blood data data data by Automat ed count Eos 1.7 No % No No Sep 3 Percent informa informa informa 2012 tion in tion in tion in 2:19 PM source source source data data data Baso 0.4 No % No No Sep 3 Percent informa informa informa 2013 tion in tion in tion in 2:19 PM source source source data data data Neut# 1.3 1.8 - x10(3)/ Low No Sep 3 7.7 mcL informa 2012 tion in 2:19 PM source data Lymph# 0.9 0.6 - x10(3)/ No No Sep 3 4.8 mcL informa informa 2013 tion in tion in 2:19 PM source source data data [place]# 0.2 0.0 - x10(3)/ No No Sep 3 1.3 mcL informa informa 2013 tion in tion in 2:19 PM source source data data Eos# 0.0 0.0 - x10(3)/ No No Sep 3 0.5 mcL informa informa 2013 tion in tion in 2:19 PM source source data data Baso# 0.0 0.0 - x10(3)/ No No Sep 3 0.2 mcL informa informa 2013 tion in tion in 2:19 PM source source data data Diff Observa Value Referen Units Interpr Notes Date tion ce etation Range Aniso Slight No No No No Sep 3 informa informa informa informa 2013 tion in tion in tion in tion in 2:19 PM source source source source data data data data Poik Slight No No No No Sep 3 informa informa informa informa 2013 tion in tion in tion in tion in 2:19 PM source source source source data data data data Macrocy Occasio No No No No Sep 3 te nal informa informa informa informa 2013 tion in tion in tion in tion in 2:19 PM source source source source data data data data Ovalocy Occasio No No No No Sep 3 te nal informa informa informa informa 2013 tion in tion in tion in tion in 2:19 PM source source source source data data data data Teardro Occasio No No No No Sep 3 p Cell nal informa informa informa informa 2013 tion in tion in tion in tion in 2:19 PM source source source source data data data data CBC Observa Value Referen Units Interpr Notes Date tion ce etation Range LEUKOCY 2.5 4.0 - x10(3)/ Low No Sep 3 GHASSAN 11.0 mcL informa 2012 tion in 2:19 PM source data Erythro 3.35 3.80 - x10(6)/ Low No Sep 3 cytes 5.10 mcL informa 2013 [#/volu tion in 2:19 PM me] in source Blood data by Automat ed count Hemoglo 10.0 12.0 - gm/dL Low No Sep 3 bin 15.6 informa 2012 [Mass/v tion in 2:19 PM olume] source in data Blood Hematoc 30.0 35.7 - % Low No Sep 3 rit 45.9 informa 2012 [Volume tion in 2:19 PM source Fractio data n] of Blood by Automat ed count Erythro 89.4 82.5 - fL No No Sep 3 cyte 99.8 informa informa 2013 mean tion in tion in 2:19 PM corpusc source source ular data data volume [Entiti c volume] by Automat ed count Erythro 29.8 27.0 - pg No No Sep 3 cyte 34.3 informa informa 2012 mean tion in tion in 2:19 PM corpusc source source ular data data hemoglo bin [Entiti c mass] by Automat ed count Erythro 33.3 32.1 - gm/dL No No Sep 3 cyte 35.3 informa informa 2012 mean tion in tion in 2:19 PM corpusc source source ular data data hemoglo bin concent ration [Mass/v olume] by Automat ed count Erythro 20.2 11.5 - % High No Sep 3 cyte 15.0 informa 2012 distrib tion in 2:19 PM ution source width data [Ratio] by Automat ed count Platele 110 144 - x10(3)/ Low No Sep 3 ts 423 mcL informa 2012 [#/volu tion in 2:19 PM me] in source Blood data by Automat ed count MPV 8.4 6.8 - fL No No Sep 3 10.8 informa informa 2013 tion in tion in 2:19 PM source source data data Hepatic Pa Observa Value Referen Units Interpr Notes Date tion ce etation Range Protein 6.6 6.0 - gm/dL No No Sep 3 8.2 informa informa 2012 [Mass/v tion in tion in 11:03 olume] source source PM in data data Serum or Plasma Albumin 3.8 3.5 - gm/dL No No Sep 3 4.5 informa informa 2012 [Mass/v tion in tion in 11:03 olume] source source PM in data data Serum or Plasma Bilirub 0.4 0.0 - mg/dL No No Sep 3 in.dire 0.4 informa informa 2012 ct tion in tion in 11:03 [Mass/v source source PM olume] data data in Serum or Plasma Bilirub 0.6 0.1 - mg/dL No No Sep 3 in.tota 1.3 informa informa 2012 l tion in tion in 11:03 [Mass/v source source PM olume] data data in Serum or Plasma ASPARTA 33 14 - 36 IU/L No No Sep 3 TE informa informa 2013 AMINOTR tion in tion in 11:03 ANSFERA source source PM SE data data Alanine 36 6 - 60 IU/L No No Sep 3 informa informa 2012 aminotr tion in tion in 11:03 ansfera source source PM se data data [Enzyma tic activit y/volum e] in Serum or Plasma Alkalin 83 41 - IU/L No No Sep 3 e 119 informa informa 2012 phospha tion in tion in 11:03 tase source source PM [Enzyma data data tic activit y/volum e] in Serum or Plasma HepC Qnt-[facility] Observa Value Referen Units Interpr Notes Date tion ce etation Range Hepatit <1.6 No log_IU No INTERPR Oct 31 is C informa informa ETIVE 2013 RNA tion in tion in INFORMA 5:45 PM source source TION: data data Hepatit is C Virus RNA\\.br \\Quanti tative Real-Ti me PCR(log IU/mL)\\ .br\\\\.b r\\The quantit ative range of this assay is 1.6 - 7.8 log IU/mL\\. br\\(43- 69,000, 000 IU/mL). \\.br\\Th e limit of detecti on (LOD) of this assay for all\\.br \\genoty pes is 18 IU/mL (1.2 log IU/mL). \\.br\\Th e limit of detecti on (LOD) of this assay for genotyp e I\\.br\\i s 7.1 IU/mL (0.85 log IU/mL). \\.br\\Th tabitha LOD values do not apply to diluted specime ns.\\.br \\An interpr etation of "Not Detecte d"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
--- OUTSIDE RECORDS SUMMARY | 2016-07-06 16:32 | External Medical Summary Rpt ---
[...] using the Aptima Combo 2 assay from [employer].\\.br \\A negativ e result does not [...] this test were validat ed by [facility] are laborat ory. This assay [...] ed and validat ed by the [facility] are laborat ory. Detaile d [...] in 11:02 source source PM data data Meade# 0.5 0.0 - x10(3)/ No No Oct [...] Date tion ce etation Range Fax to [phone] Hepatit Negativ Negativ No No No Jun [...] (>= 5, Archite ct Anti-HC V). [facility] are Laborat ory recomme nds collect ing a new specime n and testing for Hepatit is C RNA Quantit ative PCR to confirm positiv ity and provide a baselin e viral load for monitor ing treatme nt efficac y. Hemogram Observa Value Referen Units Interpr Notes Date tion ce etation Range Fax to [phone] LEUKOCY 8.0 4.0 - x10(3)/ No No [...] in 9:40 AM source source data data Meade# 0.4 0.0 - x10(3)/ No No Nov [...] x10(3)/ No No Nov 1 GHASSAN 11.0 [facility] informa informa 2014 tion in tion in 9:40 AM source source data data Erythro 4.74 3.80 - x10(6)/ No No Nov 1 cytes 5.10 [facility] informa informa 2014 [#/volu tion in [...] 's informa tion was entered into a [employer]fire system with a\\.br\\t arget\\. br\\due date for [...] Test Kit by RT-PCR. \\.br\\Pe rformed at: [facility]\\.br\\ [facility] e[facility], [address]\\.br \\ [place] [facility] [place] [address] Hep Prf-Ac Observa Value Referen Units Interpr [...] (>= 5, Archite ct Anti-HC V). [facility] are Laborat ory recomme nds [...] in 12:40 source source PM data data Meade# 0.3 0.0 - x10(3)/ No No Mar [...] 9:18 PM RT-PCR- source source source enhance [employer] data data data d report for this test go to:\\.br \\https: //erpt. [employer]\\.b r\\UserN allen=7o= WQ+5\\.b r\\Passw ord=B+f 5*6Kz Hepatic [...] in 3:15 PM source source data data Meade# 0.2 0.0 - x10(3)/ No No Apr [...] in 2:01 PM source source data data Meade# 0.2 0.0 - x10(3)/ No No Sep [...] for this test go to:\\.br \\https: //erpt. [employer]\\.b r\\UserN allen=8n* YT7\\.br \\Passwo rd=4Ck? !7Kj Auto [...] in 3:00 PM source source data data Meade# 0.2 0.0 - x10(3)/ No No Sep [...] in 2:19 PM source source data data Meade# 0.2 0.0 - x10(3)/ No No Sep [...] for this test go to:\\.br \\https: //erpt. [employer]\\.b r\\UserN allen=gJ* 5!7Ka\\. br\\Pass word=Hi 7*?Ya9 Diff [...] in 2:30 PM source source data data Meade# 0.1 0.0 - x10(3)/ No No Aug [...] in 11:01 source source AM data data Meade# 0.2 0.0 - x10(3)/ No No Sep [...] paramet ers were obtaine d in the [facility] ientati on.Exam ination demonst rates no [...] Further assessm ent canbe obtaine d ifini [facility] indicat ed with dedicat ed exam.IM [...] paramet ers were obtaine d in the [facility] axial[facility] ientati on.Ther e is anterio r [...]
--- NOTE | 2016-07-06 16:39 | Emergency Room Report ---
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 N Clinical Suspician of Infection? N Mental Status: 1 - Regular (Normal Baseline) Sepsis Risk:Low Sepsis Risk Have you (or family members/close friends) recently traveled outside the [place]? N If Yes, where/when: Have you had exposure to infectious disease within the past month? N TB? Other? Specify: Source patient, RN notes reviewed, family, RN/MD Exam Limitations no limitations Comment This is a 41-year-old female patient presenting to the emergency room with LEFT face pain and LEFT face swelling since last night. Patient's boyfriend advised that she has been up ALL night, tossing and turning in pain, with her LEFT swelling/face. Patient denies any fever, chills, difficulty swallowing, or any difficulty speaking. Patient is not a diabetic, she is not immunosuppressed. ALLERGIES Coded Allergies: No Known Allergies (07/06/16) Home Medications Reported Medications VALACYCLOVIR HCL (Valacyclovir) 500 MG PO DAILY #30 Fluoxetine Hcl 40 MG PO DAILY #60 History Medical History General CAD? No Angina: No [place]: No Hypertension? No Hyperlipidemia? No CHF? No DVT? No PE? No COPD? No Asthma? No Anemia? No GERD? No Gastric ulcers? No GI Bleed? No Hernia? No Thyroid Problems? No Hypothyroidism? No CVA? No Seizures? No Diabetes? No Renal Insuffiency? No End Stage Renal Disease? No UTI? No Stones? No GB Disease: No Nephritic Syndrome? No Asplenia? No Hepatitis? No Sickle Cell Disease? No Arthritis? No Migraines? No Cataracts? No Glaucoma? No MRSA? No HIV? No TB? No Anxiety? No Depression? Yes Cancer? No More? 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 Physical Exam Vital Signs Vital Signs Date Time Temp Pulse Resp B/P Pulse O2 O2 Flow FiO2 Ox Delivery Rate 07/06 1820 91 18 149/99 100 07/06 1731 87 18 116/74 100 07/06 1450 98.9 91 18 124/80 100 General Appearance normal appearance, WD/WN, moderate distress Ear, Nose, Throat hearing grossly normal, LEFT face swelling, warm, erythematous, tender to touch LEFT maxillary teeth with previous dental work Neck normal inspection, non-tender, supple, full range of motion Respiratory Status Yes: trachea midline, chest symmetrical, non tender chest. No: respiratory distress. Lung Sounds bilateral: normal breath sounds, lungs clear. Cardiovascular normal exam, regular rate/rhythm, no peripheral edema, no gallop, no JVD, no murmur, no rub, normal peripheral pulses Gastrointestinal normal bowel sounds, normal exam, non tender, soft, no organomegaly Extremities non-tender, normal range of motion, normal inspection Neurologic alert, blue crabber II-XII nml as tested, normal exam, oriented x 3 Mental status normal mood/affect Skin warm/dry, LEFT cheek swollen, tender to touch, erythematous, warm, extending into the LEFT lower eyelid Lymphatic no adenopathy Medical Decision Making LABS/Meds/Orders Pt receiving controlled substance in ED? No Comment 18:25-advised patient of results, also the need to consult with the maxillofacial surgeon. 18:35-call initiated with [facility] regarding possible transfer. I have requested to speak to the maxillofacial surgeon security consultant. I was put on hold, dr. [place] mane. 18:45-case d/w Dr Elaine, advised of patient's condition, onset of symptoms, CT scan findings, physical exam, ED course. This patient is not a diabetic and she is not immunosuppressed, based on patient's onset of symptoms, the massive facial surgeon recommended patient to be discharged home tonight on pain medications and antibiotics, and to follow-up with his office tomorrow morning at 9:30 AM. Results/Orders Laboratory Tests 07/06/16 1519: Sodium 142, Potassium 4.7, Chloride 107, Carbon Dioxide 31, BUN 6 L, Creatinine 0.7, Estimated Creat Clear 115, Estimated GFR (MDRD) 93, Glucose 86, Calcium 8.4 L, Total Bilirubin 0.4, AST 33, ALT 46, Alkaline Phosphatase 82, Total Protein 6.8, Albumin 3.0 L, Globulin 3.8 H, Albumin/Globulin Ratio 0.8 L, WBC 7.0, RBC 4.68, Hgb 11.9 L, Hct 38.7, MCV 82.8, RDW 14.6, Plt Count 276, MPV 6.6 L, Gran % 70.7, Gran # 5.0, Lymphocytes % 21.1, Monocytes % 5.0, Eosinophils % 2.9, Basophils % 0.3, Lymphocytes # 1.5, Monocytes # 0.4, Eosinophils # 0.2, Basophils # 0.0, PUBS MCHC 30.8 L, MCH 25.5 L Current Medication Orders Sig/Tamir Start time Last Medication Dose Route Stop Time Status Admin Clindamycin HCl 900 MG ONCE ONE 07/06 1845 DCr PO 07/06 1846 Ampicillin/Sulbactam/ 3 GM ONCE ONE 07/06 1815 DC 07/06 Sodium Chlorid IV 07/06 184 1819 Sodium Chloride 100 ML Ampicillin Sodium/ 0 .STK-MED ONE 07/06 181 DC Sulbactam Sodium IV Sodium Chloride 100 ML .STK-MED ONE 07/06 1810 DC IV Iopamidol 100 ML ONCE ONE 07/06 1745 UNV 07/06 IV 07/06 1746 1743 Sodium Chloride 10 ML ONCE ONE 07/06 1745 UNV 07/06 IV 07/06 1746 1743 Diphenhydramine HCl 25 MG ONCE ONE 07/06 1615 CAN IV 07/06 1616 Methylprednisolone 125 MG ONCE ONE 07/06 1615 CAN Sodium Succinate IV 07/06 1616 Sodium Chloride 10 ML PRN PRN 07/06 1500 AC IV 07/07 1457 Orders Procedure Date/time Status CT MAXILLOFACIAL W/CONTRAST 07/06 1715 Active SERUM , QUAL 07/[address] SCAN REQUEST 07/06 1612 Complete IV SALINE LOCK 07/06 1457 Active CBC WITH AUTO DIFF 07/06 145 Complete CHEM 12 PROFILE 07/06 1457 Complete XRAY/CT/US XRAY/CT/US CT LEFT maxillary dental abscess which has extended through the lateral cortex. The 40 mm adjacent soft tissue abscess. There is a secondary facial and periorbital cellulitis, with reactive LEFT submandibular adenopathy. CT scan was read by Dr. Cristina Perez at 5:59 PM EST. Departure Departure Time of Disposition 1835 Disposition DC Home or Self Care(routine) Clinical Impression Primary Impression: Dental abscess Secondary Impressions: Cellulitis, face Condition STABLE Patient Instructions DI for Tooth Abscess, DI for Tooth Decay Additional Instructions Please take the medications prescribed as prescribed. Please follow up with Dr Elaine (maxillofacial surgeon) tomorrow morning at 09: 30am at the [facility], 5th floor, phone # [phone]. Please bring the envelope provided to you to a day, containing the CD, radiology report , as well as labwork and ER notes. Discharge Counseling Counseled pt/family regarding diagnosis, test results, medications/RX, home care, follow up needs Comment Please take the medications prescribed as prescribed. Please follow up with Dr Elaine (maxillofacial surgeon) tomorrow morning at 09: 30am at the [facility], 5th floor, phone # [phone]. Please bring the envelope provided to you to a day, containing the CD, radiology report , as well as labwork and ER notes. Prescriptions Current Visit Scripts Amoxicillin/Potassium Clav (Augmentin 875-125 Tablet) 1 EACH PO BID #20 TAB Clindamycin Hcl (Clindamycin 300MG) 300 MG PO QID #40 CAP ED Critical Care Critical Care No at 1914
--- NOTE | 2016-07-06 16:39 | Emergency Room Report ---
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 N Clinical Suspician of Infection? N Mental Status: 1 - Regular (Normal Baseline) Sepsis Risk:Low Sepsis Risk Have you (or family members/close friends) recently traveled outside the [place]? N If Yes, where/when: Have you had exposure to infectious disease within the past month? N TB? Other? Specify: Source patient, RN notes reviewed, family, RN/MD Exam Limitations no limitations Comment This is a 41-year-old female patient presenting to the emergency room with LEFT face pain and LEFT face swelling since last night. Patient's boyfriend advised that she has been up ALL night, tossing and turning in pain, with her LEFT swelling/face. Patient denies any fever, chills, difficulty swallowing, or any difficulty speaking. Patient is not a diabetic, she is not immunosuppressed. ALLERGIES Coded Allergies: No Known Allergies (07/06/16) Home Medications Reported Medications VALACYCLOVIR HCL (Valacyclovir) 500 MG PO DAILY #30 Fluoxetine Hcl 40 MG PO DAILY #60 History Medical History General CAD? No Angina: No [place]: No Hypertension? No Hyperlipidemia? No CHF? No DVT? No PE? No COPD? No Asthma? No Anemia? No GERD? No Gastric ulcers? No GI Bleed? No Hernia? No Thyroid Problems? No Hypothyroidism? No CVA? No Seizures? No Diabetes? No Renal Insuffiency? No End Stage Renal Disease? No UTI? No Stones? No GB Disease: No Nephritic Syndrome? No Asplenia? No Hepatitis? No Sickle Cell Disease? No Arthritis? No Migraines? No Cataracts? No Glaucoma? No MRSA? No HIV? No TB? No Anxiety? No Depression? Yes Cancer? No More? 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 Physical Exam Vital Signs Vital Signs Date Time Temp Pulse Resp B/P Pulse O2 O2 Flow FiO2 Ox Delivery Rate 07/06 1820 91 18 149/99 100 07/06 1731 87 18 116/74 100 07/06 1450 98.9 91 18 124/80 100 General Appearance normal appearance, WD/WN, moderate distress Ear, Nose, Throat hearing grossly normal, LEFT face swelling, warm, erythematous, tender to touch LEFT maxillary teeth with previous dental work Neck normal inspection, non-tender, supple, full range of motion Respiratory Status Yes: trachea midline, chest symmetrical, non tender chest. No: respiratory distress. Lung Sounds bilateral: normal breath sounds, lungs clear. 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 No Comment 18:25-advised patient of results, also the need to consult with the maxillofacial surgeon. 18:35-call initiated with [facility] regarding possible transfer. I have requested to speak to the maxillofacial surgeon concession supervisor. I was put on hold, dr. [place] mane. 18:45-case d/w Dr Elaine, advised of patient's condition, onset of symptoms, CT scan findings, physical exam, ED course. This patient is not a diabetic and she is not immunosuppressed, based on patient's onset of symptoms, the massive facial surgeon recommended patient to be discharged home tonight on pain medications and antibiotics, and to follow-up with his office tomorrow morning at 9:30 AM. Results/Orders Laboratory Tests 07/06/16 1519: Sodium 142, Potassium 4.7, Chloride 107, Carbon Dioxide 31, BUN 6 L, Creatinine 0.7, Estimated Creat Clear 115, Estimated GFR (MDRD) 93, Glucose 86, Calcium 8.4 L, Total Bilirubin 0.4, AST 33, ALT 46, Alkaline Phosphatase 82, Total Protein 6.8, Albumin 3.0 L, Globulin 3.8 H, Albumin/Globulin Ratio 0.8 L, WBC 7.0, RBC 4.68, Hgb 11.9 L, Hct 38.7, MCV 82.8, RDW 14.6, Plt Count 276, MPV 6.6 L, Gran % 70.7, Gran # 5.0, Lymphocytes % 21.1, Monocytes % 5.0, Eosinophils % 2.9, Basophils % 0.3, Lymphocytes # 1.5, Monocytes # 0.4, Eosinophils # 0.2, Basophils # 0.0, PUBS MCHC 30.8 L, MCH 25.5 L Current Medication Orders Sig/Tamir Start time Last Medication Dose Route Stop Time Status Admin Clindamycin HCl 900 MG ONCE ONE 07/06 1845 DCr PO 07/06 1846 Ampicillin/Sulbactam/ 3 GM ONCE ONE 07/06 1815 DC 07/06 Sodium Chlorid IV 07/06 184 1819 Sodium Chloride 100 ML Ampicillin Sodium/ 0 .STK-MED ONE 07/06 181 DC Sulbactam Sodium IV Sodium Chloride 100 ML .STK-MED ONE 07/06 1810 DC IV Iopamidol 100 ML ONCE ONE 07/06 1745 UNV 07/06 IV 07/06 1746 1743 Sodium Chloride 10 ML ONCE ONE 07/06 1745 UNV 07/06 IV 07/06 1746 1743 Diphenhydramine HCl 25 MG ONCE ONE 07/06 1615 CAN IV 07/06 1616 Methylprednisolone 125 MG ONCE ONE 07/06 1615 CAN Sodium Succinate IV 07/06 1616 Sodium Chloride 10 ML PRN PRN 07/06 1500 AC IV 07/07 1457 Orders Procedure Date/time Status CT MAXILLOFACIAL W/CONTRAST 07/06 1715 Active SERUM , QUAL 07/[address] SCAN REQUEST 07/06 1612 Complete IV SALINE LOCK 07/06 1457 Active CBC WITH AUTO DIFF 07/06 145 Complete CHEM 12 PROFILE 07/06 1457 Complete XRAY/CT/US XRAY/CT/US CT LEFT maxillary dental abscess which has extended through the lateral cortex. The 40 mm adjacent soft tissue abscess. There is a secondary facial and periorbital cellulitis, with reactive LEFT submandibular adenopathy. CT scan was read by Dr. Cristina Perez at 5:59 PM EST. Departure Departure Time of Disposition 1835 Disposition DC Home or Self Care(routine) Clinical Impression Primary Impression: Dental abscess Secondary Impressions: Cellulitis, face Condition STABLE Patient Instructions DI for Tooth Abscess, DI for Tooth Decay Additional Instructions Please take the medications prescribed as prescribed. Please follow up with Dr Elaine (maxillofacial surgeon) tomorrow morning at 09: 30am at the [facility], 5th floor, phone # [phone]. Please bring the envelope provided to you to a day, containing the CD, radiology report , as well as labwork and ER notes. Discharge Counseling Counseled pt/family regarding diagnosis, test results, medications/RX, home care, follow up needs Comment Please take the medications prescribed as prescribed. Please follow up with Dr Elaine (maxillofacial surgeon) tomorrow morning at 09: 30am at the [facility], 5th floor, phone # [phone]. Please bring the envelope provided to you to a day, containing the CD, radiology report , as well as labwork and ER notes. Prescriptions Current Visit Scripts Amoxicillin/Potassium Clav (Augmentin 875-125 Tablet) 1 EACH PO BID #20 TAB Clindamycin Hcl (Clindamycin 300MG) 300 MG PO QID #40 CAP ED Critical Care Critical Care No at 1914
--- OUTSIDE RECORDS SUMMARY | 2016-07-06 16:41 | External Medical Summary Rpt ---
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 /OSTEOPLA STY TIBIA&/FI BULA RADIOLOGI 20923 [facility] 1 PHYSICIAN RAL EXAMINATI S ON KNEE 1/[address] [place] [address] [facility] ABDOMEN & 1 PHYSICIAN [place] [address] [facility] 1 PHYSICIAN ASKILL SPINE W/O S MAR CONTRAST MATERIAL RADIOLOGI 79069 [facility] C 1 PHYSICIAN RAL EXAMINATI S ON TIBIA & FIBULA 2 VIEWS RADEX 04089 [facility] SHOULDER 1 PHYSICIAN RAL COMPLETE [place] [address] [place] [address] [facility] THORACIC 1 PHYSICIAN ASKILL SPINE W/O S MAR CONTRAST MATERIAL RADIOLOGI 38917 [facility] 1 PHYSICIAN RAL EXAMINATI [place] [address] [facility] HEAD/BRAI 1 PHYSICIAN ASKILL N W/O S MAR CONTRAST MATERIAL CT THORAX 21378 [facility]ICIAN RAL W/CONTRAS S T MATERIAL CT LUMBAR 49390 [facility] SPINE 1 PHYSICIAN ASKILL W/O S MAR CONTRAST MATERIAL AMB A0431 [facility] SERVICE 1 Y [facility] INC INC TRANSPORT [address] RADEX 95895 [facility] ANKLE 1 PHYSICIAN RAL COMPLETE S MINIMUM 3 VIEWS INITIAL 45898 [facility] 1 PHYSICIAN KATIE CARE/DAY S 70 MINUTES GROUND A0425 [facility] MILEAGE 1 [facility] PER FIRE DIS FIRE DIS STATUTE MILE AMBULANCE A0429 [facility] SERVICE 1 LINNETTE ANGLIN S FIRE DIS FIRE DIS EMERGENCY TRANSPORT AMB A0427 [facility] SERVICE 1 FIRE DEPT FIRE DEPT ALS EMERGENCY AMBULANCE AMBULANCE TRANSPORT LEVEL 1 GROUND A0425 [facility] MILEAGE 1 FIRE DEPT FIRE DEPT PER STATUTE AMBULANCE AMBULANCE MILE INJECTION 77527 WILLIE RUANO G 1 LINWOOD RUANO MD C [facility] NRV THERAPEUT 99653 [facility] IC 0 [facility] TIC/DX INJECTION SUBQ/IM RADEX 87713 [facility] SPINE 0 [facility] [address] [place] [address] [place] [address] [facility] HEAD/BRAI 0 PSYCHIATRIC W/O [facility] CONTRAST MATERIAL GROUND A0425 RO RO MILEAGE 0 CO CO PER AMBULANCE AMBULANCE STATUTE TAXIN TAXIN MILE IM ADM 12514 [facility]XS 1 VACCINE AMBULANCE A0429 RO RO SERVICE 0 CO CO BLS AMBULANCE AMBULANCE EMERGENCY TAXIN TAXIN TRANSPORT RADEX 48630 [place] CHARISSA, ANKLE 0 [facility]ICAL [facility] COMPLETE IMAGING MINIMUM 3 ASSOCIATE VIEWS S RADEX 52911 [place] CHARISSA, FOOT 0 MEDICAL [facility] COMPLETE IMAGING MINIMUM 3 ASSOCIATE VIEWS S RADEX 51130 RADIOLOGY HENRRY, ANKLE 0 MIGUE M COMPLETE ASSOCIATE MINIMUM 3 S PSC VIEWS INJECTION 65766 WILLIE RUANO, 0 Melissa RUANO SINGLE/ML MD WING T TRIGGER POINT 3/> MUSCLES INJECTION 42074 WILLIE RUANO 0 Melissa RUANO MD C [facility] NRV THERAPEUT 78549 WILLIE RUANO, IC 0 Melissa RUANO MD TIC/DX INJECTION SUBQ/IM INJECTION 92306 WILLIE RUANO, Melissa MORSE ANESTHETI MD WING C [facility] NRV INJECTION 52556 WILLIE RUANO, Melissa MORSE SINGLE/ML LLC T TRIGGER POINT 3/> MUSCLES ARTHROCEN 98219 WILLIE RUANO TESIS 9 Melissa RUANO ASPIR&/IN LLC J MAJOR JT/BURSA W/O US INJECTION 22474 WILLIE Torres 9 [place]IND[place], ANESTHEMA [employer] LLC C [facility] NRV INJECTION 63209 Nicki JAMES G A ANESTHETI LLC C [facility] NRV INJECTION 22300 WILLIE RUANO, Melissa MORSE SINGLE/ML LLC T TRIGGER POINT 3/> MUSCLES NJX 44579 SHEYLA STAPLETON, ANES&/STR 9 Ely ANNE-MARIE Negron D JT NRV MDPLC CRV/THRC 1 LVL NJX 43955 SHEYLA STAPLETON, ANES&/STR 9 Ely ANNE-MARIE Negron D JT NRV MDPLC CRV/THRC EA LVL FLUOR 40125 SHEYLA STAPLETON, NEEDLE/CA 9 Ely ANNE-MARIE Negron TH MDPLC SPINE/PAR ASPINAL DX/THER ADDON FLUOR 02161 SHEYLA SAMPSONON, NEEDLE/CA 9 Ely ANNE-MARIE Negron TH MDPLC SPINE/PAR ASPINAL DX/THER ADDON DSTRJ 19912 RODOLFO SEBASTIANT 9 Ely ANNE-MARIE Negron PVRT MDPLC FACET JT NRV CRV/THRC 1 LVL DSTRJ 94134 RODOLFO SEBASTIANT 9 NguyenNichole ANNE-MARIE Negron PVRT MDPLC FACET JT NRV CRV/THRC EA LVL DSTRJ 02874 SHABBIR SEBASTIANLYT 9 Ely ANNE-MARIE Negron PVRT MDPLC FACET JT NRV CRV/THRC EA LVL DSTRJ 63837 HIRAL SEBASTIAN 9 Ely ANNE-MARIE Negron PVRT MDPLC FACET JT NRV CRV/THRC 1 LVL FLUOR 11782 SHEYLA STAPLETON NEEDLE/CA 9 Nguyen. ANNE-MARIE Negron TH MDPLC SPINE/PAR ASPINAL DX/THER ADDON MODERATE 16106 JOY SEBASTIANATJ 9 E. ANNE-MARIE Negron SAME MDPLC PHYS/QHP 5/>YRS INIT 30 MIN INJECTION 99900 SHEYLA STAPLETON 9 Nguyen. ANNE-MARIE Negron ANESTHETI MDPLC C [facility] NRV MODERATE 60333 RADHA SEBASTIAN 9 E. ANNE-MARIE Negron SAME MDPLC PHYS/QHP EACH ADDL 15 MIN INJECTION 33112 SHEYLA STAPLETON 9 Ely Negron ANESTHETI MDPLC C [facility] NRV NJX 02703 VÍCTOR SEBASTIANS&/STR 9 Ely Negron D JT NRV MDPLC CRV/THRC EA LVL MODERATE 44775 RADHA SEBASTIAN 9 Nguyen. ANNE-MARIE Negron SAME MDPLC PHYS/QHP 5/>YRS INIT 30 MIN FLUOR 11322 LAMONTE SEBASTIAN/CA 9 Ely Negron TH MDPLC SPINE/PAR ASPINAL DX/THER [place]ON NJX 92262 VÍCTOR SEBASTIANS&/STR 9 Ely Negron D JT NRV MDPLC CRV/THRC 1 LVL BLOOD 89032 [facility] 9 MEDICAL G, SUE COMPLETE GROUP B AUTO&AUT[place]IFRNTL WBC NJX 08079 ANN RIVERA&/STR 9 Ely Guardado JT NRV MDPLC CRV/THRC 1 LVL FLUOR 45475 LAMONTE RIVERA/CA 9 Ely EDGAR MDPLC SPINE/PAR ASPINAL DX/THER ADDON MODERATE 84438 RADHA RIVERA 9 Ely Cedillo SAME MDPLC PHYS/QHP 5/>YRS INIT 30 MIN NJX 98395 VÍCTOR RIVERAS&/STR 9 Ely Guardado JT NRV MDPLC CRV/THRC EA LVL RADEX 12862 ANDRZEJ DONNELLY SPINE 9 [facility] LUM[facility] INC INC AL MINIMUM 4 VIEWS RADEX 51563 GRZEGORZ BALTAZAR, SPINE 9 MEDICAL CHRISTINE Powell THORACIC IMAGING 3 VIEWS ASSOCIATE S DSTRJ 39853 HIRAL SEBASTIAN 8 Ely Negron PVRT MDPLC FACET JT NRV CRV/THRC 1 LVL DSTRJ 59852 HIRAL SEBASTIAN 8 Ely Negron PVRT MDPLC FACET JT NRV CRV/THRC EA LVL FLUOR 79290 SHEYLA STAPLETON, NEEDLE/CA 8 Ely Negron TH MDPLC SPINE/PAR ASPINAL DX/[place] [address] FREE 8 [facility] THYROXINE [place] [address] THYROID 8 [facility] STIMULATI NG MEDICALCE MEDICALCE HORMONE NTER NTER TSH BLOOD [address] COUNT 8 [facility] COMPLETE AUTO&AUTO MEDICALCE MEDICALCE [place]X [address] SHEYLA STAPLETON ANES&/STR 8 Ely Guardado JT NRV MDPLC CRV/THRC 1 LVL NJX 41981 SHEYLA STAPLETON ANES&/STR 8 Ely Guardado JT NRV MDPLC CRV/THRC EA LVL FLUOR 38602 SHEYLA STAPLETON, NEEDLE/CA 8 Ely Negron TH MDPLC SPINE/PAR ASPINAL DX/THER ADDON FLUOR 58930 SHEYLA XIE NEEDLE/CA 8 Ely EDGAR MDPLC SPINE/PAR ASPINAL DX/THER ADDON NJX 30518 ANN RIVERA&/STR 8 Ely Guardado JT NRV MDPLC CRV/THRC EA LVL NJX 96447 SHEYLA XIE ANES&/STR 8 Ely Guardado JT NRV MDPLC CRV/THRC 1 LVL DSTRJ 78527 HIRAL RIVERA 8 NguyenNichole ANNE-MARIE CARRION Nguyen PVRT MDPLC FACET JT NRV CRV/THRC EA LVL DSTRJ 17121 HIRAL RIVERA 8 NguyenNichole ANNE-MARIE CARRION Nguyen PVRT MDPLC FACET JT NRV CRV/THRC 1 LVL FLUOR 75766 SHEYLA XIE, NEEDLE/CA 8 NguyenNichole ANNE-MARIE Cedillo TH MDPLC SPINE/PAR ASPINAL DX/THER ADDON RADIOLOGI 73750 [facility] 8 YELITZA CHEST 2 ASSOCIATE VIEWS S PSC FRONTAL&[place] NJX [address]259 SHEYLA STAPLETON ANES&/STR 8 Ely Guardado JT NRV MDPLC CRV/THRC 1 LVL NJX 70545 SHEYLA STAPLETON, ANES&/STR 8 Ely Guardado JT NRV MDPLC CRV/THRC EA LVL FLUOR 77291 SHEYLA STAPLETON, NEEDLE/CA 8 Ely Negron TH MDPLC SPINE/PAR ASPINAL DX/THER ADDON FLUOR 88409 SHEYLA STAPLETON, NEEDLE/CA 8 Ely Negron TH MDPLC SPINE/PAR ASPINAL DX/[place] NJX [address] SHEYLA STAPLETON, ANES&/STR 8 Ely Guardado JT NRV MDPLC CRV/THRC EA LVL NJX 98088 SHEYLA STAPLETON, ANES&/STR 8 Ely Guardado JT NRV MDPLC CRV/THRC 1 LVL RADEX 88262 [place] BALTAZAR, NASAL 8 MEDICAL CHRISTINE P BONES IMAGING COMPLETE ASSOCIATE MINIMUM [address] [place] [address] THYROID 8 [place] SENA NG MEDICALCE MEDICALCE HORMONE NTER NTER TSH COLLECTIO 97625 ANIA GERBER, N VENOUS 8 MEDICAL VIRAL BLOOD GROUP VENIPUNCT URE RADEX 78710 ANDRZEJ DONNELLY SHOULDER 8 [facility] COMPLETE INC INC MINIMUM 2 VIEWS ORTHOPANT 79200 ANDRZEJ DONNELLY OGRAM 8 [facility] INC INC RADEX 32473 [place] BALTAZAR, SPINE 8 MEDICAL CHRISTINE P CERVICAL IMAGING 6 OR MORE ASSOCIATE VIEWS S Encounters Encounter Start End Date Code Location Performer Type Date OFFICE 88957 [facility] 7 7 [place] T VISIT 15 PHYSICIAN MINUTES S EMERGENCY 69095 THE 7 7 [facility] T VISIT LOW/MODER SEVERITY HOSPITAL THE - 7 7 [facility] T OFFICE 67333 [facility] 7 7 [place] T VISIT 25 PHYSICIAN MINUTES S OFFICE 34493 [facility] 6 6 [place] ALEX T VISIT 15 PHYSICIAN MINUTES S OFFICE 26572 [facility] 6 6 [place] T VISIT 25 PHYSICIAN MINUTES S EMERGENCY 26525 TAM[facility]CRAY 6 6 EMERGENCY [facility] T VISIT PHYSICIAN MODERATE S SEVERITY [facility] ST - 5 5 [place] [facility] 11129 [facility] 5 5 [place] [facility] VISIT MODERATE [facility]VERITY [facility] - 5 5 [place] [facility] ST[facility] - 5 5 [place] [facility] EMERGENCY 60801 [facility] 5 5 [place] [facility] VISIT MODERATE SEVERITY HOSPITAL ST - 5 5 [place] [facility] T BEREAVEMENT PROGRAM COORDINATOR ST OFFICE 93559 SHAILA GARCIA [facility] 5 5 H T NEW 30 ORTHOPAE MINUTES EMERGENCY 32465 [facility] 3 3 MANUEL MANUEL [facility] T VISIT MODERATE SEVERITY OFFICE 47307 SCHFADUMO BROWN OUTPATIEN 3 3 THO THO T VISIT [address] - 3 3 [facility] - 3 3 [facility] ST - 3 3 [facility] OFFICE 35699 [facility] 3 3 THO THO T VISIT [address] - 3 3 [facility] ST - 3 3 [facility] OFFICE 75704 STEPHANIE BROWN OUTPATIEN 3 3 THO THO T VISIT [address] - 3 3 [facility] OFFICE 60149 [facility] 3 3 DI MAR DI MAR T VISIT 25 MINUTES OFFICE 59288 [facility] 3 3 ER MAT ER MAT T NEW 45 MINUTES HOSPITAL THE - 2 2 [facility] - 2 2 [facility] [address] [facility] MODERATE SEVERITY OFFICE 23642 BNIDU RUANO G OUTPATIEN 2 2 T VISIT 25 MINUTES OFFICE 06691 BINDU Torres OUTPATIEN 1 1 T VISIT 25 MINUTES OFFICE 21934 [facility] 1 Y T VISIT HOSPITAL 10 INC. MINUTES HOSPITAL UNIVERSIT - 1 1 Y [facility] T INC. OFFICE 63226 BINDU Torres OUTPATIEN 1 1 T VISIT 15 MINUTES EMERGENCY 06753 [facility] 1 1 PHYSICIAN MUSA [facility] S T VISIT HIGH/URGE NT SEVERITY HOSPITAL UNIVERSIT - 1 1 Y [facility] T INC. OFFICE 90242 [facility] 1 1 Y T VISIT HOSPITAL 10 INC. MINUTES EMERGENCY 78863 EMERGENCY [facility] 1 1 CARE BETTINA [facility] PHYS T VISIT [facility] HIGH/URGE NT SEVERITY OFFICE 56364 WILLIE Torres [facility] 1 1 BINDU, T VISIT MD WING 15 MINUTES HOSPITAL UNIVERSIT - 1 1 Y INPATIENT HOSPITAL INC. EMERGENCY 02806 EMERGENCY [facility] DEPT 1 1 CARE VISIT PHYS HIGH [facility] EMERGENCY [address] 0 0 [facility] T VISIT HIGH/URGE NT SEVERITY HOSPITAL ST - 0 0 [facility] T OFFICE 17892 WILLIE Torres OUTPATIEN 0 0 Jamil RUANO VISIT MD WING 25 MINUTES OFFICE 77771 ZAIDA JAMES 0 0 Melissa RUANO T VISIT MD WING 15 MINUTES HOSPITAL ANDRZEJ - 0 0 [facility] T OFFICE 40208 ZAIDA JAMES 0 0 Melissa RUANO T VISIT MD WING 25 MINUTES EMERGENCY 22082 [facility], 0 0 ARLENEHERVE Guardado [facility] MED CTR T VISIT HIGH/URGE NT SEVERITY HOSPITAL ST - 0 0 [facility] T OFFICE 81171 WILLIE RUANO OUTPATIEN 9 9 Melissa RUANO A T VISIT [facility] 15 MINUTES OFFICE 65181 WILLIE RUANO G OUTPATIEN 9 9 BINDU, T [facility]IT [facility] 25 MINUTES OFFICE 57613 WILLIE RUANO OUTPATIEN 9 9 [address] RUAN[address] T [facility]IT [facility] 25 MINUTES OFFICE 31710 [facility] 9 9 MEDICAL GSUE T VISIT GROUP B 25 MINUTES OFFICE 76732 [facility] 9 9 MEDICAL G, SUE T VISIT GROUP B 15 MINUTES HOSPITAL TECUMSEH - 9 9 [facility] T OFFICE 89753 ZAIDA SEBASTIAN 9 9 Ely KO T T VISIT MDPLC 10 MINUTES [facility]OS[facility]ITAL [facility] 8 8 [place] [facility] T MEDICALCE NTER OFFICE 42403 [facility] 8 8 MEDICAL SUE Torres T VISIT GROUP B 25 MINUTES [facility]OS[facility] 8 8 [facility] T OFFICE 09209 ZAIDA SEBASTIAN 8 8 Ely Negron T NEW 30 MDPLC MINUTES EMERGENCY 54580 ANDRZEJ 8 8 [facility] INC T VISIT MODERATE SEVERITY EMERGENCY 87063 ANDRZEJ VALENTINO, 8 8 [facility] T VISIT PROF SERV LOW/MODER SEVERITY HOSPITAL ANDRZEJ - 8 8 [facility] OUTPATI[facility] INC T OFFICE 41699 [facility] ZAIDA GERBER 8 8 MEDICAL VIRAL T VISIT GROUP 15 MINUTES HOSPITAL - 8 8 [place] OUTPATIEN T MEDICALCE NTER OFFICE 99833 [facility] ZAIDA [facility]ER[facility] 8 8 MEDICAL VIRAL T VISIT GROUP 25 MINUTES [facility] TECUMSEH - 8 8 [facility] OUTPATIEN INC T OFFICE 83384 [facility] ZAIDA GERBER 8 8 MEDICAL VIRAL T VISIT GROUP 15 MINUTES HOSPITAL ANDRZEJ - 8 [facility] OUTPATIEN INC T OFFICE 93482 [facility] ZAIDA GERBER 8 8 MEDICAL VIRAL T VISIT GROUP 25 MINUTES
--- OUTSIDE RECORDS SUMMARY | 2016-07-06 16:41 | External Medical Summary Rpt ---
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 MUSCLES INJECTION 68512 WILLIE RUANO 0 Melissa RUANO MD C [facility] NRV THERAPEUT 68110 WILLIE RUANO, IC 0 Melissa RUANO MD TIC/DX INJECTION SUBQ/IM INJECTION 55060 WILLIE RUANO, Melissa MORSE ANESTHETI MD WING C [facility] NRV INJECTION 52691 WILLIE RUANO, Melissa MORSE SINGLE/ML LLC T TRIGGER POINT 3/> MUSCLES ARTHROCEN 46468 WILLIE RUANO TESIS 9 Melissa RUANO ASPIR&/IN LLC J MAJOR JT/BURSA W/O US INJECTION 81504 WILLIE Torres 9 BINDU, ANESTHEMA [employer]ZO LLC C [facility] NRV INJECTION 94817 Nicki JAMES G A ANESTHETI LLC C [facility] NRV INJECTION 28820 WILLIE RUANO, Melissa MORSE SINGLE/ML LLC T TRIGGER POINT 3/> MUSCLES NJX 28517 SHEYLA STAPLETON, ANES&/STR 9 Ely ANNE-MARIE Negron D JT NRV MDPLC CRV/THRC 1 LVL NJX 42271 SHEYLA STAPLETON, ANES&/STR 9 Ely ANNE-MARIE Negron D JT NRV MDPLC CRV/THRC EA LVL FLUOR 41052 SHEYLA STAPLETON, NEEDLE/CA 9 Ely ANNE-MARIE Negron TH MDPLC SPINE/PAR ASPINAL DX/THER ADDON FLUOR 36769 SHEYLA SAMPSONON, NEEDLE/CA 9 Ely ANNE-MARIE Negron TH MDPLC SPINE/PAR ASPINAL DX/THER ADDON DSTRJ 37284 RODOLFO SEBASTIANT 9 Ely ANNE-MARIE Negron PVRT MDPLC FACET JT NRV CRV/THRC 1 LVL DSTRJ 13501 RODOLFO SEBASTIANT 9 NguyenNichole ANNE-MARIE Negron PVRT MDPLC FACET JT NRV CRV/THRC EA LVL DSTRJ 15354 SHABBIR SEBASTIANLYT 9 Ely ANNE-MARIE Negron PVRT MDPLC FACET JT NRV CRV/THRC EA LVL DSTRJ 53760 HIRAL SEBASTIAN 9 Ely ANNE-MARIE Negron PVRT MDPLC FACET JT NRV CRV/THRC 1 LVL FLUOR 35964 SHEYLA STAPLETON NEEDLE/CA 9 Nguyen. ANNE-MARIE Negron TH MDPLC SPINE/PAR ASPINAL DX/THER ADDON MODERATE 24561 JOY SEBASTIANATJ 9 E. ANNE-MARIE Negron SAME MDPLC PHYS/QHP 5/>YRS INIT 30 MIN INJECTION 50975 SHEYLA STAPLETON 9 Nguyen. ANNE-MARIE Negron ANESTHETI MDPLC C [facility] NRV MODERATE 70088 RADHA SEBASTIAN 9 E. ANNE-MARIE Negron SAME MDPLC PHYS/QHP EACH ADDL 15 MIN INJECTION 54388 SHEYLA STAPLETON 9 Ely Negron ANESTHETI MDPLC C [facility] NRV NJX 38031 VÍCTOR SEBASTIANS&/STR 9 Ely Negron D JT NRV MDPLC CRV/THRC EA LVL MODERATE 49289 RADHA SEBASTIAN 9 Nguyen. ANNE-MARIE Negron SAME MDPLC PHYS/QHP 5/>YRS INIT 30 MIN FLUOR 62903 LAMONTE SEBASTIAN/CA 9 Ely Negron TH MDPLC SPINE/PAR ASPINAL DX/THER ADDON NJX 13421 VÍCTOR SEBASTIANS&/STR 9 Ely Negron D JT NRV MDPLC CRV/THRC 1 LVL BLOOD 64006 [facility] 9 MEDICAL G, SUE COMPLETE GROUP B AUTO&AUTO DIFRNTL WBC NJX 02118 ANN RIVERA&/STR 9 Ely Guardado JT NRV MDPLC CRV/THRC 1 LVL FLUOR 11244 LAMONTE RIVERA/CA 9 Ely EDGAR MDPLC SPINE/PAR ASPINAL DX/THER ADDON MODERATE 84964 RADHA RIVERA 9 Ely Cedillo SAME MDPLC PHYS/QHP 5/>YRS INIT 30 MIN NJX 79026 VÍTCOR RIVERAS&/STR 9 Ely Guardado JT NRV MDPLC CRV/THRC EA LVL RADEX 58937 ANDRZEJ DONNELLY SPINE 9 [facility] INC AL MINIMUM 4 VIEWS RADEX 37169 GRZEGORZ BALTAZAR, SPINE 9 MEDICAL CHRISTINE Powell THORACIC IMAGING 3 VIEWS ASSOCIATE S DSTRJ 51642 HIRAL SEBASTIAN 8 Ely Negron PVRT MDPLC FACET JT NRV CRV/THRC 1 LVL DSTRJ 84695 HIRAL SEBASTIAN 8 Ely Negron PVRT MDPLC FACET JT NRV CRV/THRC EA LVL FLUOR 03378 SHEYLA STAPLETON, NEEDLE/CA 8 Ely Negron TH MDPLC SPINE/PAR ASPINAL DX/[place] [address] FREE 8 [facility] THYROXINE [place] [address] THYROID 8 [facility] STIMULATI NG MEDICALCE MEDICALCE HORMONE NTER NTER TSH BLOOD [address] COUNT 8 [facility] COMPLETE AUTO&AUTO MEDICALCE MEDICALCE [place]IFRNTL [place]TER [place]TER WBC NJX 72799 SHEYLA STAPLETON ANES&/STR 8 Ely Guardado JT NRV MDPLC CRV/THRC 1 LVL NJX 47465 SHEYLA STAPLETON ANES&/STR 8 Ely Guardado JT NRV MDPLC CRV/THRC EA LVL FLUOR 20413 SHEYLA STAPLETON, NEEDLE/CA 8 Ely Negron TH MDPLC SPINE/PAR ASPINAL DX/THER ADDON FLUOR 97924 SHEYLA XIE NEEDLE/CA 8 Ely EDGAR MDPLC SPINE/PAR ASPINAL DX/THER ADDON NJX 13501 ANN RIVERA&/STR 8 Ely Guardado JT NRV MDPLC CRV/THRC EA LVL NJX 48121 SHEYLA XIE ANES&/STR 8 Ely Guardado JT NRV MDPLC CRV/THRC 1 LVL DSTRJ 73852 HIRAL RIVERA 8 NguyenNichole ANNE-MARIE CARRION Nguyen PVRT MDPLC FACET JT NRV CRV/THRC EA LVL DSTRJ 94439 HIRAL RIVERA 8 NguyenNichole ANNE-MARIE CARRION Nguyen PVRT MDPLC FACET JT NRV CRV/THRC 1 LVL FLUOR 85182 SHEYLA XIE, NEEDLE/CA 8 NguyenNichole ANNE-MARIE Cedillo TH MDPLC SPINE/PAR ASPINAL DX/THER ADDON RADIOLOGI 34228 RADIOLOGY [facility], C EXAM 8 YELITZA CHEST 2 ASSOCIATE VIEWS S PSC FRONTAL&L ATERAL NJX 17032 SHEYLA STAPLETON ANES&/STR 8 Ely Guardado JT NRV MDPLC CRV/THRC 1 LVL NJX 79429 SHEYLA STAPLETON, ANES&/STR 8 Ely Guardado JT NRV MDPLC CRV/THRC EA LVL FLUOR 49416 SHEYLA STAPLETON, NEEDLE/CA 8 Ely Negron TH MDPLC SPINE/PAR ASPINAL DX/THER ADDON FLUOR 23207 SHEYLA STAPLETON, NEEDLE/CA 8 Ely Negron TH MDPLC SPINE/PAR ASPINAL DX/THER [place] NJX 83548 SHEYLA STAPLETON, ANES&/STR 8 Ely Guardado JT NRV MDPLC CRV/THRC EA LVL NJX 19025 SHEYLA STAPLETON, ANES&/STR 8 Ely Guardado JT NRV MDPLC CRV/THRC 1 LVL RADEX 26924 [place] BALTAZAR, NASAL 8 MEDICAL CHRISTINE P BONES IMAGING COMPLETE ASSOCIATE MINIMUM 3 [place] [address] THYROID 8 [place] SENA NG MEDICALCE MEDICALCE HORMONE NTER NTER TSH COLLECTIO 42514 ANIA GERBER, N VENOUS 8 MEDICAL VIRAL BLOOD GROUP VENIPUNCT URE RADEX 00813 ANDRZEJ DONNELLY SHOULDER 8 [facility] COMPLETE INC INC MINIMUM 2 VIEWS ORTHOPANT 23507 ANDRZEJ DONNELLY OGRAM 8 [facility] INC INC RADEX 05732 [place] BALTAZAR, SPINE 8 MEDICAL CHRISTINE P CERVICAL IMAGING 6 OR MORE ASSOCIATE VIEWS S Encounters Encounter Start End Date Code Location Performer Type Date OFFICE 86558 [facility] 7 7 [place] T VISIT 15 PHYSICIAN MINUTES S EMERGENCY 99482 THE 7 7 [facility] T VISIT LOW/MODER SEVERITY HOSPITAL THE - 7 7 [facility] T OFFICE 17025 [facility] 7 7 [place] T VISIT 25 PHYSICIAN MINUTES S OFFICE 97164 [facility] 6 6 [place] ALEX T VISIT 15 PHYSICIAN MINUTES S OFFICE 92977 [facility] 6 6 [place] T VISIT 25 PHYSICIAN MINUTES S EMERGENCY 65518 TAMMI MCCRAY 6 6 EMERGENCY [facility] T VISIT PHYSICIAN MODERATE S SEVERITY [facility] - 5 5 [facility] 33986 [facility] 5 5 [place] [facility] VISIT MODERATE [facility]VERITY [facility]OSPITAL ST[facility] - 5 5 [place] [facility] ST. - 5 5 [place] [facility] EMERGENCY 90055 [facility] 5 5 [place] [facility] VISIT MODERATE SEVERITY HOSPITAL ST - 5 5 [place] [facility] MED CTR T THEATRICAL DRESSER ST OFFICE 12008 SHAILA GARCIA [facility] 5 5 H T NEW 30 ORTHOPAE MINUTES EMERGENCY 26162 [facility] 3 3 MANUEL MANUEL [facility] T VISIT MODERATE SEVERITY OFFICE 57381 SCHFADUMO BROWN OUTPATIEN 3 3 THO THO T VISIT [address] - 3 [address] [facility] - 3 [address] [facility] - 3 3 [facility] OFF[facility] 07899 [facility] 3 3 THO THO T VISIT [address] - 3 3 [facility] - 3 3 [facility] 17017 STEPHANIE BROWN OUTPATIEN 3 3 THO THO T VISIT [address] - 3 3 [facility] OFF[facility] 84093 KAPRADEEPLAPU IFRAHPU [facility] 3 3 DI MAR DI MAR T VISIT 25 MINUTES OFFICE 47587 [facility] 3 3 ER MAT ER MAT T NEW 45 MINUTES HOSPITAL [facility] - 2 2 [facility] - 2 2 [facility] - 2 2 [facility] [address] [facility]EL [facility] MODERATE SEVERITY OFFICE 17675 BINDU RUANO G OUTPATIEN 2 2 T VISIT 25 MINUTES OFFICE 34821 BINDU Torres OUTPATIEN 1 1 T VISIT 25 MINUTES OFFICE 92056 [facility] 1 1 Y T VISIT HOSPITAL 10 INC. MINUTES HOSPITAL [facility]ERS[facility] - 1 1 [facility] T INC. OFFICE 71562 BINDU Torres OUTPATIEN 1 1 T VISIT 15 MINUTES EMERGENCY 29535 [facility] 1 1 PHYSICIAN [facility]USA [facility] S T VISIT HIGH/URGE NT SEVERITY HOSPITAL UNIVERSIT - 1 1 Y [facility] T INC. OFFICE 95804 [facility] 1 1 Y T VISIT HOSPITAL 10 INC. MINUTES EMERGENCY 96746 EMERGENCY [facility] 1 1 CARE BETTINA [facility] PHYS T VISIT [facility]THER[facility] HIGH/URGE NT SEVERITY OFFICE 95465 WILLIE Torres [facility] 1 1 BINDU, T VISIT MD WING 15 MINUTES HOSPITAL UNIVERSIT - 1 1 Y INPATIENT HOSPITAL INC. EMERGENCY 36806 EMERGENCY [facility] DEPT 1 1 CARE VISIT PHYS HIGH [facility] SEVER[facility]REAT [facility] EMERGENCY [address] ST 0 0 [facility] T VISIT HIGH/URGE NT SEVERITY HOSPITAL ST - 0 0 [facility] T OFFICE 46130 WILLIE Torres OUTPATIEN 0 0 Jamil RUANO VISIT MD WING 25 MINUTES OFFICE 03646 ZAIDA JAMES 0 0 Melissa RUANO T VISIT MD WING 15 MINUTES HOSPITAL ANDRZEJ - 0 0 [facility] T OFFICE 60347 ZAIDA JAMES 0 0 Melissa RUANO T VISIT MD WING 25 MINUTES EMERGENCY 40154 [facility], 0 0 ARLENEHERVE Guardado [facility] MED CTR T VISIT HIGH/URGE NT SEVERITY [facility]OSPITAL ST - 0 0 [facility] T OFFICE 91376 WILLIE RUANO OUTPATIEN 9 9 Melissa RUANO A T VISIT [facility] 15 MINUTES OFFICE 67960 WILLIE RUANO G OUTPATIEN 9 9 [place], T VISIT [facility] 25 MINUTES OFFICE 48369 WILLIE RUANO OUTPATIEN 9 9 Melissa RUANO T VISIT [facility] 25 MINUTES OFFICE 23885 [facility] 9 9 MEDICAL GSUE T VISIT GROUP B 25 MINUTES OFFICE 91283 [facility] 9 9 MEDICAL G, SUE T VISIT GROUP B 15 MINUTES HOSPITAL [place] - 9 9 [facility] T OFF[facility] 10239 ZAIDA SEBASTIAN 9 9 Ely KO T T VISIT MDPLC 10 MINUTES [facility] 8 8 [place] [facility] T MEDICALCE NTER OFFICE 66764 [facility] 8 8 MEDICAL SUE Torres T VISIT GROUP B 25 MINUTES HOSPITAL [facility] 8 8 [facility] T OFFICE 58156 ZAIDA SEBASTIAN 8 8 Ely Negron T NEW 30 MDPLC MINUTES EMERGENCY 03912 ANDRZEJ 8 8 [facility] INC T VISIT MODERATE SEVERITY EMERGENCY 07737 ANDRZEJ VALENTINO, 8 8 [facility] T VISIT PROF SERV LOW/MODER SEVERITY HOSPITAL ANDRZEJ - 8 8 [facility] OUTPAT[facility] T OFFICE 59396 [facility] ZAIDA GERBER 8 8 MEDICAL VIRAL T VISIT GROUP 15 MINUTES HOSPITAL - 8 8 [place] OUTPATIEN T MEDICALCE NTER OFFICE 80671 [facility] ZAIDA [facility] 8 8 MEDICAL VIRAL T VISIT GROUP 25 MINUTES [facility] [place] - 8 8 [facility] OUTPATIEN INC T OFFICE 95575 [facility] ZAIDA GERBER 8 8 MEDICAL VIRAL T VISIT GROUP 15 MINUTES HOSPITAL ANDRZEJ - 8 [facility] OUTPATI[facility] INC T OFFICE 32219 [facility] ZAIDA GERBER 8 8 MEDICAL VIRAL T VISIT GROUP 25 MINUTES
--- OUTSIDE RECORDS SUMMARY | 2016-07-06 16:51 | External Medical Summary Rpt ---
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 71525 WILLIE RUANO 0 Melissa RUANO A SINGLE/ML MD WING T TRIGGER POINT 3/> MUSCLES INJECTION 18445 WILLIE RUANO, 9 BINDU, G A SINGLE/ML MD WING T TRIGGER POINT 3/> MUSCLES INJECTION 98148 WILLIE RUANO, Melissa MORSE ANESTHETI [facility] C [facility] NRV ARTHROCEN 72368 WILLIE RUANO TESIS 9 Melissa RUANO ASPIR&/IN MD WING J MAJOR JT/BURSA W/O US INJECTION 20809 WILLIE Torres 9 BINDU, LINWOOD LAZO [facility] C [facility] NRV INJECTION 10780 Nicki JAMES G A ANESTHETI [facility] C [facility] NRV INJECTION 00073 WILLIE RUANO, Melissa MORSE SINGLE/ML MD WING T TRIGGER POINT 3/> MUSCLES FLUOR 70226 SHEYLA RISON, NEEDLE/CA 9 Ely XIE STEFANI Negron TH MDPLC SPINE/PAR ASPINAL [place]X [address]65 SHEYLA STAPLETON, ANES&/STR 9 ENichole ANNE-MARIE Negron D JT NRV MDPLC CRV/THRC 1 LVL NJX 43249 SHEYLA STAPLETON, ANES&/STR 9 Ely ANNE-MARIE Negron D JT NRV MDPLC CRV/THRC EA LVL DSTRJ 86020 SHEYLA STAPLETON NULYT 9 Ely XIE STEFANI Negron PVRT MDPLC FACET JT NRV CRV/THRC 1 LVL DSTRJ 81748 SHEYLA STAPLETON NULYT 9 Ely XIE STEFANI Negron PVRT MDPLC FACET JT NRV CRV/THRC EA LVL FLUOR 93612 SHEYLA RISON, NEEDLE/CA 9 Ely ANNE-MARIE Negron TH MDPLC SPINE/PAR ASPINAL DX/THER ADDON FLUOR 51096 SHEYLA RISON, NEEDLE/CA 9 Nguyen. XIE STEFANI Negron TH MDPLC SPINE/PAR ASPINAL DX/THER ADDON DSTRJ 68680 SHEYLA STAPLETON, NULYT 9 Ely ANNE-MARIE Negron PVRT MDPLC FACET JT NRV CRV/THRC 1 LVL DSTRJ 63216 HIRAL SEBASTIAN 9 Nguyen. ANNE-MARIE Negron PVRT MDPLC FACET JT NRV CRV/THRC EA LVL INJECTION 28265 Nicki SEBASTIAN ANESTHETI MDPLC C [facility] NRV MODERATE 87857 JOY SEBASTIANATJ 9 Nguyen. ANNE-MARIE Negron SAME MDPLC PHYS/QHP EACH ADDL 15 MIN MODERATE 66522 JOY SEBASTIANATLaura 9 E. ANNE-MARIE Negron SAME MDPLC PHYS/QHP 5/>YRS INIT 30 MIN MODERATE 81933 JOY SEBASTIANATJ 9 E. ANNE-MARIE Negron SAME MDPLC PHYS/QHP 5/>YRS INIT 30 MIN INJECTION 22050 Nicki SEBASTIAN ANESTHETI MDPLC C [facility] [place]X 14265 SHEYLA STAPLETON ANES&/STR 9 Ely Negron D JT NRV MDPLC CRV/THRC EA LVL NJX 76676 SHEYLA STAPLETON ANES&/STR 9 Ely Negron D JT NRV MDPLC CRV/THRC 1 LVL FLUOR 66529 LAMONTE SEBASTIAN/CA 9 Ely Negron TH MDPLC SPINE/PAR ASPINAL DX/THER ADDON BLOOD 45202 [facility] COUNT 9 MEDICAL G, SUE COMPLETE GROUP B AUTO&AUTO DIFRNTL WBC NJX 78475 VÍCTOR RIVERAS&/STR 9 Ely Guardado JT NRV MDPLC CRV/THRC EA LVL FLUOR 22929 SHEYLA XIE NEEDLE/CA 9 Ely EDGAR MDPLC SPINE/PAR ASPINAL DX/THER ADDON NJX 59335 VÍCTOR RIVERAS&/STR 9 Ely Guardado JT NRV MDPLC CRV/THRC 1 LVL MODERATE 06119 RADHA RIVERA 9 Ely Cedillo SAME MDPLC PHYS/QHP 5/>YRS INIT 30 MIN RADEX 37843 STEVENALIYAHAbril BALTAZAR, SPINE 9 MEDICAL CHRISTINE Powell THORACIC IMAGING 3 VIEWS ASSOCIATE S RADEX 62175 ANDRZEJ DONNELLY SPINE 9 [facility] LUMBOSACR INC INC AL MINIMUM 4 VIEWS DSTRJ 92385 HIRAL SEBASTIAN 8 Ely Negron PVRT MDPLC FACET JT NRV CRV/THRC 1 LVL DSTRJ 55038 HIRAL SEBASTIAN 8 Ely Negron PVRT MDPLC FACET JT NRV CRV/THRC EA LVL FLUOR 20704 SHEYLA STAPLETON NEEDLE/CA 8 Ely Negron TH MDPLC SPINE/PAR ASPINAL DX/THER ADDON BLOOD [address] COUNT 8 [facility] COMPLETE AUTO&AUTO MEDICAL MEDICALCE [place] [address] ST THYROID 8 [facility] STIMULATI NG MEDICALCE MEDICAL[place] [address] FREE 8 [facility] THYROXINE MEDICALCE [place]X 83971 SHEYLA STAPLETON ANES&/STR 8 Ely Guradado JT NRV MDPLC CRV/THRC EA LVL FLUOR 52490 SHEYLA STAPLETON NEEDLE/CA 8 Ely EDGAR MDPLC SPINE/PAR ASPINAL DX/THER [place]ON NJX 46443 SHEYLA STAPLETON ANES&/STR 8 Ely SanchezT NRV MDPLC CRV/THRC 1 LVL NJX 68371 ANN RIVERA&/STR 8 Ely Guardado JT NRV MDPLC CRV/THRC 1 LVL FLUOR 56587 SHEYLA XIE NEEDLE/CA 8 Ely EDGAR MDPLC SPINE/PAR ASPINAL DX/THER ADDON NJX 73979 SHEYLA XIE ANES&/STR 8 NguyenNichole ANNE-MARIE Guardado JT NRV MDPLC CRV/THRC EA LVL FLUOR 10081 LAMONTE RIVERA/CA 8 Ely ANNE-MARIE Cedillo TH MDPLC SPINE/PAR ASPINAL DX/THER ADDON DSTRJ 70911 HIRAL RIVERA 8 NguyenNichole ANNE-MARIE CARRION Nguyen PVRT MDPLC FACET JT NRV CRV/THRC EA LVL DSTRJ 55554 HIRAL RIVERA 8 Ely ANNE-MARIE CARRION Nguyen PVRT MDPLC FACET JT NRV CRV/THRC 1 LVL RADIOLOGI 37367 [facility] 8 YELITZA CHEST 2 ASSOCIATE VIEWS S PSC FRONTAL&L [place]TERAL NJX 67446 SHEYLA STAPLETON, ANES&/STR 8 Ely ANNE-MARIE Guardado JT NRV MDPLC CRV/THRC 1 LVL FLUOR 59588 SHEYLA STAPLETON, NEEDLE/CA 8 Ely ANNE-MARIE EDGAR MDPLC SPINE/PAR ASPINAL DX/[place] NJX 33182 SHEYLA STAPLETON, ANES&/STR 8 Ely ANNE-MARIE Guardado JT NRV MDPLC CRV/THRC EA LVL NJX 01945 SHEYLA STAPLETON, ANES&/STR 8 Ely ANNE-MARIE Guardado JT NRV MDPLC CRV/THRC EA LVL FLUOR 61836 SHEYLA STAPLETON, NEEDLE/CA 8 Ely ANNE-MARIE Negron TH MDPLC SPINE/PAR ASPINAL DX/THER ADDON NJX 90264 SHEYLA SAMPSONON, ANES&/STR 8 Ely ANNE-MARIE Guardado JT NRV MDPLC CRV/THRC 1 LVL RADEX 68081 [facility] BALTAZAR, NASAL 8 MEDICAL CHRISTINE P BONES IMAGING COMPLETE ASSOCIATE MINIMUM 3 [place] [address] THYROID 8 [facility] JACOBS STIMULATI NG MEDICALCE MEDICALCE HORMONE NTER NTER TSH COLLECTIO 33798 [facility], N VENOUS 8 MEDICAL VIRAL BLOOD GROUP VENIPUNCT URE ORTHOPANT 07779 ANDRZEJ DONNELLY OGRAM 8 [facility] INC INC RADEX 72524 ANDRZEJ DONNELLY SHOULDER 8 [facility] COMPLETE INC INC MINIMUM 2 VIEWS RADEX 87177 [place] BALTAZAR, SPINE 8 MEDICAL CHRISTINE P CERVICAL IMAGING 6 OR MORE ASSOCIATE VIEWS S Encounters Encounter Start End Date Code Location Performer Type Date OFFICE 35285 [facility] 7 7 [place] T VISIT 15 PHYSICIAN MINUTES [facility]OSPITAL [facility] - 7 7 [facility] T EMERGENCY 36472 THE 7 7 [facility] T VISIT LOW/MODER SEVERITY OFFICE 00551 [facility] 7 7 [place] T VISIT 25 PHYSICIAN MINUTES S OFFICE 26740 [facility] 6 6 [place] ALEX T VISIT 15 PHYSICIAN MINUTES S OFFICE 78047 [facility] 6 6 [place] T VISIT 25 PHYSICIAN MINUTES S EMERGENCY 59656 TAMMI MCCRAY 6 6 EMERGENCY [facility] T VISIT PHYSICIAN MODERATE S SEVERITY HOSPITAL ST - 5 5 [place] OUTPATIEN [facility]A EMERGENCY 91593 [facility] 5 5 [place] [facility] T VISIT MODERATE SEVERITY [facility] - 5 5 [facility] 5 [place] OUTPATIEN [facility] 98996 . 5 5 [place] [facility] VISIT MODERATE SEVERITY [facility] ST - 5 5 [place] [facility] T EPIC PROFESSIONAL ST OFFICE 20488 SHAILA COLLINS [facility] 5 5 LTH T NEW 30 ORTHOPAE MINUTES EMERGENCY 11-03-201 11-03-201 02051 [facility]ERT WOOD 3 3 MANUEL MANUEL [facility] T VISIT MODERATE SEVERITY OFFICE 90212 STEPHANIE SCHUSSLER OUTPATIEN 3 3 THO THO T VISIT [address] [facility] 61088 LARYUSSJUSTIN GEORGELER OUTPATIEN 3 3 THO THO T VISIT [address] - 3 3 [facility] 09271 STEPHANIE BARTHUSSLER OUTPATIEN 3 3 THO THO T VISIT [address] - 3 3 [facility] OFFICE 15793 [place] [facility] 3 3 DI MAR DI MAR T VISIT 25 MINUTES OFFICE 62236 GRUNKEMEY GRUNKEMEY OUTPATIEN 3 3 ER MAT ER MAT T NEW 45 MINUTES HOSPITAL THE - 2 2 [facility] THE - 2 2 [facility] - 2 2 [facility] [address] [facility] MANUEL 2 2 [place] [facility] T VISIT MODERATE SEVERITY OFFICE 61544 BINDU G BINDU G OUTPATIEN 2 2 T VISIT 25 MINUTES OFFICE 41818 BINDU G BINDU G OUTPATIEN 1 1 T VISIT 25 MINUTES HOSPITAL UNIVERSIT - 1 1 Y [facility] T INC. OFFICE 08930 [facility] 1 1 Y T VISIT HOSPITAL 10 INC. MINUTES OFFICE 93508 BINDU Torres OUTPATIEN 1 1 T VISIT 15 MINUTES EMERGENCY 89630 [facility] 1 1 PHYSICIAN MUSA [facility] S T VISIT HIGH/URGE NT SEVERITY OFFICE 82555 [facility] 1 Y T VISIT HOSPITAL 10 INC. MINUTES HOSPITAL UNIVERSIT - 1 1 Y [facility] T INC. EMERGENCY [address] [facility] 1 1 CARE BETTINA [facility] PHYS T VISIT [facility] HIGH/URGE NT SEVERITY OFFICE 28223 WILLIE Torres [facility] 1 1 Jamil RUANO VISIT MD WING 15 MINUTES HOSPITAL UNIVERSIT - 1 1 Y INPATIENT HOSPITAL INC. EMERGENCY 57708 EMERGENCY [facility] DEPT 1 1 CARE VISIT PHYS HIGH [facility] SEVERITY& THREAT [facility] [address] ST 0 0 [facility] T VISIT HIGH/URGE NT SEVERITY [facility]OSPITAL ST - 0 0 [facility] T OFFICE 26882 WILLIE Torres OUTPATIEN 0 0 Jamil RUANO VISIT MD WING 25 MINUTES OFFICE 48278 ZAIDA JAMES 0 0 Melissa RUANO VISIT MD WING 15 MINUTES HOSPITAL ANDRZEJ - 0 0 [facility] T OFFICE 00728 ZAIDA JAMES 0 0 Melissa RUANO T VISIT MD WING [address] - 0 0 [facility] T EMERGENCY 11393 [facility], 0 0 [place] PETER Guardado [facility] T VISIT HIGH/URGE NT SEVERITY OFFICE 13564 WILLIE RUANO OUTPATIEN 9 9 Melissa RUANO A T VISIT [facility] 15 MINUTES OFFICE 13051 WILLIE Torres OUTPATIEN 9 9 B[place], T VISIT [facility] 25 MINUTES OFFICE 66239 WILLIE RUANO OUTPATIEN 9 9 Melissa RUANO A T VISIT [facility] 25 MINUTES OFFICE 89772 [facility] 9 9 MEDICAL SUE Torres T VISIT GROUP B 25 MINUTES OFFICE 98808 [facility] 9 9 MEDICAL SUE Torres T VISIT GROUP [facility] 15 MINUTES [facility] 9 [facility] OFF[facility] 35278 ZAIDA SEBASTIAN 9 9 Ely KO T T VISIT MDPLC 10 MINUTES OFFICE 64548 [facility] 8 8 MEDICAL SUE Torres T VISIT GROUP B [address] 8 8 [facility] [place] [address] 8 [facility]ICE 09468 [facility] 8 8 Ely KO T T NEW 30 MDPLC MINUTES [facility] [place] [facility] 8 8 [facility] T EMERGENCY 37106 ANDRZEJ 8 8 [facility] T VISIT MODERATE SEVERITY EMERGENCY 76407 ANDRZEJ VALENTINO, 8 8 [facility] T VISIT PROF SERV LOW/MODER SEVERITY OFFICE 63257 [facility] ZAIDA GER[facility] 8 8 MEDICAL VIRAL T VISIT GROUP 15 MINUTES OFFICE 19367 [facility] ZAIDA [facility] 8 8 MEDICAL VIRAL T VISIT GROUP [address] - 8 8 [place] [facility] [place] OUTPATIEN INC T OFFICE 56283 [facility] ZAIDA [facility]ER[facility] 8 8 MEDICAL VIRAL T VISIT GROUP 15 MINUTES [facility] 8 8 [facility] OUTPATIEN INC T OFFICE 12433 [facility] ZAIDA GERBER 8 8 MEDICAL VIRAL T VISIT GROUP 25 MINUTES
--- OUTSIDE RECORDS SUMMARY | 2016-07-06 16:51 | External Medical Summary Rpt ---
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 0 MIGUE M COMPLETE ASSOCIATE MINIMUM 3 S PSC VIEWS INJECTION 28347 WILLIE RUANO, 0 Melissa RUANO MD C [facility] NRV THERAPEUT 37515 WILLIE RUANO, IC 0 Melissa RUANO PROPHYLMILLY WING TIC/DX INJECTION SUBQ/IM INJECTION 22282 WILLIE RUANO 0 Melissa RUANO A SINGLE/ML MD WING T TRIGGER POINT 3/> MUSCLES INJECTION 64264 WILLIE RUANO, 9 BINDU, G A SINGLE/ML MD WING T TRIGGER POINT 3/> MUSCLES INJECTION 71741 WILLIE RUANO, Melissa MORSE ANESTHETI [facility] C [facility] NRV ARTHROCEN 99326 WILLIE RUANO TESIS 9 Melissa RUANO ASPIR&/IN MD WING J MAJOR JT/BURSA W/O US INJECTION 53080 WILLIE Torres 9 BINDU, LINWOOD LAZO [facility] C [facility] NRV INJECTION 00149 Nicki JAMES G A ANESTHETI [facility] C [facility] NRV INJECTION 43084 WILLIE RUANO, Melissa MORSE SINGLE/ML MD WING T TRIGGER POINT 3/> MUSCLES FLUOR 61777 SHEYLA RISON, NEEDLE/CA 9 Ely XIE STEFANI Negron TH MDPLC SPINE/PAR ASPINAL DX/[place] NJX 85595 SHEYLA STAPLETON, ANES&/STR 9 ENichole ANNE-MARIE Negron D JT NRV MDPLC CRV/THRC 1 LVL NJX 29393 SHEYLA STAPLETON, ANES&/STR 9 Ely ANNE-MARIE Negron D JT NRV MDPLC CRV/THRC EA LVL DSTRJ 59413 SHEYLA STAPLETON NULYT 9 Ely XIE STEFANI Negron PVRT MDPLC FACET JT NRV CRV/THRC 1 LVL DSTRJ 66944 SHEYLA STAPLETON NULYT 9 Ely XIE STEFANI Negron PVRT MDPLC FACET JT NRV CRV/THRC EA LVL FLUOR 64430 SHEYLA RISON, NEEDLE/CA 9 Ely ANNE-MARIE Negron TH MDPLC SPINE/PAR ASPINAL DX/THER ADDON FLUOR 89982 SHEYLA RISON, NEEDLE/CA 9 Nguyen. XIE STEFANI Negron TH MDPLC SPINE/PAR ASPINAL DX/THER ADDON DSTRJ 31878 SHEYLA STAPLETON, NULYT 9 Ely ANNE-MARIE Negron PVRT MDPLC FACET JT NRV CRV/THRC 1 LVL DSTRJ 34372 HIRAL SEBASTIAN 9 Nguyen. ANNE-MARIE Negron PVRT MDPLC FACET JT NRV CRV/THRC EA LVL INJECTION 33439 Nicki SEBASTIAN ANESTHETI MDPLC C [facility] NRV MODERATE 68191 JOY SEBASTIANATJ 9 Nguyen. ANNE-MARIE Negron SAME MDPLC PHYS/QHP EACH ADDL 15 MIN MODERATE 88967 JOY SEBASTIANATLaura 9 E. ANNE-MARIE Negron SAME MDPLC PHYS/QHP 5/>YRS INIT 30 MIN MODERATE 24908 JOY SEBASTIANATJ 9 E. ANNE-MARIE Negron SAME MDPLC PHYS/QHP 5/>YRS INIT 30 MIN INJECTION 15816 Nicki SEBASTIAN ANESTHETI MDPLC C [facility] NR[place]X 41879 SHEYLA STAPLETON ANES&/STR 9 Ely Negron D JT NRV MDPLC CRV/THRC EA LVL NJX 39560 SHEYLA STAPLETON ANES&/STR 9 Ely Negron D JT NRV MDPLC CRV/THRC 1 LVL FLUOR 14017 LAMONTE SEBASTIAN/CA 9 Ely Negron TH MDPLC SPINE/PAR ASPINAL DX/THER ADDON BLOOD 87330 [facility] COUNT 9 MEDICAL G, SUE COMPLETE GROUP B AUTO&AUTO DIFRNTL WBC NJX 12433 VÍCTOR RIVERAS&/STR 9 Ely Guardado JT NRV MDPLC CRV/THRC EA LVL FLUOR 85268 SHEYLA XIE NEEDLE/CA 9 Ely EDGAR MDPLC SPINE/PAR ASPINAL DX/THER ADDON NJX 36421 VÍCTOR RIVERAS&/STR 9 Ely Guardado JT NRV MDPLC CRV/THRC 1 LVL MODERATE 10541 RADHA RIVERA 9 Ely Cedillo SAME MDPLC PHYS/QHP 5/>YRS INIT 30 MIN RADEX 12419 STEVENALIYAHAbril BALTAZAR, SPINE 9 MEDICAL CHRISTINE Powell THORACIC IMAGING 3 VIEWS ASSOCIATE S RADEX 37317 ANDRZEJ DONNELLY SPINE 9 [facility] LUMBOSACR INC INC AL MINIMUM 4 VIEWS DSTRJ 10585 HIRAL SEBASTIAN 8 Ely Negron PVRT MDPLC FACET JT NRV CRV/THRC 1 LVL DSTRJ 94752 HIRAL SEBASTIAN 8 Ely Negron PVRT MDPLC FACET JT NRV CRV/THRC EA LVL FLUOR 49899 SHEYLA STAPLETON NEEDLE/CA 8 Ely Negron TH MDPLC SPINE/PAR ASPINAL DX/THER ADDON BLOOD [address] COUNT 8 [facility] COMPLETE AUTO&AUTO MEDICAL MEDICALCE [place] [address] ST THYROID 8 [facility] STIMULATI NG MEDICALCE MEDICAL[place] [address] FREE 8 [facility] THYROXINE MEDICAL[place] [address] SHEYLA STAPLETON ANES&/STR 8 Ely Guardado JT NRV MDPLC CRV/THRC EA LVL FLUOR 08614 SHEYLA STAPLETON NEEDLE/CA 8 Ely EDGAR MDPLC SPINE/PAR ASPINAL DX/THER [place] NJX 96205 SHEYLA STAPLETON ANES&/STR 8 Ely SanchezT NRV MDPLC CRV/THRC 1 LVL NJX 70472 ANN RIVERA&/STR 8 Ely Guardado JT NRV MDPLC CRV/THRC 1 LVL FLUOR 03684 SHEYLA XIE NEEDLE/CA 8 Ely EDGAR MDPLC SPINE/PAR ASPINAL DX/THER [place]ON NJX 67103 SHEYLA XIE ANES&/STR 8 NguyenNichole ANNE-MARIE Guardado JT NRV MDPLC CRV/THRC EA LVL FLUOR 39203 LAMONTE RIVERA/CA 8 Ely ANNE-MARIE Cedillo TH MDPLC SPINE/PAR ASPINAL DX/THER ADDON DSTRJ 00713 HIRAL RIVERA 8 NguyenNichole ANNE-MARIE CARRION Nguyen PVRT MDPLC FACET JT NRV CRV/THRC EA LVL DSTRJ 19305 HIRAL RIVERA 8 Ely ANNE-MARIE CARRION Nguyen PVRT MDPLC FACET JT NRV CRV/THRC 1 LVL RADIOLOGI 31914 [facility] 8 YELITZA CHEST 2 ASSOCIATE VIEWS S PSC FRONTAL&L ATERAL NJX 41373 SHEYLA STAPLETON, ANES&/STR 8 Ely ANNE-MARIE Guardado JT NRV MDPLC CRV/THRC 1 LVL FLUOR 93580 SHEYLA STAPLETON, NEEDLE/CA 8 Ely ANNE-MARIE EDGAR MDPLC SPINE/PAR ASPINAL DX/THER [place] NJX 55676 SHEYLA STAPLETON, ANES&/STR 8 Ely ANNE-MARIE Guardado JT NRV MDPLC CRV/THRC [place] LVL NJX 11761 SHEYLA STAPLETON, ANES&/STR 8 Ely ANNE-MARIE Guardado JT NRV MDPLC CRV/THRC EA LVL FLUOR 83412 SHEYLA STAPLETON, NEEDLE/CA 8 Ely ANNE-MARIE Negron TH MDPLC SPINE/PAR ASPINAL DX/[place] NJX 50249 SHEYLA SAMPSONON, ANES&/STR 8 Ely ANNE-MARIE Guardado JT NRV MDPLC CRV/THRC 1 LVL RADEX 04539 [facility] BALTAZAR, NASAL 8 MEDICAL CHRISTINE P BONES IMAGING COMPLETE ASSOCIATE MINIMUM [address] [place] [address] THYROID 8 [facility] JACOBS STIMULATI NG MEDICALCE MEDICALCE HORMONE NTER NTER TSH COLLECTIO 28916 [facility] GERBER, N VENOUS 8 MEDICAL VIRAL BLOOD GROUP VENIPUNCT URE ORTHOPANT 28438 ANDRZEJ DONNELLY OGRAM 8 [facility] INC INC RADEX 78006 ANDRZEJ DONNELLY SHOULDER 8 [facility] COMPLETE INC INC MINIMUM 2 VIEWS RADEX 34693 [place] BALTAZAR, SPINE 8 MEDICAL CHRISTINE P CERVICAL IMAGING 6 OR MORE ASSOCIATE VIEWS S Encounters Encounter Start End Date Code Location Performer Type Date OFFICE 91623 [facility] 7 [place] T VISIT 15 PHYSICIAN MINUTES [facility] - 7 7 [facility] T EMERGENCY 65756 THE 7 7 [facility] T VISIT LOW/MODER SEVERITY OFFICE 51364 [facility] 7 7 [place] T VISIT 25 PHYSICIAN MINUTES S OFFICE 87396 [facility] 6 6 [place] ALEX T VISIT 15 PHYSICIAN MINUTES S OFFICE 54823 [facility] 6 6 [place] T VISIT 25 PHYSICIAN MINUTES S EMERGENCY 47518 [facility] 6 6 [facility] VISIT PHYSICIAN MODERATE S SEVERITY [facility]PITAL ST - 5 5 [place] OUTPATIEN [facility] EMERGENCY 51446 [facility] 5 5 [place] R [facility] T VISIT MODERATE SEVERITY [facility]OSPITAL ST[facility] - 5 5 [place] [facility] ST[facility] - 5 5 [place] OUTPATIEN [facility] 65586 . 5 5 [place] [facility] VISIT MODERATE SEVERITY HOSPITAL ST - 5 5 [place] [facility] MED CTR T SURGERY SCHEDULER ST OFFICE 94544 SHAILA COLLINS [facility] 5 5 LTH T NEW 30 ORTHOPAE MINUTES EMERGENCY 11-03-201 11-03-201 10614 [facility] 3 3 MANUEL MANUEL [facility] T VISIT MODERATE SEVERITY OFFICE 15488 STEPHANIE SCHUSSLER OUTPATIEN 3 3 THO THO T VISIT [address] [facility] [address] [facility] 3 [facility] OFFICE 16145 LARYUSSJUSTIN GEORGELER OUTPATIEN 3 3 THO THO T VISIT [address] - [address] [facility] [address] - 3 3 [facility] 82171 STEPHANIE BARTHUSSLER OUTPATIEN 3 3 THO THO T VISIT [address] - 3 3 [facility] 23188 [facility] 3 3 DI MAR DI MAR T VISIT 25 MINUTES OFFICE 57414 GRUNK[facility]EY GRUN[facility] OUTPATIEN 3 3 ER MAT ER MAT T NEW 45 MINUTES HOSPITAL THE - 2 2 [facility] THE - 2 2 [facility]. - 2 2 [facility] EMERGENCY 33022 [facility] MANUEL 2 2 [place] [facility] T VISIT MODERATE SEVERITY OFFICE 76192 BINDU G BINDU G OUTPATIEN 2 2 T VISIT 25 MINUTES OFFICE 54979 BINDU G BINDU G OUTPATIEN 1 1 T VISIT 25 MINUTES HOSPITAL UNIVERSIT - 1 1 Y [facility] T INC. OFFICE 12175 [facility] 1 1 Y T VISIT HOSPITAL 10 INC. MINUTES OFFICE 55161 BINDU Torres OUTPATIEN 1 1 T VISIT 15 MINUTES EMERGENCY 36263 [facility] 1 1 PHYSICIAN MUSA [facility] S T VISIT HIGH/URGE NT SEVERITY OFFICE 85436 [facility] 1 1 Y T VISIT HOSPITAL 10 INC. MINUTES HOSPITAL UNIVERSIT - 1 1 Y [facility] T INC. EMERGENCY 97190 EMERGENCY [facility] 1 1 CARE BETTINA [facility] PHYS T VISIT [facility] HIGH/URGE NT SEVERITY OFFICE 41390 WILLIE Torres [facility] 1 1 Jamil RUANO VISIT MD WING 15 MINUTES HOSPITAL UNIVERSIT - 1 1 Y INPATIENT HOSPITAL INC. EMERGENCY [address] DEPT 1 1 CARE VISIT PHYS HIGH [facility] SEVERITY& THREAT [facility] EMERGENCY [address] ST 0 0 [facility] T VISIT HIGH/URGE NT SEVERITY [facility] ST - 0 0 [facility] T OFFICE 41795 WILLIE Torres OUTPATIEN 0 0 Jamil RUANO VISIT MD WING 25 MINUTES OFFICE 66750 ZAIDA JAMES 0 0 Melissa RUANO VISIT MD WING 15 MINUTES HOSPITAL ANDRZEJ - 0 0 [facility] T OFFICE 92792 ZAIDA JAMES 0 0 Melissa RUANO T VISIT MD WING [address] - 0 0 [facility] T EMERGENCY 54564 [facility], 0 0 [place] PETER Guardado [facility] T VISIT HIGH/URGE NT SEVERITY OFFICE 88212 WILLIE RUANO OUTPATIEN 9 9 Melissa RUANO A T VISIT [facility] 15 MINUTES OFFICE 46130 WILLIE Torres OUTPATIEN 9 9 BINDU, T VISIT [facility] 25 MINUTES OFFICE 82398 WILLIE RUANO OUTPATIEN 9 9 Melissa RUANO A T VISIT [facility] 25 MINUTES OFFICE 69902 [facility] 9 9 MEDICAL SUE Torres T VISIT GROUP B 25 MINUTES OFFICE 75253 [facility] DEPART[facility] 9 9 MEDICAL SUE Torres T VISIT GROUP B 15 MINUTES HOSPITAL DIABLO - 9 9 [facility] OFF[facility] 85674 ZAIDA SEBASTIAN 9 9 Ely KO T T VISIT MDPLC 10 MINUTES OFFICE 27664 [facility] 8 8 MEDICAL SUE Torres T VISIT GROUP B [address] 8 8 [facility] [place] [address] 8 [facility] OFF[facility] 69791 [facility] 8 8 Ely KO T T NEW 30 MDPLC MINUTES HOSPITAL DIABLO - 8 8 [facility] T EMERGENCY 12449 ANDRZEJ 8 8 [facility] T VISIT MODERATE SEVERITY EMERGENCY 61862 ANDRZEJ VALENTINO, 8 8 [facility] T VISIT PROF SERV LOW/MODER SEVERITY OFFICE 60640 [facility] ZAIDA GERBER 8 8 MEDICAL VIRAL T VISIT GROUP 15 MINUTES OFFICE 25276 [facility] ZAIDA GER[facility] 8 8 MEDICAL VIRAL T VISIT GROUP [address] - 8 8 [place] [facility] - 8 8 [facility] OUTPATIEN INC T OFFICE 71626 [facility] ZAIDA GERBER 8 8 MEDICAL VIRAL T VISIT GROUP 15 MINUTES HOSPITAL DIABLO - 8 8 [facility] OUTPATIEN INC T OFFICE 26727 [facility] ZAIDA GERBER 8 8 MEDICAL VIRAL T VISIT GROUP 25 MINUTES
--- OUTSIDE RECORDS SUMMARY | 2016-07-06 16:54 | External Medical Summary Rpt ---
Demographics Preferred Language Kiswahili Marital Status Unknown Restorationist Affiliation Unknown Race Unknown Ethnic Group Unknown Author Author , Organization [employer] Address Unknown Phone Unavailable Purpose Continuity of Care Document - through 2016 Immunization No patient found.
--- OUTSIDE RECORDS SUMMARY | 2016-07-06 16:54 | External Medical Summary Rpt ---
Demographics Preferred Language Swedish Marital Status Unknown Christianity Affiliation Unknown Race Unknown Ethnic Group Unknown Author Author , Organization [employer] Address Unknown Phone Unavailable Purpose Continuity of Care Document - through 2016 Immunization No patient found.
--- OUTSIDE RECORDS SUMMARY | 2016-07-06 16:55 | External Medical Summary Rpt ---
[...] using the Aptima Combo 2 assay from [employer] /Rapid Pathogen Screening be.\\.br \\A negativ e result does not [...] of this test were validat ed by [facility] are laborat ory. This assay is FDA [...] develop ed and validat ed by the [facility] are laborat ory. Detaile d methodo logy [...] in 11:02 source source PM data data Miner# 0.5 0.0 - x10(3)/ No No Oct [...] Date tion ce etation Range Fax to [phone] Hepatit Negativ Negativ No No No Jun [...] data (>= 5, Archite ct Anti-HC V). [facility] are Laborat ory recomme nds collect ing a new specime n and testing for Hepatit is C RNA Quantit ative PCR to confirm positiv ity and provide a baselin e viral load for monitor ing treatme nt efficac y. Hemogram Observa Value Referen Units Interpr Notes Date tion ce etation Range Fax to [phone] LEUKOCY 8.0 4.0 - x10(3)/ No No [...] in 9:40 AM source source data data Miner# 0.4 0.0 - x10(3)/ No No Nov [...] x10(3)/ No No Nov 1 GHASSAN 11.0 [facility] informa informa 2014 tion in tion in 9:40 AM source source data data Erythro 4.74 3.80 - x10(6)/ No No Nov 1 cytes 5.10 [facility] informa informa 2014 [#/volu tion in [...] 's informa tion was entered into a [employer] system with a\\.br\\t arget\\. br\\due date for [...] Test Kit by RT-PCR. \\.br\\Pe rformed at: [facility]\\.br\\ [facility] [employer] [facility], [address]\\.br \\ [place] [address] Hep Prf-Ac Observa Value Referen Units Interpr [...] data (>= 5, Archite ct Anti-HC V). [facility] are Laborat ory recomme nds collect ing [...] in 12:40 source source PM data data Miner# 0.3 0.0 - x10(3)/ No No Mar [...] 9:18 PM RT-PCR- source source source enhance CELLFOR data data data d report for this test go to:\\.br \\https: //erpt. [facility]\\.b r\\UserN allen=7o= WQ+5\\.b r\\Passw ord=B+f 5*6Kz Hepatic [...] in 3:15 PM source source data data Miner# 0.2 0.0 - x10(3)/ No No Apr [...] in 2:01 PM source source data data Miner# 0.2 0.0 - x10(3)/ No No Sep [...] for this test go to:\\.br \\https: //erpt. [facility]\\.b r\\UserN allen=8n* YT7\\.br \\Passwo rd=4Ck? !7Kj Auto [...] in 3:00 PM source source data data Miner# 0.2 0.0 - x10(3)/ No No Sep [...] form/10 source source 0 data data leukocy ghassna in Blood by Manual count Atyp 6 [...] in 2:19 PM source source data data Miner# 0.2 0.0 - x10(3)/ No No Sep [...] for this test go to:\\.br \\https: //erpt. [facility]\\.b r\\UserN allen=gJ* 5!7Ka\\. br\\Pass word=Hi 7*?Ya9 Diff [...] in 2:30 PM source source data data Miner# 0.1 0.0 - x10(3)/ No No Aug [...] in 11:01 source source AM data data Miner# 0.2 0.0 - x10(3)/ No No Sep [...] paramet ers were obtaine d in the [facility] axialor ientati on.Exam ination demonst rates no [...] Further assessm ent canbe obtaine d ifini [facility] indicat ed with dedicat ed exam.IM [...] paramet ers were obtaine d in the [facility] axialor ientati on.Ther e is anterio r [...]
--- OUTSIDE RECORDS SUMMARY | 2016-07-06 16:55 | External Medical Summary Rpt ---
[...] using the Aptima Combo 2 assay from [employer] /[employer] be.\\.br \\A negativ e result does not [...] of this test were validat ed by [facility] are laborat ory. This assay is [...] develop ed and validat ed by the [facility] are laborat ory. Detaile d methodo [...] in 11:02 source source PM data data Forrest# 0.5 0.0 - x10(3)/ No No Oct [...] Date tion ce etation Range Fax to [phone] Hepatit Negativ Negativ No No No Jun [...] data (>= 5, Archite ct Anti-HC V). [facility] are Laborat ory recomme nds collect ing a new specime n and testing for Hepatit is C RNA Quantit ative PCR to confirm positiv ity and provide a baselin e viral load for monitor ing treatme nt efficac y. Hemogram Observa Value Referen Units Interpr Notes Date tion ce etation Range Fax to [phone] LEUKOCY 8.0 4.0 - x10(3)/ No No [...] in 9:40 AM source source data data Forrest# 0.4 0.0 - x10(3)/ No No Nov [...] x10(3)/ No No Nov 1 GHASSAN 11.0 [facility] informa informa 2014 tion in tion in 9:40 AM source source data data Erythro 4.74 3.80 - x10(6)/ No No Nov 1 cytes 5.10 [facility] informa informa 2014 [#/volu tion in tion [...] 's informa tion was entered into a [employer] system with a\\.br\\t arget\\. br\\due date for [...] Test Kit by RT-PCR. \\.br\\Pe rformed at: [facility]\\.br\\ [facility] [employer] [facility], [address]\\.br \\ [place] [address] Hep Prf-Ac Observa Value Referen Units Interpr [...] data (>= 5, Archite ct Anti-HC V). [facility] are Laborat ory recomme nds collect [...] in 12:40 source source PM data data Forrest# 0.3 0.0 - x10(3)/ No No Mar [...] 9:18 PM RT-PCR- source source source enhance [employer] data data data d report for this test go to:\\.br \\https: //erpt. [employer]\\.b r\\UserN allen=7o= WQ+5\\.b r\\Passw ord=B+f 5*6Kz Hepatic [...] in 3:15 PM source source data data Forrest# 0.2 0.0 - x10(3)/ No No Apr [...] in 2:01 PM source source data data Forrest# 0.2 0.0 - x10(3)/ No No Sep [...] for this test go to:\\.br \\https: //erpt. [employer]\\.b r\\UserN allen=8n* YT7\\.br \\Passwo rd=4Ck? !7Kj Auto [...] in 3:00 PM source source data data Forrest# 0.2 0.0 - x10(3)/ No No Sep [...] in 2:19 PM source source data data Forrest# 0.2 0.0 - x10(3)/ No No Sep [...] for this test go to:\\.br \\https: //erpt. [employer]\\.b r\\UserN allen=gJ* 5!7Ka\\. br\\Pass word=Hi 7*?Ya9 Diff [...] in 2:30 PM source source data data Forrest# 0.1 0.0 - x10(3)/ No No Aug [...] in 11:01 source source AM data data Forrest# 0.2 0.0 - x10(3)/ No No Sep [...] paramet ers were obtaine d [facility] axialor ientati on.Exam ination demonst rates no [...] Further assessm ent canbe obtaine d [facility] indicat ed with dedicat ed exam.IM [...] paramet ers were obtaine d in the [facility] axialor ientati on.Ther e is anterio r [...]
[2016-07-06] MEDS ORDERED: CLINDAMYCIN HC300 MG PO (18:37)
[2016-07-06] MEDS ORDERED: AUGMENTIN 875-1 EACH PO (18:37)
[2016-07-06 19:35] VITALS: BP 142/97
--- NOTE | 2016-07-07 14:16 | RADIOLOGY REPORT PS360 ---
CT MAXILLOFACIAL W/CONTRAST Ordering Physician: Fabian Colmenares MD Patient Age: 41 years: Female\\ HISTORY: LEFT FACE SWELLINGsince earlier today.. 41-year-old. TECHNIQUE: 100 cc Isovue-370 hand injection.. Helical CT scanning performed through the facial bones with sagittal and coronal reconstructions on CT workstation. FINDINGS No previous studies for comparison . Focal abscess collection overlying the left maxilla.. A 16 mm AP x10 mm wide, x13 mm height fluid collection, with extensive thickened enhancing soft tissue rim about this area reflecting inflammatory response... Inflammation extends throughout the left face and particularly anteriorly overlying the left maxilla and left mandible with enlarged reactive lymph nodes seen in this region left neck.. . Beneath this area there there is a tooth periapical lucency about the root, I believe left bicuspid correlation required. Close inspection suggest suggest or disruption and breakthrough of the cortex of the maxilla overlying the to the apex leading to this abscess collection. Axial image 56 & 57 . This Likely giving rise to this abscess.. Requires dental evaluation. . On also note that this periapical lucency about the root also significantly since the cortex the towards the left maxillary sinus.. Of this conceivably could yield a defect inferior sinus with tooth extraction but caution should be taken. As noted there is swelling throughout the entire left face related to abscess. No deep inflammation otherwise seen. Parotid gland and submandibular gland otherwise intact. Mastoid air cells of fairly well aerated no significant findings middle ear clear IACs unremarkable.. The left orbit orbit appears intact and there is no retrobulbar inflammation associated.. 15 x 8 mm lymph node anterior to the left mid gland. There is also a a lymph node left submental region I believe evident measuring over 1 cm enhancing. Axial image 70 ========= . Paranasal sinuses mucosal thickening: . left maxillary sinus:/Mild/moderate diffuse mucosal thickening at inferior left maxillary sinus. Slightly lobulated mucosal thickening just over 5 mm thickness inferiorly & less along the medial wall. Mucosal thickening noted superiorly at the left maxillary sinus includes a left ostomy for unit and ostia Right maxillary sinus with minor lobulated mucosal thickening inferiorly . [id number] left ethmoid sinusitis. Opacification of ethmoid air cells seen anteriorly as well as posteriorly. Mild right ethmoid sinusitis. Frontal sinuses clear. Sphenoid sinus with mild mucosal thickening anteriorly. . note: This study was dictated with a voice-recognition system. There may be typographical error is related to such. If they are significant please notify us for corrections ----IMPRESSION 1. Left maxillary dental abscess. Extensor and disruption lateral cortex maxilla giving rise to a 16 mm adjacent soft tissue abscess- overlying left mandible-,., arising from this tooth with periapical abscess. Also note very thin cortex medially overlying this tooth root/periapical lucency but not yet disrupted into the left mastoid sinus 2. Swelling throughout the left face, with reactive nodes left neck. 3. Incidental mild paranasal sinus disease left
== END 2016-07-06 19:40 | disposition home or self-care (01) ==
LOC: ER 14:49
PROVIDERS: Emergency Medicine
DX: L03.213 Periorbital cellulitis (principal); K04.7 Periapical abscess without sinus